=== PATIENT | female | born 1940 | race Caucasian/White ===

== ENCOUNTER 2016-05-04 12:22 | Outpatient (CLI) | payer MEDICARE, OTHER ==
[2016-05-04] MEDS ORDERED: IOPAMIDOL-300 100 ML VIAL IVP ONE (15:10)
[2016-05-04] MEDS ORDERED: IOPAMIDOL-300 50 ML VIAL PO ONE (15:10)
== END 2016-05-04 12:23 | disposition home or self-care (01) ==
DX: K57.30 Diverticulosis of large intestine without perforation or abscess without bleeding (principal); K62.89 Other specified diseases of anus and rectum
CPT/HCPCS: 36415; 74177; 82565; Q9967

== ENCOUNTER 2016-05-07 07:34 | Day surgery (SDC) | payer MEDICARE, OTHER ==
[2016-05-07] MEDS ORDERED: LACTATED RINGERS 1,000 ML IV ONE ×4 (08:36→12:28)
[2016-05-07] MEDS ORDERED: SODIUM CHLORIDE 0.9% 1,000 ML IV ONE (09:48)
[2016-05-07] MEDS ORDERED: BUPIVACAINE 0.5%-EPI 1:200000 PF 30 ML VIAL SUBQ ONE (11:29)
[2016-05-07] MEDS ORDERED: LIDOCAINE 1% 50 ML MDV SUBQ ONE (11:29)
[2016-05-07] MEDS ORDERED: fentaNYL 100 MCG/2 ML VIAL IVP ONE (11:49)
[2016-05-07] MEDS ORDERED: MIDAZOLAM 2 MG/2 ML VIAL IVP ONE (11:49)
[2016-05-07] MEDS ORDERED: PROPOFOL 200 MG/20 ML VIAL IVP ONE (11:49)
[2016-05-07] MEDS ORDERED: ROCURONIUM 50 MG/5 ML VIAL IVP ONE (11:49)
[2016-05-07] MEDS ORDERED: HYDROCORTISONE SUCCINATE 100 MG/2 ML VIAL IVP ONE (11:49)
[2016-05-07] MEDS ORDERED: ePHEDrine 50 MG/ML AMP IVP ONE (11:49)
[2016-05-07] MEDS ORDERED: ONDANSETRON 4 MG/2 ML VIAL IVP ONE (11:49)
[2016-05-07] MEDS ORDERED: DEXAMETHASONE 4 MG/ML VIAL IVP ONE (11:49)
== END 2016-05-07 07:35 | disposition home or self-care (01) ==
PROC: 0DBQ7ZZ Excision of Anus, Via Natural or Artificial Opening (ICD-10-PCS; 2016-05-07)
PROC: 0DBP7ZX Excision of Rectum, Via Natural or Artificial Opening, Diagnostic (ICD-10-PCS; principal; 2016-05-07 08:45)
DX: K64.8 Other hemorrhoids (principal); K64.4 Residual hemorrhoidal skin tags; K60.2 Anal fissure, unspecified; E89.0 Postprocedural hypothyroidism; K21.9 Gastro-esophageal reflux disease without esophagitis; Z79.52 Long term (current) use of systemic steroids; Z88.2 Allergy status to sulfonamides
CPT/HCPCS: 45100; 46200; J7120

== ENCOUNTER 2016-05-19 07:29 | Outpatient (CLI) | payer MEDICARE, OTHER ==
[2016-05-19] MEDS ORDERED: GADOBUTROL 7.5 MMOL/7.5 ML VIAL IVP ONE (08:49)
== END 2016-05-19 07:30 | disposition home or self-care (01) ==
DX: K62.89 Other specified diseases of anus and rectum (principal); M53.3 Sacrococcygeal disorders, not elsewhere classified

== ENCOUNTER 2016-06-01 07:01 | Day surgery (SDC) | payer MEDICARE, OTHER ==
[2016-06-01] MEDS ORDERED: LACTATED RINGERS 1,000 ML IV ONE ×2 (07:32→09:55)
[2016-06-01] MEDS ORDERED: MIDAZOLAM 2 MG/2 ML VIAL IVP ONE (08:31)
[2016-06-01] MEDS ORDERED: fentaNYL 100 MCG/2 ML VIAL IVP ONE (08:31)
== END 2016-06-01 07:02 | disposition home or self-care (01) ==
PROC: 0DJD8ZZ Inspection of Lower Intestinal Tract, Via Natural or Artificial Opening Endoscopic (ICD-10-PCS; principal; 2016-06-01 08:15)
DX: K62.89 Other specified diseases of anus and rectum (principal); K64.8 Other hemorrhoids; K64.4 Residual hemorrhoidal skin tags; K57.30 Diverticulosis of large intestine without perforation or abscess without bleeding
CPT/HCPCS: 45378; J7120

== ENCOUNTER 2017-11-17 07:57 | Outpatient (CLI) | payer MEDICARE, OTHER ==
[2017-11-17] MEDS ORDERED: GADOBUTROL 7.5 MMOL/7.5 ML VIAL ONE (08:02)
[2017-11-17] MEDS ORDERED: GADOBUTROL 7.5 MMOL/7.5 ML VIAL IVP ONE (08:53)
--- NOTE | 2017-11-17 10:29 | MRI Report ---
Reason: ALTERED MENTAL STATUS Procedure Date: 11/17/2017 Accession Number: [id number] / [id number] Procedure: MRI - Brain W/WO CPT Code: FULL RESULT: EXAM: MRI BRAIN WITHOUT AND WITH CONTRAST EXAM DATE: 11/17/2017 09:03 AM. CLINICAL HISTORY: 77-year-old presenting with altered mental status including worsening confusion, disorientation, and memory loss. COMPARISON: None. TECHNIQUE: Multiplanar, multisequence T1-weighted and fluid-sensitive MR sequences of the brain were performed. Sequences optimized for routine evaluation. Other: None. IV Contrast: 6.5 cc of Gadavist. FINDINGS: Brain Volume: Normal for age. Parenchyma: No acute parenchymal hemorrhage, mass, or midline shift. Mild to moderate bilateral areas of T2/flair signal hyperintensity seen with a more geographic area of FLAIR signal abnormality involving the subcortical left frontal lobe (371, image 19). There is minimal patchy flare signal hyperintensity seen within the july. No areas of restricted diffusion seen to suggest acute infarct. No definite abnormal areas of hemosiderin deposition. No abnormal enhancement. Ventricles/Cisterns: Ventricles appear prominent but appropriate for the extent of volume loss. No definite evidence of hydrocephalus. No abnormal extra-axial fluid collection or hemorrhage. Cisterns are patent. No abnormal postcontrast enhancement. Orbits: Symmetric and unremarkable. Sella Turcica: The pituitary gland, cavernous sinuses, suprasellar cistern and optic chiasm are unremarkable. IAC: Symmetric and unremarkable. Vasculature: Normal signal flow void is seen in the major arterial structures at the skull base. The dural sinuses are patent and enhance normally. Sinuses: No acute sinus disease. Bones: No focal pathologic appearing marrow signal changes. Other: T2 hyperintense lesion seen within the superficial left parotid lobe likely presenting parotid cyst measuring up to 6 mm (series 601, image 2). IMPRESSION: 1. No definite acute intracranial pathology seen; specifically, no acute infarct, acute intracranial hemorrhage, mass, hydrocephalus, or midline shift. No abnormal postcontrast enhancement. 2. Mild to moderate white matter changes seen that while nonspecific, most likely represent sequela of chronic small vessel ischemic disease. RADIA
== END 2017-11-17 07:58 | disposition home or self-care (01) ==
LOC: DI 07:57
PROVIDERS: ATTEND Internal Medicine
DX: R41.82 Altered mental status, unspecified (principal)
CPT/HCPCS: 70553; A9585

== ENCOUNTER 2018-01-27 11:10 | Outpatient (CLI) | payer MEDICARE, OTHER ==
[2018-01-27 17:16] LABS: BASOPHILS # (AUTO) 0.1 10^3/uL (0.0-0.1); BASOPHILS % (AUTO) 0.5 %; EOSINOPHILS # (AUTO) 0.2 10^3/uL (0.0-0.7); EOSINOPHILS % (AUTO) 2.2 %; HGB - HEMOGLOBIN 14.8 g/dL (12.0-16.0); LYMPHOCYTES # (AUTO) 2.9 10^3/uL (1.5-3.5); MEAN CORPUSCULAR HEMOGLOBIN 31.7 pg (27.0-31.0); MEAN CORPUSCULAR HGB CONC 33.7 g/dL (32.0-36.0); MEAN CORPUSCULAR VOLUME 94.2 fL (81.0-99.0); MEAN PLATELET VOLUME 8.3 fL (7.9-10.8); MONOCYTES # (AUTO) 0.8 10^3/uL (0.0-1.0); MONOCYTES % (AUTO) 7.7 %; NEUTROPHILS # (AUTO) 6.8 10^3/uL (1.5-6.6); NEUTROPHILS % (AUTO) 62.6 %; PLT - PLATELET COUNT 324 10^3/uL (130-450); RED BLOOD COUNT 4.66 10^6/uL (4.20-5.40); RED CELL DISTRIBUTION WIDTH 14.3 % (12.0-15.0); WHITE BLOOD COUNT 10.8 x10^3/uL (4.8-10.8)
[2018-01-27 17:31] LABS: ALBUMIN 4.2 g/dL (3.2-5.5); ALBUMIN/GLOBULIN RATIO 1.1 (1.0-2.2); ALKALINE PHOSPHATASE 68 IU/L (42-121); ALT ALANINE AMINOTRANSFERASE 17 IU/L (10-60); AST ASPARTATE AMINOTRANSFERASE 33 IU/L (10-42); BILIRUBIN,TOTAL 0.4 mg/dL (0.2-1.0); BUN - BLOOD UREA NITROGEN 16 mg/dL (6-20); CALCIUM 9.5 mg/dL (8.5-10.3); CARBON DIOXIDE - CO2 22 mmol/L (21-32); CHLORIDE 90 mmol/L (101-111); CHOL/HDL RATIO 2.5 (<4.4); CHOLESTEROL 229 mg/dL; CREATININE 0.8 mg/dL (0.4-1.0); GFR - MDRD 70 (>89); GLUCOSE 101 mg/dL (70-100); HDL CHOLESTEROL 91 mg/dL; LDL CHOLESTEROL,CALCULATED 123 mg/dL; LDL/HDL RATIO 1.4 (<4.4); SODIUM 129 mmol/L (135-145); VLDL CHOLESTEROL 15 mg/dL
[2018-01-27 17:45] LABS: THYROID STIMULATING HORMONE 12.38 uIU/mL (0.34-5.60)
[2018-01-27 17:47] LABS: FREE T4 (FREE THYROXINE) 0.86 ng/dL (0.58-1.64)
== END 2018-01-27 23:59 | disposition home or self-care (01) ==
LOC: LAB.WCP 11:10
PROVIDERS: ATTEND Family Medicine
DX: R03.0 Elevated blood-pressure reading, without diagnosis of hypertension (principal); Z13.220 Encounter for screening for lipoid disorders; E89.0 Postprocedural hypothyroidism; R41.3 Other amnesia
CPT/HCPCS: 36415; 80053; 80061; 82607; 82746; 83721; 84439; 84443; 84481; 85025

== ENCOUNTER 2018-02-23 08:00 | Outpatient (CLI) | payer MEDICARE, OTHER ==
[2018-02-23 19:11] LABS: CALCIUM 8.8 mg/dL (8.5-10.3); CREATININE 0.6 mg/dL (0.4-1.0)
== END 2018-02-23 23:59 | disposition home or self-care (01) ==
LOC: LAB.WCP 08:00
PROVIDERS: ATTEND Family Medicine
DX: R03.0 Elevated blood-pressure reading, without diagnosis of hypertension (principal); E89.0 Postprocedural hypothyroidism
CPT/HCPCS: 36415; 80048; 84443

== ENCOUNTER 2018-03-27 08:00 | Outpatient (CLI) | payer MEDICARE, OTHER | END 2018-03-27 23:59 | disposition home or self-care (01) | LOC: LAB.WCP 08:00 | PROVIDERS: ATTEND Family Medicine | DX: E87.1 Hypo-osmolality and hyponatremia (principal) | CPT/HCPCS: 83935; 84300 ==

== ENCOUNTER 2018-03-27 09:47 | Outpatient (CLI) | payer MEDICARE, OTHER ==
--- NOTE | 2018-03-28 10:18 | XRAY Report ---
Reason: LF/RT CERVICAL RADICULOPATHY Procedure Date: 03/27/2018 Accession Number: [id number] / [id number] Procedure: WCP - Cervical Spine 2 View CPT Code: FULL RESULT: EXAM: CERVICAL SPINE RADIOGRAPHY EXAM DATE: 03/27/2018 10:04 AM. CLINICAL HISTORY: LF/RT CERVICAL RADICULOPATHY. COMPARISONS: None. TECHNIQUE: 3 views. FINDINGS: Alignment: Accentuated cervical lordosis and upper thoracic kyphosis. Minimal retrolisthesis C4 with respect to C5 and minimal anterior listhesis C7 with respect to T1 .No scoliosis. Bones: The cervical vertebral bodies and posterior elements are well seen from the skull base through C7-T1. Probable T4 vertebral plana. Moderate T2 vertebral body height loss. Disks: Degenerative disk space narrowing C3-C4, C4-C5, C5-C6, and C6-C7. Facets: Scattered degenerative disease. Soft Tissues: No prevertebral soft tissue swelling. The included lung apices are clear. IMPRESSION: Multilevel degenerative change cervical spine. Cervical spinal stenosis may be present but could be best assessed by MRI. T4 greater than T2 vertebral body height loss. RADIA
== END 2018-03-27 09:48 | disposition home or self-care (01) ==
LOC: DI.WCP 09:47
PROVIDERS: ATTEND Family Medicine
DX: M50.31 Other cervical disc degeneration, high cervical region (principal); M47.9 Spondylosis, unspecified; E87.1 Hypo-osmolality and hyponatremia
CPT/HCPCS: 72040; 83935; 84300

== ENCOUNTER 2018-04-08 13:36 | Outpatient (CLI) | payer MEDICARE, OTHER ==
--- NOTE | 2018-04-09 21:12 | MRI Report ---
Reason: CERVICAL RADICULOPATHY, LEFT AND RIGHT Procedure Date: 04/08/2018 Accession Number: [id number] / [id number] Procedure: MRI - Cervical Spine W/O CPT Code: FULL RESULT: EXAM: MRI CERVICAL SPINE WITHOUT CONTRAST EXAM DATE: 04/08/2018 03:02 PM. CLINICAL HISTORY: 77-year-old female. CERVICAL RADICULOPATHY, LEFT AND RIGHT. COMPARISONS: Radiographs cervical spine 03/27/2018 TECHNIQUE: Multiplanar, multisequence T1-weighted and fluid-sensitive sequences of the cervical spine without contrast. Other: None. FINDINGS: Neurologic Structures: The visualized posterior fossa structures are unremarkable. No signal abnormality in the visualized spinal cord. Alignment: Exaggerated cervical lordosis. Grade 1 retrolisthesis C4 on C5 measuring 2.5 mm. Grade 1 anterolisthesis C6 on C7 measuring 2.5 mm. Grade 1 anterolisthesis T2 on T3 measuring 2 mm. Bone Marrow: No evidence of acute fracture. Chronic anterior wedge compression fracture deformity of the T4 vertebral body with near complete height loss anteriorly, 2 mm posterior retropulsion. Interspace Levels/Facets: C1-C2: Unremarkable. C2-C3: Unremarkable. C3-C4: Moderate disk height loss and desiccation. Moderate diffuse disk bulge. Mild anterior dural compression. No significant central canal narrowing. Moderate left and mild to moderate right foraminal narrowing. C4-C5: Moderate to severe disk height loss and desiccation. Moderate posterior disk osteophyte complex. Mild bilateral facet arthropathy. Mild central canal narrowing. Moderate right and mild to moderate left foraminal narrowing. C5-C6: Moderate disk height loss and desiccation. Moderate posterior disk osteophyte complex. Mild anterior compression. No significant central canal narrowing. No foraminal narrowing. C6-C7: Moderate disk height loss and desiccation. Mild diffuse disk bulge. No significant central canal narrowing. No foraminal narrowing. C7-T1: Mild diffuse disk bulge. No significant central canal or foraminal narrowing. Musculature: Normal. No edema or fatty atrophy. Other: The paravertebral and prevertebral soft tissues are normal. IMPRESSION: 1. Moderate multilevel degenerative spondylosis, as detailed above and summarized below. No evidence of acute fracture or malalignment. Chronic anterior wedge compression fracture deformity of the T4 vertebral body with near complete height loss anteriorly, 2 mm posterior retropulsion. No cord signal abnormality. No bone marrow edema. 2. Exaggerated cervical lordosis. Grade 1 retrolisthesis C4 on C5 measuring 2.5 mm. Grade 1 anterolisthesis C6 on C7 measuring 2.5 mm. Grade 1 anterolisthesis T2 on T3 measuring 2 mm. 3. C3-C4: No significant central canal narrowing. Moderate left and mild to moderate right foraminal narrowing. Recommend correlation for left C4 radicular symptoms. 4. C4-C5: Mild central canal narrowing. Moderate right and mild to moderate left foraminal narrowing. Recommend correlation for right C5 radicular symptoms. 5. No significant central canal or foraminal narrowing at remaining cervical levels. RADIA
== END 2018-04-08 13:37 | disposition home or self-care (01) ==
LOC: DI 13:36
PROVIDERS: ATTEND Physician Assistant
DX: M47.22 Other spondylosis with radiculopathy, cervical region (principal); M50.11 Cervical disc disorder with radiculopathy, high cervical region; M48.02 Spinal stenosis, cervical region; M40.50 Lordosis, unspecified, site unspecified; M48.54XA Collapsed vertebra, not elsewhere classified, thoracic region, initial encounter for fracture
CPT/HCPCS: 72141

== ENCOUNTER 2018-07-13 09:52 | Outpatient (CLI) | payer MEDICARE, OTHER | END 2018-07-13 09:53 | disposition critical access hospital (66) | LOC: EMS 09:52 | PROVIDERS: ATTEND Surgery | DX: R10.2 Pelvic and perineal pain (principal) | CPT/HCPCS: A0425; A0427 ==

== ENCOUNTER 2018-07-13 10:25 | Observation (INO) | payer MEDICARE, OTHER ==
[2018-07-13] MEDS ORDERED: SODIUM CHLORIDE 0.9% 1,000 ML IV ONE (11:31)
--- NOTE | 2018-07-13 11:34 | ED Physician Documentation ---
PD HPI Fall - Stated complaint Stated Complaint: GLF - Chief complaint Chief Complaint: Ext Problem - History obtained from History obtained from: Patient, Family () - History of Present Illness Mechanism of injury: Slipped Fall distance: Standing position Where injury occurred: Home Timing - onset: Yesterday Injury(ies) location: Left Lower Extremity - Additional information Additional information: The patient is a 78-year-old female who slipped on tile floor in her kitchen yesterday, falling onto her left side. She impacted her left hip on the floor. She denies hitting her head or losing consciousness. She was able to bear weight as her helped her to the bed after the incident. However she continues to complain of left hip pain with weightbearing this morning. She denies headache, neck pain, nausea or vomiting. Past medical history is significant for chronic shoulder pain since a fall 2 years ago that caused a T4 compression fracture. 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 Review of Systems Constitutional: denies: Fever Eyes: denies: Decreased vision Ears: denies: Tinnitus/ringing Nose: denies: Congestion Throat: denies: Sore throat Cardiac: denies: Chest pain / pressure Respiratory: denies: Dyspnea, Cough GI: denies: Abdominal Pain, Nausea, Vomiting : denies: Dysuria Skin: denies: Rash Musculoskeletal: reports: Joint pain (left hip). denies: Neck pain Neurologic: reports: Generalized weakness. 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 HEENT: Tonsil/Adenoidectomy - Present Medications Home Medications: Ambulatory Orders Medication Instructions Recorded Confirmed Levothyroxine [Synthroid] 75 mcg PO SUMOTUWETHFR@0700 05/28/14 07/13/18 Aspirin [Aspirin EC] 650 mg PO .Q4-6H PRN 07/13/18 07/13/18 Clonazepam 0.25 mg PO DAILY 07/13/18 07/13/18 Donepezil HCl [Aricept] 10 mg PO DAILY 07/13/18 07/13/18 Lidocaine [Lidoderm] 1 patch TOP DAILY 07/13/18 07/13/18 Phenazopyridine HCl [Pyridium] 200 mg PO BID PRN 07/13/18 07/13/18 traMADol [Ultram] 50 mg PO DAILY PRN 07/13/18 07/13/18 - Allergies Allergies/Adverse Reactions: Allergies Allergy/AdvReac Type Severity Reaction Status Date / Time nitrofurantoin Allergy Severe Hives Verified 07/13/18 10:34 macrocrystalline * [From Macrodantin] Sulfa (Sulfonamide Allergy Severe Hives Verified 07/13/18 10:34 Antibiotics) - Social History Does the pt smoke?: No Smoking Status: Never smoker Does the pt drink ETOH?: No Does the pt have substance abuse?: No - Immunizations Immunizations are current?: Yes PD ED PE NORMAL - Vitals Vital signs reviewed: Yes (Borderline systolic hypertension initially.) - General General: Alert and oriented X 3, Well developed/nourished, Other (Appears somewhat subdued and soft-spoken.) - HEENT HEENT: Atraumatic, PERRL, EOMI, Pharynx benign, Other (Dry oral mucosa.) - Neck Neck: No bony TTP, No adenopathy, No JVD - Cardiac Cardiac: RRR - Respiratory Respiratory: No respiratory distress, Clear bilaterally - Abdomen Abdomen: Soft, Non tender - Female Female : Other (Wearing a diaper.) - Back Back: No CVA TTP, No spinal TTP - Derm Derm: No rash - Extremities Extremities: No edema, No calf tenderness / cord, Other (There is tenderness with range of motion of the left hip. There is no shortening of the leg. There is tenderness to palpation over the left sacral region. Distal neurovascular is intact.) - Neuro Neuro: Alert and oriented X 3, No motor deficit, No sensory deficit Results - Vitals Vitals: Vital Signs - 24 hr 07/13/18 07/13/18 10:32 10:38 Temperature 36.5 C Heart Rate 88 89 Respiratory 16 17 Rate Blood Pressure 144/77 H 141/76 H O2 Saturation 96 98 Oxygen O2 Source Room air - Labs Labs: Laboratory Tests 07/13/18 07/13/18 07/13/18 10:56 11:35 11:35 WBC 15.1 H RBC 3.87 L Hgb 11.3 L Hct 34.2 L MCV 88.4 MCH 29.1 MCHC 32.9 RDW 17.2 H Plt Count 465 H MPV 7.2 L Neut # (Auto) 13.4 H Lymph # (Auto) 0.8 L Parke # (Auto) 0.8 Eos # (Auto) 0.0 Baso # (Auto) 0.0 Absolute Nucleated RBC 0.00 Nucleated RBC % 0.0 Sodium 130 L Potassium 3.8 Chloride 93 L Carbon Dioxide 24 Anion Gap 13.0 BUN 19 Creatinine 0.7 Estimated GFR (MDRD) 81 L Glucose 129 H Calcium 8.8 Total Bilirubin 0.4 AST 26 ALT 25 Alkaline Phosphatase 75 Total Protein 7.5 Albumin 2.9 L Globulin 4.6 H Albumin/Globulin Ratio 0.6 L Lipase 42 Urine Color YELLOW Urine Clarity CLEAR Urine pH 6.5 Ur Specific Mckenzie 1.010 Urine Protein TRACE Urine Glucose (UA) NEGATIVE Urine Ketones 15 H Urine Occult Blood TRACE-INTA Urine Nitrite POSITIVE H Urine Bilirubin NEGATIVE Urine Urobilinogen 1 (NORMAL) Ur Leukocyte Esterase NEGATIVE Urine RBC 0-5 Urine WBC 0-3 Ur Squamous Epith Cells RARE Squamous Urine Bacteria None Seen Ur Microscopic Review INDICATED Urine Culture Comments INDICATED - Rads (name of study) left hip Radiology: Prelim report reviewed, EMP read contemporaneously, See rad report (Rotation and foreshortening of the left hip, suspicious for possibility of nonvisualized femoral neck fracture. Left-sided pelvic rami fractures. Recommend CT pelvis.) CT pelvis Radiology: Prelim report reviewed, EMP read contemporaneously, See rad report (Comminuted minimally displaced fractures involving the left pubic body, superior and inferior pubic rami with separate nondisplaced fracture with cortical buckling at the lateral portion of the left inferior ramus. Slight cortical buckling indicating nondisplaced fracture left sacral ala.) PD MEDICAL DECISION MAKING - ED course Complexity details: reviewed results, re-evaluated patient, considered differential, d/w patient, d/w family, d/w insurance healthcare consultant ED course: The patient's presentation is significant for stable pelvic fracture, visualized on x-ray and evaluated more thoroughly with CT scan. She presents with significant immobility and pain problems secondary to the fracture. I discussed her condition with Dr. Sprague, who advises hospitalization and rehab. Since it is primarily medical management, he recommends hospitalist admission with orthopedic consult. I discussed her condition with Dr. Ram, who accepts her for further evaluation and treatment. Treatment in the emergency department included administration of fentanyl 50 mcg IV, and normal saline IV. Departure - Departure Disposition: ED Place in Observation Clinical Impression: Pelvic fracture Qualifiers: Encounter type: initial encounter Pelvic bone location: multiple parts Fracture type: closed Fracture alignment: with stable disruption of pelvic ring Qualified Code(s): S32.810A - Multiple fractures of pelvis with stable disruption of pelvic ring, initial encounter for closed fracture Condition: Stable Discharge Date/Time: 07/13/18 15:25
[2018-07-13 11:51] LABS: BILIRUBIN,URINE NEGATIVE (NEGATIVE); GLUCOSE, URINE (UA) NEGATIVE (NEGATIVE); KETONES,URINE (UA) 15 mg/dL (NEGATIVE); LEUKOCYTE ESTERASE, URINE NEGATIVE (NEGATIVE); NITRITE,URINE POSITIVE (NEGATIVE); OCCULT BLOOD,URINE TRACE-INTA (NEGATIVE); PH,URINE 6.5 PH (5.0-7.5); PROTEIN,URINE TRACE mg/dL (NEGATIVE); UROBILINOGEN,URINE 1 (NORMAL) E.U./dL (NORMAL)
[2018-07-13 11:53] LABS: CLARITY,URINE CLEAR (CLEAR)
[2018-07-13 11:57] LABS: BASOPHILS % (AUTO) 0.2 %; EOSINOPHILS % (AUTO) 0.1 %; HGB - HEMOGLOBIN 11.3 g/dL (12.0-16.0); LYMPHOCYTES # (AUTO) 0.8 10^3/uL (1.5-3.5); LYMPHOCYTES % (AUTO) 5.5 %; MEAN CORPUSCULAR HEMOGLOBIN 29.1 pg (27.0-31.0); MEAN CORPUSCULAR HGB CONC 32.9 g/dL (32.0-36.0); MEAN CORPUSCULAR VOLUME 88.4 fL (81.0-99.0); MEAN PLATELET VOLUME 7.2 fL (7.9-10.8); MONOCYTES # (AUTO) 0.8 10^3/uL (0.0-1.0); MONOCYTES % (AUTO) 5.5 %; NEUTROPHILS # (AUTO) 13.4 10^3/uL (1.5-6.6); NEUTROPHILS % (AUTO) 88.7 %; PLT - PLATELET COUNT 465 10^3/uL (130-450); RED BLOOD COUNT 3.87 10^6/uL (4.20-5.40); RED CELL DISTRIBUTION WIDTH 17.2 % (12.0-15.0); WHITE BLOOD COUNT 15.1 x10^3/uL (4.8-10.8)
[2018-07-13 12:00] LABS: ALBUMIN 2.9 g/dL (3.2-5.5); ALBUMIN/GLOBULIN RATIO 0.6 (1.0-2.2); BILIRUBIN,TOTAL 0.4 mg/dL (0.2-1.0); CALCIUM 8.8 mg/dL (8.5-10.3); CREATININE 0.7 mg/dL (0.4-1.0); TOTAL PROTEIN 7.5 g/dL (6.7-8.2)
[2018-07-13 12:19] LABS: BACTERIA,URINE None Seen /HPF (None Seen); RBC,URINE 0-5 /HPF (0-5); SQUAMOUS EPITHELIAL CELL,UR RARE Squamous (<= Few)
--- NOTE | 2018-07-13 12:23 | XRAY Report ---
Reason: Fall with left hip pain Procedure Date: 07/13/2018 Accession Number: [id number] / [id number] Procedure: XR - Hip w/Pelvis 2-3V LT CPT Code: FULL RESULT: EXAM: LEFT HIP RADIOGRAPHY EXAM DATE: 07/13/2018 12:07 PM. CLINICAL HISTORY: Fall with left hip pain. COMPARISON: None. TECHNIQUE: 2 views. FINDINGS: Bones: The femoral neck is not well seen on the frontal radiograph due to rotation of the left leg with apparent foreshortening. The lateral radiograph also does not show the femoral neck well. The left inferior and superior pubic rami are fractured. Joints: Lateral radiograph excludes a dislocation of the left hip. Soft Tissues: Normal. No soft tissue swelling. IMPRESSION: Rotation and foreshortening of the left hip, suspicious for possibility of nonvisualized femoral neck fracture. Left-sided pubic rami fractures. Recommendation: CT pelvis. CRITICAL RESULT: The findings were discussed with Dr. Jain on 07/13/2018 at 12:21 PM. RADIA
[2018-07-13] MEDS ORDERED: fentaNYL 100 MCG/2 ML VIAL IVP STA (12:33)
--- NOTE | 2018-07-13 13:36 | CT Report ---
Reason: Hip pain, poss frx Procedure Date: 07/13/2018 Accession Number: [id number] / [id number] Procedure: CT - PELVIS WO CPT Code: FULL RESULT: EXAM: CT BONY PELVIS WITHOUT CONTRAST EXAM DATE: 07/13/2018 01:09 PM. CLINICAL HISTORY: Hip pain, poss frx. COMPARISON: None. TECHNIQUE: Thin-section axial images were acquired of the pelvis without contrast. Post-processing: Coronal and sagittal reformats. Other: None. In accordance with CT protocol optimization, one or more of the following dose reduction techniques were utilized for this exam: automated exposure control, adjustment of mA and/or KV based on patient size, or use of iterative reconstructive technique. FINDINGS: Bones and articular surfaces: Comminuted fractures involving the left pubic body extending to the superior and inferior pubic ramus. Separate fracture near the lateral margin of the left inferior ramus with buckling of the cortex anteriorly. Some buckling of the cortex of the left sacral ala consistent with nondisplaced fracture. Sacroiliac joints appear symmetric and within normal limits. Mild lower lumbar degenerative facet arthropathy. Minimal grade 1 L4-L5 spondylolisthesis. Mild bilateral axial hip joint space narrowing. No femoral fracture. Soft tissues: Musculotendinous structures appear intact. No significant muscle atrophy. There is some asymmetric thickening of the left obturator internus muscle likely representing some degree of intramuscular hematoma. Fat stranding adjacent to the fractures. Small amount of calcified atherosclerotic plaque. Normal appendix. Scattered sigmoid diverticula. IMPRESSION: 1. Comminuted minimally displaced fractures involving the left pubic body, superior and inferior pubic rami with separate nondisplaced fracture with cortical buckling at the lateral portion of the left inferior ramus. Slight cortical buckling indicating nondisplaced fracture left sacral ala. RADIA
[2018-07-13] MEDS ORDERED: ACETAMINOPHEN 325 MG TABLET PO PRN (14:06)
[2018-07-13] MEDS ORDERED: SODIUM CHLORIDE FLUSH 0.9% 10 ML SYRINGE IVP PRN (14:06)
[2018-07-13] MEDS ORDERED: TEMAZEPAM 15 MG CAPSULE PO PRN (14:06)
[2018-07-13] MEDS ORDERED: ONDANSETRON 4 MG/2 ML VIAL IVP PRN (14:06)
[2018-07-13] MEDS ORDERED: WITCH HAZEL/GLYCERIN 1 EACH MED..PAD TOP ONE (14:07)
--- NOTE | 2018-07-13 14:09 | HISTORY & PHYSICAL EXAMINATION ---
Chief Complaint - Chief Complaint Chief Complaint: fall, pelvic fx History of Present Illness - Admitted From Admitted From:: ED - History Obtained From Records Reviewed: yes History obtained from: chart review, patient Exam Limitations: poor historian, at the bedside - History of Present Illness HPI Comment/Other: Amada Marshall is an ill appearing 78-year old female with a past medical history of Alzheimer's dementia, hypothyroidism, status post thyroidectomy, bladder sling surgery, frequent falls, left breast cancer 11 years ago- in remission, compression fracture of T4, chronic pain syndrome, nocturia, de pression, and anxiety. The patient was brought in via EMS to the ED after sustaining a ground level fall. Her , Flynn, spoke on his 's behave given her profound dementia and reports that a few days ago, his fell while attempting to get to the bathroom, landing on her left side. Since that time, she has not been able to ambulate, and her pain has become so unbearable despite staying in bed. He states that yesterday, she ate nothing, and only drank a few sips of liquid. He states that this is not the first fall and his has been having several falls over the past few weeks without injury. He denies loss of consciousness, but at times has found her on the floor, so he can't say for sure if they were mechanical falls. He states that she has not eaten any solid food for the past 8-10 months and relies on "slim fast" as her nutrition source. He states that for the past week, she has complained more of dysuria with urgency, frequency and burning. Labs show an elevated WBC count of 15.1, low H/H at 11.3/34.2, elevated platelet level of 465, neut # 13.4, sodium of 130, potassium of 3.8, GFR of 81, glucose of 129, low albumin of 2.9, and a urine test that is + for nitrites, elevated ketones, and 0-3 WBCs, culture is pending. A pelvic CT showed minimally displaced fractures involving the left pubic body, superior and inferior pubic rami with separate nondisplaced fracture with cortical buckling at the lateral portion of the left inferior ramus. The patient cannot roll over in bed without crying out on my initial exam, is a poor historian, does not recall the actual fall, and appears acutely ill. She continues to have dysuria with urgency, frequency, burning and incontinence. She will be admitted to observation for intractable pain, PT evaluation, syncope work up, and to treat this acute UTI. 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 Father: no chronic illnesses, now . Brother: alive and well, history of CAD Living arrangement: At home Living Situation: With spouse/s.o. Social History Notes: The patient is to her , Flynn who is a retired orthopedic surgeon and resides at home with him as her sole care provider. 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 They have 3 grown daughters that the [place] see [place] The patient denies tobacco or alcohol use. Her admits to recent trials of CBD, and THC oils to treat her back pain. She wishes to be a DNR. - Substance History Use: Uses substance without health or social issues: NONE Abuse: Recurrent use of substance despite neg consequences: NONE Dependence: Experiences withdrawal or developed tolerances: NONE - POLST Patient has POLST: No POLST Status: DNR Meds/Allgy - Home Medications Home Medications: Ambulatory Orders Medication Instructions Recorded Confirmed Levothyroxine [Synthroid] 75 mcg PO SUMOTUWETHFR@0700 05/28/14 07/13/18 Aspirin [Aspirin EC] 650 mg PO .Q4-6H PRN 07/13/18 07/13/18 Clonazepam 0.25 mg PO DAILY 07/13/18 07/13/18 Donepezil HCl [Aricept] 10 mg PO DAILY 07/13/18 07/13/18 Lidocaine [Lidoderm] 1 patch TOP DAILY 07/13/18 07/13/18 Phenazopyridine HCl [Pyridium] 200 mg PO BID PRN 07/13/18 07/13/18 traMADol [Ultram] 50 mg PO DAILY PRN 07/13/18 07/13/18 - Allergies Allergies/Adverse Reactions: Allergies Allergy/AdvReac Type Severity Reaction Status Date / Time nitrofurantoin Allergy Severe Hives Verified 07/13/18 10:34 macrocrystalline * [From Macrodantin] Sulfa (Sulfonamide Allergy Severe Hives Verified 07/13/18 10:34 Antibiotics) Review of Systems - Constitutional Constitutional: reports: Fatigue, Chills, Malaise, Weakness, Poor appetite, Weight loss (20 lbs in the past 6 months) - Eyes Eyes: reports: Vision loss - Ears, Nose & Throat Ears, Nose & Throat: reports: Postnasal drainage - Cardiovascular Cariovascular: reports: Syncope, Decr. exercise tolerance - Gastrointestinal Gastrointestinal: reports: Nausea, Reflux/heartburn, Poor appetite - Genitourinary Genitourinary: reports: Dysuria, Frequency, Urgency, Nocturia - Musculoskeletal Musculoskeletal: reports: Back pain, Muscle aches, Stiffness, Limited range of motion, Joint swelling (bilateral hip swelling) - Integumentary Integumentary: reports: Dryness - Neurological Neurological: reports: General weakness, Dizziness, Memory problems, Pre- existing deficit, Abnormal gait - Psychiatric Psychiatric: reports: Depression - All Other Systems All Other Systems: reports: Reviewed and negative Prior Level of Functionality: Had been ambulatory prior to this fall resulting in a fractured pelvis. Lives independently with her . Was previously doing all of her ADLs independently. Exam - Vital Signs Reviewed Vital Signs: Yes Vital Signs: Vital Signs x48h Temp Pulse Resp BP Pulse Ox 06/06/19 10:38 89 17 141/76 H 98 07/13/18 10:32 36.5 C 88 16 144/77 H 96 - Physical Exam General Appearance: positive: Alert, Moderate distress, Anxious Eyes Bilateral: positive: PERRL ENT: positive: Pharynx nml, Dry mucous membranes Neck: positive: No JVD, Trachea midline Respiratory: positive: Chest non-tender, No respiratory distress, Other (diminished bilaterally) Cardiovascular: positive: Regular rate & rhythm, No gallop, Systolic murmur Peripheral Pulses: positive: 2+ Abdomen: positive: Nml bowel sounds, Tenderness, Guarding, Other (soft) Back: positive: Nml inspection Skin: positive: No rash, Warm, Dry, Pallor Extremities: positive: No pedal edema, Joint swelling (left greater than right hip swelling and tenderness since her fall) Neurologic/Psychiatric: positive: CN's nml (2-12), Disoriented to place, Disoriented to time, Weakness, Sensory loss, Slurred/abnml speech (baseline sluggish speech, advanced dementia), Depressed mood/affect Reflexes: Bicep (R): 2+, Bicep (L): 2+ Conclusion/Plan - Problem List (1) Intractable pain Conclusion/Plan: - Patient complains of left hip, leg, and groin pain that is uncontrolled - Has not been able to ambulate since her injury, pelvic fracture - Prescribed tramadol at home, lidocaine patches for her known T4 compression fracture - Give IV fentanyl in the ED - Now on IV diluadid, or hydrocodone as needed - Differential dx may be spinal/bone metastatic disease from her history of breast cancer Plan: Continue to offer pain meds, treat acute infection, await PT evaluation (2) Fall Conclusion/Plan: - Per the patient's , Flynn, she has been falling more often at home - Now with a pelvic fracture - Inability to ambulate - Fell while attempting to get to the bathroom - Is thought to not have loss of consciousness Plan: Bedrest for now, fall precautions, ortho surgery consult Qualifiers: Encounter type: subsequent encounter Qualified Code(s): W19.XXXD - Unspecified fall, subsequent encounter (3) Pelvic fracture Conclusion/Plan: - Pelvic CT shows a left pubic ramus fracture involving the superior, inferior, and body - Uncontrolled pain, with only minimal relief - Added IV dilaudid Plan: Bedrest, await ortho-surgery input, PT to evaluate for rehab potential, control pain Qualifiers: Encounter type: initial encounter Pelvic bone location: multiple parts Fracture type: closed Fracture alignment: with stable disruption of pelvic ring Qualified Code(s): S32.810A - Multiple fractures of pelvis with stable disruption of pelvic ring, initial encounter for closed fracture (4) Hyponatremia Conclusion/Plan: - Prior hospital stays with sodium levels in the 115 range - now sodium level is low at 130 - May be related to poor nutrition, or infection Plan: Monitor labs, start NS IV fluids, monitor for worsening AMS (5) UTI (urinary tract infection) Conclusion/Plan: - Increased dysuria per with burning, urgency and frequency for the past few weeks at home - WBC count up to 15.1 - UA + nitrites, culture is pending - Chronic nocturia Plan: Start Rocephin, await urine cx results, IVFs Qualifiers: Urinary tract infection type: acute cystitis (6) Dysuria Conclusion/Plan: - Increased symptoms over the past few weeks prior to this admission - Upon arrival to the nursing floor, patient continues to have urgency and frequency Plan: Offer pure-wick, resume Pyridium, bladder scans Q shift, treat acute UTI (7) Protein-calorie malnutrition, moderate Conclusion/Plan: - states that for the past 8-10 months the patient has been drinking a few slim fast drinks as her main nutrition source - Anemia noted on labs - Appears cachectic - Weight loss has been gradual; over 20 lbs in the past 6 months Plan: Encourage PO intake, nutrition consult for food choices (8) Breast cancer Conclusion/Plan: - Status post lumpectomy and thyroidectomy ~ 11 years ago - No issues since that time, except spinal involvement with compression fractures- chronic back pain for at least the past 1 year Plan: Continue to treat acute and chronic pain, consider palliative care consult (9) Alzheimer's dementia Conclusion/Plan: - brain imaging (MRI) from November of 2017 show moderate white matter disease - Poor historian on exam as expected - can attest to his as having very poor short term memory loss - Most concerning is that this condition may be a hindrance to her PT rehab potential Plan: Monitor for worsening AMS, provide continuity of cares with nursing staff Qualifiers: Dementia behavioral disturbance: with behavioral disturbance (10) Hypothyroidism Conclusion/Plan: - Takes synthroid 75 mcg 6 days per week at home, continued here Plan: Check a TSH in the AM - Lab Results Lab results reviewed: Yes [place] Bones: 07/14/18 04:55 07/14/18 04:55 - Diagnostic Imaging Results Diagnostic Imaging Results: positive: Final report reviewed Core Measures - Anticipated LOS I expect patient to be DC'd or transferred within 96 hours.: Yes - DVT/VTE - Prophylaxis VTE/DVT Device ordered at admit?: Yes VTE/DVT Prophylaxis med ordered at admit?: Yes - Stroke - Rehab Assessment Rehab services assessment to be ordered?: Yes - AMI - Statin at Admit Aspirin Prescribed on Admit: Yes
[2018-07-13] MEDS ORDERED: ASPIRIN EC 325 MG TABLET PO PRN (15:18)
[2018-07-13] MEDS: SODIUM CHLORIDE 0.9% 1,000 ML IV SCH (15:37)
[2018-07-13] MEDS: HYDROcod/ACETAM 5/325 MG TABLET PO PRN ×2 (15:39→19:40)
[2018-07-13] MEDS ORDERED: cefTRIAXone 2 GM in SODIUM CHLORIDE 0.9% MINIBAG 100 ML IV SCH (16:00)
[2018-07-13] MEDS: SODIUM CHLORIDE FLUSH 0.9% 10 ML SYRINGE IVP SCH (17:07)
[2018-07-13] MEDS: traMADol 50 MG TABLET PO PRN (18:59)
[2018-07-13] MEDS ORDERED: HYDROmorphone 1 MG/ML CARPUJECT IVP PRN (19:06)
[2018-07-13] MEDS: FAMOTIDINE 20 MG TABLET PO SCH (21:04)
[2018-07-14] MEDS: SODIUM CHLORIDE 0.9% 1,000 ML IV SCH ×2 (00:25→09:17)
[2018-07-14] MEDS: SODIUM CHLORIDE FLUSH 0.9% 10 ML SYRINGE IVP SCH ×3 (01:00→18:06)
[2018-07-14] MEDS: HYDROcod/ACETAM 5/325 MG TABLET PO PRN ×4 (04:02→19:23)
[2018-07-14 05:34] LABS: BASOPHILS # (AUTO) 0.1 10^3/uL (0.0-0.1); BASOPHILS % (AUTO) 0.4 %; EOSINOPHILS # (AUTO) 0.1 10^3/uL (0.0-0.7); EOSINOPHILS % (AUTO) 0.5 %; HGB - HEMOGLOBIN 10.3 g/dL (12.0-16.0); LYMPHOCYTES # (AUTO) 1.8 10^3/uL (1.5-3.5); LYMPHOCYTES % (AUTO) 13.1 %; MEAN CORPUSCULAR HEMOGLOBIN 29.3 pg (27.0-31.0); MEAN CORPUSCULAR HGB CONC 32.9 g/dL (32.0-36.0); MEAN PLATELET VOLUME 7.3 fL (7.9-10.8); MONOCYTES # (AUTO) 0.9 10^3/uL (0.0-1.0); MONOCYTES % (AUTO) 6.6 %; NEUTROPHILS # (AUTO) 11.2 10^3/uL (1.5-6.6); NEUTROPHILS % (AUTO) 79.4 %; PLT - PLATELET COUNT 449 10^3/uL (130-450); RED BLOOD COUNT 3.52 10^6/uL (4.20-5.40); RED CELL DISTRIBUTION WIDTH 17.2 % (12.0-15.0); WHITE BLOOD COUNT 14.1 x10^3/uL (4.8-10.8)
[2018-07-14 05:48] LABS: ALBUMIN 2.5 g/dL (3.2-5.5); ALBUMIN/GLOBULIN RATIO 0.6 (1.0-2.2); BILIRUBIN,TOTAL 0.4 mg/dL (0.2-1.0); CALCIUM 8.1 mg/dL (8.5-10.3); CREATININE 0.5 mg/dL (0.4-1.0); PHOSPHORUS 2.4 mg/dL (2.5-4.6); TOTAL PROTEIN 6.4 g/dL (6.7-8.2)
[2018-07-14] MEDS ORDERED: LEVOTHYROXINE 75 MCG TABLET PO SCH (07:00)
--- NOTE | 2018-07-14 08:43 | CONSULTATION NOTE ---
Referring Provider Name of Referring Provider:: Jain Consult Date: 07/14/18 Chief Complaint - Chief Complaint Chief Complaint: left hip/pelvis pain after fall yesterday History of Present Illness - Admitted From Admitted From:: er - History Obtained From Records Reviewed: Admit records History obtained from: Patient. Poor historian secondary to being groggy and on meds - History of Present Illness HPI Comment/Other: 75 yr old female s/p GLF in home yesterday. Injury to left hip and pelvis. Unable to ambulate and in pain. 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 Social History Notes: The patient is to her , Flynn who is a retired orthopedic surgeon and resides at home with him as her sole care provider. 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 They have 3 grown daughters that the rarely see [place] The patient denies tobacco or alcohol use. Her admits to recent trials of CBD, and THC oils to treat her back pain. She wishes to be a DNR. - Substance History Use: Uses substance without health or social issues: NONE Abuse: Recurrent use of substance despite neg consequences: NONE Dependence: Experiences withdrawal or developed tolerances: NONE - POLST Patient has POLST: No POLST Status: DNR Meds/Allgy - Home Medications Home Medications: Ambulatory Orders Medication Instructions Recorded Confirmed Levothyroxine [Synthroid] 75 mcg PO SUMOTUWETHFR@0700 05/28/14 07/13/18 Aspirin [Aspirin EC] 650 mg PO .Q4-6H PRN 07/13/18 07/13/18 Clonazepam 0.25 mg PO DAILY 07/13/18 07/13/18 Donepezil HCl [Aricept] 10 mg PO DAILY 07/13/18 07/13/18 Lidocaine [Lidoderm] 1 patch TOP DAILY 07/13/18 07/13/18 Phenazopyridine HCl [Pyridium] 200 mg PO BID PRN 07/13/18 07/13/18 traMADol [Ultram] 50 mg PO DAILY PRN 07/13/18 07/13/18 - Allergies Allergies/Adverse Reactions: Allergies Allergy/AdvReac Type Severity Reaction Status Date / Time nitrofurantoin Allergy Severe Hives Verified 07/13/18 10:34 macrocrystalline * [From Macrodantin] Sulfa (Sulfonamide Allergy Severe Hives Verified 07/13/18 10:34 Antibiotics) Exam - Vital Signs Reviewed Vital Signs: Yes Vital Signs: Vital Signs x48h Temp Pulse Pulse Resp BP Pulse Ox 07/14/18 08:16 36.9 C 85 17 145/71 H 93 07/14/18 04:00 36.6 C 88 16 155/80 H 96 07/14/18 01:42 36.9 C 90 16 95 - Physical Exam General Appearance: positive: No acute distress Eyes Bilateral: positive: Normal inspection ENT: positive: ENT inspection nml Neck: positive: Nml inspection Respiratory: positive: No respiratory distress Cardiovascular: positive: Regular rate & rhythm Peripheral Pulses: positive: 2+ Abdomen: positive: Non-tender Skin: positive: Color nml Extremities: positive: Other (left hip, groin and sacral area tenderness. Not able to do SLR on the left and has pain with passive motion. No leg swelling and soledad's negative.) Neurologic/Psychiatric: positive: Other (sleepy, groggy. somewhat vague and poor historian/exam) Conclusion/Plan - Diagnosis Diagnosis: closed Pelvis fracture: left pubic rami/ left sacral ala. plan early mobilization, pain control, dvt prophylaxis. - Lab Results Lab results reviewed: Yes [place] Bones: 07/14/18 04:55 07/14/18 04:55
[2018-07-14] MEDS: ENOXAPARIN 40 MG/0.4 ML SYRINGE SUBQ SCH (09:16)
[2018-07-14] MEDS: POLYETHYLENE GLYCOL 3350 17 GM PACKET PO SCH (09:16)
[2018-07-14] MEDS: FAMOTIDINE 20 MG TABLET PO SCH ×2 (09:16→21:18)
[2018-07-14] MEDS: LIDOCAINE PATCH 5% TOP SCH (09:16)
[2018-07-14] MEDS ORDERED: PHENAZOPYRIDINE 100 MG TABLET PO PRN (11:00)
--- NOTE | 2018-07-14 11:33 | PROVIDER PROGRESS NOTE ---
Subjective - Prog Note Date Prog Note Date: 07/14/18 Prog Note Time: 11:27 - Subjective Pt reports feeling: Improved Subjective: Amada complains of ongoing rectal and hip pain that is slightly improved since admission. Her , Flynn is at the bedside for this exam. Current Medications - Current Medications Current Medications: Active Medications: Acetaminophen (Tylenol) 650 mg PO Q4HR PRN Hydrocodone Bitart/Acetaminophen ([place] 5/325) 1 tab PO Q4HR PRN Amoxicillin/Clavulanate Potassium (Augmentin 875/125) 1 tab PO BID DREW Aspirin (Ecotrin) 650 mg PO Q4H PRN Clonazepam (Klonopin) 0.25 mg PO DAILY DREW Donepezil HCl (Aricept) 10 mg PO DAILY DREW Enoxaparin Sodium (Lovenox) 40 mg SUBQ DAILY DREW Famotidine (Pepcid) 20 mg PO BID DREW Levothyroxine Sodium (Synthroid) 88 mcg PO QDAC DREW Lidocaine (Lidoderm Patch) 1 patch TOP DAILY DREW Mirtazapine (Remeron) 7.5 mg PO QPM DREW Phenazopyridine HCl (Pyridium) 200 mg PO BID PRN Polyethylene Glycol (Miralax) 17 gm PO DAILY DREW Tramadol HCl (Ultram) 50 mg PO DAILY PRN HOME meds: Levothyroxine [Synthroid] 75 mcg PO SUMOTUWETHFR@0700 05/28/14 Aspirin [Aspirin EC] 650 mg PO .Q4-6H PRN 07/13/18 Clonazepam 0.25 mg PO DAILY 07/13/18 Donepezil HCl [Aricept] 10 mg PO DAILY 07/13/18 Lidocaine [Lidoderm] 1 patch TOP DAILY 07/13/18 Phenazopyridine HCl [Pyridium] 200 mg PO BID PRN 07/13/18 traMADol [Ultram] 50 mg PO DAILY PRN 07/13/18 Objective - Vital Signs/Intake & Output Reviewed Vital Signs: Yes Vital Signs: Vital Signs x48h Temp Pulse Resp BP Pulse Ox 07/14/18 08:16 36.9 C 85 17 145/71 H 93 07/14/18 04:00 36.6 C 88 16 155/80 H 96 Intake & Output: Intake & Output 07/11/18 07/12/18 07/13/18 07/14/18 23:59 23:59 23:59 23:59 Intake Total 1500 1965.667 Output Total 300 Balance 1200 1965.7 - Objective General Appearance: positive: Alert, Moderate distress Eyes Bilateral: positive: PERRL Eyes: OU Conjunctivae pale, OU Other (pin point pupils) ENT: positive: Pharynx nml, Dry mucous membranes Neck: positive: No JVD, Trachea midline Respiratory: positive: Chest non-tender, No respiratory distress, Breath sounds nml Cardiovascular: positive: Regular rate & rhythm, No gallop, Systolic murmur Peripheral Pulses: 1+ Radial (R), 1+ Radial (L) Abdomen: positive: Non-tender, Nml bowel sounds, Guarding Back: positive: Nml inspection, CVA tenderness (R), CVA tenderness (L) Skin: positive: No rash, Warm, Dry, Pallor Extremities: positive: Nml appearance, No pedal edema, Joint swelling (bilateral hip tenderness with mild swelling) Neurologic/Psychiatric: positive: Disoriented to place, Disoriented to time, Weakness, Slurred/abnml speech, Depressed mood/affect, Other (baseline advanced dementia) Reflexes: Bicep (R): 3+, Bicep (L): 3+ - Lab Results Fish Bones: 07/15/18 05:32 07/15/18 05:32 Other Labs: Lab Results x24hrs 07/14/18 07/14/18 07/14/18 Range/Units 04:55 04:55 04:55 WBC 14.1 H (4.8-10.8) x10^3/uL RBC 3.52 L (4.20-5.40) 10^6/uL Hgb 10.3 L (12.0-16.0) g/dL Hct 31.4 L (37.0-47.0) % MCV 89.0 (81.0-99.0) fL MCH 29.3 (27.0-31.0) pg MCHC 32.9 (32.0-36.0) g/dL RDW 17.2 H (12.0-15.0) % Plt Count 449 (130-450) 10^3/uL MPV 7.3 L (7.9-10.8) fL Neut # (Auto) 11.2 H (1.5-6.6) 10^3/uL Lymph # (Auto) 1.8 (1.5-3.5) 10^3/uL [place] # (Auto) 0.9 (0.0-1.0) 10^3/uL Eos # (Auto) 0.1 (0.0-0.7) 10^3/uL Baso # (Auto) 0.1 (0.0-0.1) 10^3/uL Absolute Nucleated RBC 0.00 x10^3/uL Nucleated RBC % 0.0 /100WBC Sodium 131 L (135-145) mmol/L Potassium 3.2 L (3.5-5.0) mmol/L Chloride 98 L (101-111) mmol/L Carbon Dioxide 21 (21-32) mmol/L Anion Gap 12.0 (6-13) BUN 11 (6-20) mg/dL Creatinine 0.5 (0.4-1.0) mg/dL Estimated GFR (MDRD) 119 (>89) Glucose 113 H (70-100) mg/dL Calcium 8.1 L (8.5-10.3) mg/dL Phosphorus 2.4 L (2.5-4.6) mg/dL Magnesium 2.0 (1.7-2.8) mg/dL Total Bilirubin 0.4 (0.2-1.0) mg/dL AST 23 (10-42) IU/L ALT 23 (10-60) IU/L Alkaline Phosphatase 66 (42-121) IU/L Total Protein 6.4 L (6.7-8.2) g/dL Albumin 2.5 L (3.2-5.5) g/dL Globulin 3.9 (2.1-4.2) g/dL Albumin/Globulin Ratio 0.6 L (1.0-2.2) Lipase (22-51) U/L TSH 17.77 H (0.34-5.60) uIU/mL Urine Color Urine Clarity (CLEAR) Urine pH (5.0-7.5) PH Ur Specific [place] (1.002-1.030) Urine Protein (NEGATIVE) mg/dL Urine Glucose (UA) (NEGATIVE) mg/dL Urine Ketones (NEGATIVE) mg/dL Urine Occult Blood (NEGATIVE) Urine Nitrite (NEGATIVE) Urine Bilirubin (NEGATIVE) Urine Urobilinogen (NORMAL) E.U./dL Ur Leukocyte Esterase (NEGATIVE) Urine RBC (0-5) /HPF Urine WBC (0-5) /HPF Ur Squamous Epith Cells (<= Few) Urine Bacteria (None Seen) /HPF Ur Microscopic Review Urine Culture Comments 07/13/18 07/13/18 07/13/18 Range/Units 11:35 11:35 10:56 WBC 15.1 H (4.8-10.8) x10^3/uL RBC 3.87 L (4.20-5.40) 10^6/uL Hgb 11.3 L (12.0-16.0) g/dL Hct 34.2 L (37.0-47.0) % MCV 88.4 (81.0-99.0) fL MCH 29.1 (27.0-31.0) pg MCHC 32.9 (32.0-36.0) g/dL RDW 17.2 H (12.0-15.0) % Plt Count 465 H (130-450) 10^3/uL MPV 7.2 L (7.9-10.8) fL Neut # (Auto) 13.4 H (1.5-6.6) 10^3/uL Lymph # (Auto) 0.8 L (1.5-3.5) 10^3/uL [place] # (Auto) 0.8 (0.0-1.0) 10^3/uL Eos # (Auto) 0.0 (0.0-0.7) 10^3/uL Baso # (Auto) 0.0 (0.0-0.1) 10^3/uL Absolute Nucleated RBC 0.00 x10^3/uL Nucleated RBC % 0.0 /100WBC Sodium 130 L (135-145) mmol/L Potassium 3.8 (3.5-5.0) mmol/L Chloride 93 L (101-111) mmol/L Carbon Dioxide 24 (21-32) mmol/L Anion Gap 13.0 (6-13) BUN 19 (6-20) mg/dL Creatinine 0.7 (0.4-1.0) mg/dL Estimated GFR (MDRD) 81 L (>89) Glucose 129 H (70-100) mg/dL Calcium 8.8 (8.5-10.3) mg/dL Phosphorus (2.5-4.6) mg/dL Magnesium (1.7-2.8) mg/dL Total Bilirubin 0.4 (0.2-1.0) mg/dL AST 26 (10-42) IU/L ALT 25 (10-60) IU/L Alkaline Phosphatase 75 (42-121) IU/L Total Protein 7.5 (6.7-8.2) g/dL Albumin 2.9 L (3.2-5.5) g/dL Globulin 4.6 H (2.1-4.2) g/dL Albumin/Globulin Ratio 0.6 L (1.0-2.2) Lipase 42 (22-51) U/L TSH (0.34-5.60) uIU/mL Urine Color YELLOW Urine Clarity CLEAR (CLEAR) Urine pH 6.5 (5.0-7.5) PH Ur Specific [place] 1.010 (1.002-1.030) Urine Protein TRACE (NEGATIVE) mg/dL Urine Glucose (UA) NEGATIVE (NEGATIVE) mg/dL Urine Ketones 15 H (NEGATIVE) mg/dL Urine Occult Blood TRACE-INTA (NEGATIVE) Urine Nitrite POSITIVE H (NEGATIVE) Urine Bilirubin NEGATIVE (NEGATIVE) Urine Urobilinogen 1 (NORMAL) (NORMAL) E.U./dL Ur Leukocyte Esterase NEGATIVE (NEGATIVE) Urine RBC 0-5 (0-5) /HPF Urine WBC 0-3 (0-5) /HPF Ur Squamous Epith Cells RARE Squamous (<= Few) Urine Bacteria None Seen (None Seen) /HPF Ur Microscopic Review INDICATED Urine Culture Comments INDICATED ABX Reporting Has patient been on IV antibiotics over the past 48 hours?: No Assessment/Plan - Problem List (1) Intractable pain Impression: - Patient complains of left hip, leg, and groin pain that is more controlled today - Has been able to ambulate since her injury, pelvic fracture with staff and doing fair in PT sessions - Prescribed tramadol at home, lidocaine patches for her known T4 compression fracture and continued here - Continue Hydrocodone as needed - Differential dx may be spinal/bone metastatic disease from her history of breast cancer - Met with radiology provider who does not believe her recent fracture or compression fracture of T4 show a probability of bone mets (not pathological fracture in nature) Plan: Continue to offer pain meds, treat acute infection (2) Fall Impression: - Per the patient's , Flynn, she has been falling more often at home - Now with a pelvic fracture - Previous fall led to a chronic T4 compression fracture - Inability to ambulate - Fell while attempting to get to the bathroom - Is thought to not have loss of consciousness Plan: Up with the assist of staff, fall precautions, ortho surgery is following Qualifiers: Encounter type: subsequent encounter Qualified Code(s): W19.XXXD - Unspecified fall, subsequent encounter (3) Pelvic fracture Impression: - Pelvic CT shows a left pubic ramus fracture involving the superior, inferior, and body - Underlying rectal pain since having her bladder sling procedure - Pain is now better managed - IV dilaudid caused dizziness - Hydrocodone has been effective Plan: continue with pain control, activity with necessary trips to the bathroom Qualifiers: Encounter type: initial encounter Pelvic bone location: multiple parts Fracture type: closed Fracture alignment: with stable disruption of pelvic ring Qualified Code(s): S32.810A - Multiple fractures of pelvis with stable disruption of pelvic ring, initial encounter for closed fracture (4) Hyponatremia Impression: - Prior hospital stays with sodium levels in the 115 range - now sodium level is low at 132 - May be related to poor nutrition, or infection - Baseline dementia, difficult to cafe cook for new confusion Plan: Monitor labs, monitor for worsening AMS (5) UTI (urinary tract infection) Impression: - Increased dysuria per with burning, urgency and frequency for the past few weeks at home - WBC count up to 15.1 - UA + nitrites, culture is pending - Chronic nocturia - Status post Rocephin - Culture results show possible colonized pathogens - Now on Augmentin x7 days Plan: Continue to manage symptoms Qualifiers: Urinary tract infection type: acute cystitis (6) Dysuria Impression: - Increased symptoms over the past few weeks prior to this admission - Upon arrival to the nursing floor, patient continues to have urgency and frequency- now resolved Plan: Offer pure-wick, continue Pyridium, continue antibiotics (7) Protein-calorie malnutrition, moderate Impression: - states that for the past 8-10 months the patient has been drinking a few slim fast drinks as her main nutrition source - Anemia noted on labs - Appears cachectic - Total protein is low at 6.5, albumin is 2.5 - Weight loss has been gradual as per the patient's as he notes that she "only consumes about 500 calories per day" - Nutrition consult notes; "no problems chewing or swallowing. Patient prefers cold foods (HB eggs, iced tea, ice cream, fruit, cottage cheese...) reinforced need to eat some solids, will provide Hi becky/pro nutrition supplement at 4 oz to encourage solid food intake. can fill up easily on liquids...encourage small snacks, left fruit in fridge, does like ice cream" - No wt loss noted, UBW 2014 was 52 kg, 2016 52 kg, Mar 2018 54 kg now at 56 kg Plan: Encourage PO intake, kitchen will provide cold foods, high protein meals, supplemental shakes (8) Breast cancer Impression: - Status post lumpectomy and thyroidectomy ~ 11 years ago - No issues since that time, except spinal involvement with compression fractures - chronic back pain for at least the past 1 year due to compression fracture of T4 Plan: Continue to treat acute and chronic pain (9) Alzheimer's dementia Impression: - brain imaging (MRI) from November of 2017 show moderate white matter disease - Poor historian on exam as expected - can attest to his as having very poor short term memory loss - Awaiting SNF placement options Plan: Monitor for worsening AMS, provide continuity of cares with nursing staff Qualifiers: Alzheimer's disease onset: unspecified onset Dementia behavioral disturbance: without behavioral disturbance Qualified Code(s): G30.9 - Alzhe eleazar's disease, unspecified; F02.80 - Dementia in other diseases classified elsewhere without behavioral disturbance (10) Hypothyroidism Impression: - Was taking synthroid 75 mcg 6 days per week at home, continued here - TSH very elevated at 17.77 - Increased Synthroid dose from 75 to 88 mcg daily Plan: Check free T3 and T4 in the AM
[2018-07-14] MEDS: AMOX/CLAV 875 MG/125 MG TABLET PO SCH ×2 (12:28→21:16)
[2018-07-14] MEDS: MIRTAZAPINE 15 MG TABLET PO SCH (21:17)
[2018-07-15 05:44] LABS: BASOPHILS # (AUTO) 0.1 10^3/uL (0.0-0.1); BASOPHILS % (AUTO) 0.7 %; EOSINOPHILS # (AUTO) 0.1 10^3/uL (0.0-0.7); EOSINOPHILS % (AUTO) 0.7 %; HGB - HEMOGLOBIN 10.5 g/dL (12.0-16.0); LYMPHOCYTES # (AUTO) 2.3 10^3/uL (1.5-3.5); LYMPHOCYTES % (AUTO) 19.2 %; MEAN CORPUSCULAR HEMOGLOBIN 29.6 pg (27.0-31.0); MEAN CORPUSCULAR HGB CONC 33.6 g/dL (32.0-36.0); MEAN CORPUSCULAR VOLUME 88.1 fL (81.0-99.0); MEAN PLATELET VOLUME 6.8 fL (7.9-10.8); MONOCYTES # (AUTO) 0.8 10^3/uL (0.0-1.0); NEUTROPHILS # (AUTO) 8.6 10^3/uL (1.5-6.6); NEUTROPHILS % (AUTO) 72.4 %; PLT - PLATELET COUNT 456 10^3/uL (130-450); RED BLOOD COUNT 3.54 10^6/uL (4.20-5.40); RED CELL DISTRIBUTION WIDTH 17.2 % (12.0-15.0)
[2018-07-15 05:55] LABS: ALBUMIN 2.5 g/dL (3.2-5.5); ALBUMIN/GLOBULIN RATIO 0.7 (1.0-2.2); BILIRUBIN,TOTAL 0.5 mg/dL (0.2-1.0); CALCIUM 8.6 mg/dL (8.5-10.3); CREATININE 0.5 mg/dL (0.4-1.0); PHOSPHORUS 2.6 mg/dL (2.5-4.6); TOTAL PROTEIN 6.2 g/dL (6.7-8.2)
[2018-07-15] MEDS: LEVOTHYROXINE 88 MCG TABLET PO SCH (06:56)
[2018-07-15] MEDS ORDERED: LEVOTHYROXINE 75 MCG TABLET PO SCH ×3 (07:00)
[2018-07-15] MEDS: FAMOTIDINE 20 MG TABLET PO SCH ×2 (08:31→21:26)
[2018-07-15] MEDS: ENOXAPARIN 40 MG/0.4 ML SYRINGE SUBQ SCH (08:31)
[2018-07-15] MEDS: AMOX/CLAV 875 MG/125 MG TABLET PO SCH ×2 (08:31→21:26)
[2018-07-15] MEDS: POLYETHYLENE GLYCOL 3350 17 GM PACKET PO SCH (08:32)
[2018-07-15] MEDS: LIDOCAINE PATCH 5% TOP SCH (08:33)
[2018-07-15] MEDS ORDERED: DONEPEZIL 5 MG TABLET PO SCH (09:00)
[2018-07-15] MEDS ORDERED: clonazePAM 0.5 MG TABLET PO SCH (09:00)
--- NOTE | 2018-07-15 14:18 | PROVIDER PROGRESS NOTE ---
Subjective - Prog Note Date Prog Note Date: 07/15/18 Prog Note Time: 14:16 - Subjective Pt reports feeling: No change Subjective: Amada appears comfortable and is nibbling on her mauro this morning. Her , Flynn is at her bedside. He is in favor of pursuing Hospice care as this may provide the best pain management solution. Current Medications - Current Medications Current Medications: Active Medications: Acetaminophen (Tylenol) 650 mg PO Q4HR PRN Hydrocodone Bitart/Acetaminophen ([place] 5/325) 1 tab PO Q4HR PRN Amoxicillin/Clavulanate Potassium (Augmentin 875/125) 1 tab PO BID DREW Aspirin (Ecotrin) 650 mg PO Q4H PRN Enoxaparin Sodium (Lovenox) 40 mg SUBQ DAILY DREW Famotidine (Pepcid) 20 mg PO BID DREW Levothyroxine Sodium (Synthroid) 88 mcg PO QDAC DREW Lidocaine (Lidoderm Patch) 1 patch TOP DAILY DREW Mirtazapine (Remeron) 7.5 mg PO QPM DREW Phenazopyridine HCl (Pyridium) 200 mg PO BID PRN Polyethylene Glycol (Miralax) 17 gm PO DAILY DREW Tramadol HCl (Ultram) 50 mg PO DAILY PRN HOME meds: Levothyroxine [Synthroid] 75 mcg PO SUMOTUWETHFR@0700 05/28/14 Aspirin [Aspirin EC] 650 mg PO .Q4-6H PRN 07/13/18 Clonazepam 0.25 mg PO DAILY 07/13/18 Donepezil HCl [Aricept] 10 mg PO DAILY 07/13/18 Lidocaine [Lidoderm] 1 patch TOP DAILY 07/13/18 Phenazopyridine HCl [Pyridium] 200 mg PO BID PRN 07/13/18 traMADol [Ultram] 50 mg PO DAILY PRN 07/13/18 Objective - Vital Signs/Intake & Output Reviewed Vital Signs: Yes Vital Signs: Vital Signs x48h Temp Pulse Resp BP Pulse Ox 07/15/18 08:00 37.1 C 86 18 119/57 L 93 Intake & Output: Intake & Output 07/12/18 07/13/18 07/14/18 07/15/18 23:59 23:59 23:59 23:59 Intake Total 1500 2783.337 600 Output Total 300 300 Balance 1200 2483.337 600 - Objective General Appearance: positive: No acute distress, Lethargic Eyes Bilateral: positive: PERRL Eyes: OU Conjunctivae pale, OU Other (small pupils, equal) ENT: positive: Pharynx nml, Dry mucous membranes Neck: positive: Thyroid nml, No JVD, Trachea midline Respiratory: positive: Chest non-tender, No respiratory distress, Breath sounds nml Cardiovascular: positive: Regular rate & rhythm, No gallop Peripheral Pulses: 1+ Radial (R), 1+ Radial (L) Abdomen: positive: Non-tender, Nml bowel sounds Back: positive: Nml inspection Skin: positive: No rash, Warm, Dry, Pallor Extremities: positive: No pedal edema, Joint swelling Neurologic/Psychiatric: positive: Disoriented to place, Disoriented to time, Weakness, Sensory loss, Slurred/abnml speech (advanced dementia), Depressed mood/affect Reflexes: Bicep (R): 3+, Bicep (L): 3+ - Lab Results Fish Bones: 07/15/18 05:32 07/15/18 05:32 Other Labs: Lab Results x24hrs 07/15/18 07/15/18 07/15/18 Range/Units 05:32 05:32 05:32 WBC (4.8-10.8) x10^3/uL RBC (4.20-5.40) 10^6/uL Hgb (12.0-16.0) g/dL Hct (37.0-47.0) % MCV (81.0-99.0) fL MCH (27.0-31.0) pg MCHC (32.0-36.0) g/dL RDW (12.0-15.0) % Plt Count (130-450) 10^3/uL MPV (7.9-10.8) fL Neut # (Auto) (1.5-6.6) 10^3/uL Lymph # (Auto) (1.5-3.5) 10^3/uL [place] # (Auto) (0.0-1.0) 10^3/uL Eos # (Auto) (0.0-0.7) 10^3/uL Baso # (Auto) (0.0-0.1) 10^3/uL Absolute Nucleated RBC x10^3/uL Nucleated RBC % /100WBC Sodium 132 L (135-145) mmol/L Potassium 3.6 (3.5-5.0) mmol/L Chloride 98 L (101-111) mmol/L Carbon Dioxide 23 (21-32) mmol/L Anion Gap 11.0 (6-13) BUN 8 (6-20) mg/dL Creatinine 0.5 (0.4-1.0) mg/dL Estimated GFR (MDRD) 119 (>89) Glucose 108 H (70-100) mg/dL Calcium 8.6 (8.5-10.3) mg/dL Phosphorus 2.6 (2.5-4.6) mg/dL Magnesium 2.0 (1.7-2.8) mg/dL Total Bilirubin 0.5 (0.2-1.0) mg/dL AST 21 (10-42) IU/L ALT 18 (10-60) IU/L Alkaline Phosphatase 63 (42-121) IU/L Total Protein 6.2 L (6.7-8.2) g/dL Albumin 2.5 L (3.2-5.5) g/dL Globulin 3.7 (2.1-4.2) g/dL Albumin/Globulin Ratio 0.7 L (1.0-2.2) Free T4 1.02 (0.58-1.64) ng/dL Free T3 pg/mL 2.66 (2.5-3.9) pg/mL 07/15/18 Range/Units 05:32 WBC 12.0 H (4.8-10.8) x10^3/uL RBC 3.54 L (4.20-5.40) 10^6/uL Hgb 10.5 L (12.0-16.0) g/dL Hct 31.2 L (37.0-47.0) % MCV 88.1 (81.0-99.0) fL MCH 29.6 (27.0-31.0) pg MCHC 33.6 (32.0-36.0) g/dL RDW 17.2 H (12.0-15.0) % Plt Count 456 H (130-450) 10^3/uL MPV 6.8 L (7.9-10.8) fL Neut # (Auto) 8.6 H (1.5-6.6) 10^3/uL Lymph # (Auto) 2.3 (1.5-3.5) 10^3/uL [place] # (Auto) 0.8 (0.0-1.0) 10^3/uL Eos # (Auto) 0.1 (0.0-0.7) 10^3/uL Baso # (Auto) 0.1 (0.0-0.1) 10^3/uL Absolute Nucleated RBC 0.01 x10^3/uL Nucleated RBC % 0.1 /100WBC Sodium (135-145) mmol/L Potassium (3.5-5.0) mmol/L Chloride (101-111) mmol/L Carbon Dioxide (21-32) mmol/L Anion Gap (6-13) BUN (6-20) mg/dL Creatinine (0.4-1.0) mg/dL Estimated GFR (MDRD) (>89) Glucose (70-100) mg/dL Calcium (8.5-10.3) mg/dL Phosphorus (2.5-4.6) mg/dL Magnesium (1.7-2.8) mg/dL Total Bilirubin (0.2-1.0) mg/dL AST (10-42) IU/L ALT (10-60) IU/L Alkaline Phosphatase (42-121) IU/L Total Protein (6.7-8.2) g/dL Albumin (3.2-5.5) g/dL Globulin (2.1-4.2) g/dL Albumin/Globulin Ratio (1.0-2.2) Free T4 (0.58-1.64) ng/dL Free T3 pg/mL (2.5-3.9) pg/mL ABX Reporting Has patient been on IV antibiotics over the past 48 hours?: No Assessment/Plan - Problem List (1) Intractable pain Impression: - Patient complains of left hip, leg, and groin pain that is more controlled today - Has been able to ambulate since her injury, pelvic fracture with staff and doing fair in PT sessions - Prescribed tramadol at home, lidocaine patches for her known T4 compression fracture and continued here - Continue Hydrocodone as needed - Differential dx may be spinal/bone metastatic disease from her history of breast cancer - Met with radiology provider who does not believe her recent fracture or compression fracture of T4 show a probability of bone mets (not pathological fracture in nature) - Offered both the patient and her the option of Hospice as this will improve quality of life and may lead to improved pain control - Ordered a Hospice consult, social work is arranging - Patient will need a hospital bed prior to discharge Plan: Continue to offer pain meds, treat acute infection, await Hospice consult (2) Fall Impression: - Per the patient's , Flynn, she has been falling more often at home - Now with a pelvic fracture - Previous fall led to a chronic T4 compression fracture - Now ambulating with staff to the bathroom only - Fell while attempting to get to the bathroom - Is thought to not have loss of consciousness Plan: Up with the assist of staff, fall precautions, bed alarm, ortho surgery is following Qualifiers: Encounter type: subsequent encounter Qualified Code(s): W19.XXXD - Unspecified fall, subsequent encounter (3) Pelvic fracture Impression: - Pelvic CT shows a left pubic ramus fracture involving the superior, inferior, and body - Underlying rectal pain since having her bladder sling procedure - Pain is now better managed - IV dilaudid caused dizziness- so discontinued - Hydrocodone has been effective Plan: continue with pain control, activity with necessary trips to the bathroom Qualifiers: Encounter type: initial encounter Pelvic bone location: multiple parts Fracture type: closed Fracture alignment: with stable disruption of pelvic ring Qualified Code(s): S32.810A - Multiple fractures of pelvis with stable disruption of pelvic ring, initial encounter for closed fracture (4) Hyponatremia Impression: - Prior hospital stays with sodium levels in the 115 range - now sodium level is low at 132 - May be related to poor nutrition, or infection - Baseline dementia, difficult to electronic equipment maint tech for new confusion - Per patient's , now with more lethargy and confusion - Slight sun-downing noted in the evening Plan: Monitor labs, monitor for worsening AMS (5) UTI (urinary tract infection) Impression: - Increased dysuria per with burning, urgency and frequency for the past few weeks at home - WBC count down to 12.0 today - UA + nitrites, culture show likely colonization, no identifiable pathogen - Chronic nocturia - Status post Rocephin - Culture results show possible colonized pathogens - Now on Augmentin x7 days Plan: Continue to manage symptoms Qualifiers: Urinary tract infection type: acute cystitis (6) Protein-calorie malnutrition, moderate Impression: - states that for the past 8-10 months the patient has been drinking a few slim fast drinks as her main nutrition source - Anemia noted on labs - Appears cachectic - Total protein is low at 6.5, albumin is 2.5 - Weight loss has been gradual as per the patient's as he notes that she "only consumes about 500 calories per day" - Nutrition consult notes; "no problems chewing or swallowing. Patient prefers cold foods (HB eggs, iced tea, ice cream, fruit, cottage cheese...) reinforced need to eat some solids, will provide Hi becky/pro nutrition supplement at 4 oz to encourage solid food intake. can fill up easily on liquids...encourage small snacks, left fruit in fridge, does like ice cream" - No wt loss noted, UBW 2014 was 52 kg, 2016 52 kg, Mar 2018 54 kg now at 56 kg - On exam, the patient was snacking on mauro Plan: Encourage PO intake, kitchen will provide cold foods, high protein meals, supplemental shakes (7) Breast cancer Impression: - Status post lumpectomy and thyroidectomy ~ 11 years ago - No issues since that time, except spinal involvement with compression fractures - chronic back pain for at least the past 1 year due to compression fracture of T4 Plan: Continue to treat acute and chronic pain (8) Alzheimer's dementia Impression: - brain imaging (MRI) from November of 2017 show moderate white matter disease - Poor historian on exam as expected - can attest to his as having very poor short term memory loss - Awaiting SNF placement options - Aricept stopped today for complaints of increased lethargy and increased sundowning Plan: Monitor for worsening AMS, provide continuity of cares with nursing staff Qualifiers: Alzheimer's disease onset: unspecified onset Dementia behavioral disturbance: without behavioral disturbance Qualified Code(s): G30.9 - Alzheimer's disease, unspecified; F02.80 - Dementia in other diseases classified elsewhere without behavioral disturbance (9) Hypothyroidism Impression: - Was taking synthroid 75 mcg 6 days per week at home - TSH very elevated at 17.77 - Increased Synthroid dose from 75 to 88 mcg daily - Free T3 and T4 both normal today Plan: Continue higher dose of Synthroid, recommend re-checking TSH in ~4-5 weeks
[2018-07-15] MEDS: HYDROcod/ACETAM 5/325 MG TABLET PO PRN (17:06)
[2018-07-15] MEDS: MIRTAZAPINE 15 MG TABLET PO SCH (21:26)
--- NOTE | 2018-07-16 01:35 | Ultrasound Report ---
Reason: increased rectal pain Procedure Date: 07/16/2018 Accession Number: [id number] / [id number] Procedure: US - Transvaginal CPT Code: FULL RESULT: EXAM: PELVIC ULTRASOUND EXAM DATE: 07/16/2018 01:00 AM. CLINICAL HISTORY: Increasing pelvic/rectal pain. COMPARISON: PELVIS W/O 07/13/2018 1:01 PM. TECHNIQUE: Realtime transabdominal pelvic scan performed to identify the uterus and adnexa and as an overview of other pelvic structures, followed by transvaginal scan to provide greater detail of the uterus and adnexa, with static image documentation. FINDINGS: LMP: Uncertain. Uterus: The myometrium is diffusely heterogeneous. Uterus measures 8.6 x 4.9 x 3.8 cm. There is a heterogeneously hypoechoic abnormality within the posterior uterine body region, with an apparent communication with the bowel posteriorly (image #11). There is vascularity within the posterior myometrium. Endometrium: Endometrium is difficult to visualize with certainty. As visualized it measures 8.1 mm in thickness. Cervix: Trace amount of fluid in the cervix. Right Ovary: Not identified with certainty. Left Ovary: Not identified with certainty. Fluid: No celiac and pelvic free fluid. Other: No other significant findings. IMPRESSION: 1. Ovaries could not be visualized with certainty. No suspicious adnexal mass noted. 2. Heterogeneous abnormality within the posterior myometrium with an apparent fistulous communication with the distal sigmoid/rectum. This abnormality within the myometrium measures 4.5 x 3.1 x 3.1 cm. RADIA
[2018-07-16] MEDS: LEVOTHYROXINE 88 MCG TABLET PO SCH (06:25)
[2018-07-16] MEDS: HYDROcod/ACETAM 5/325 MG TABLET PO PRN (09:20)
[2018-07-16] MEDS: FAMOTIDINE 20 MG TABLET PO SCH ×2 (09:20→21:05)
[2018-07-16] MEDS: POLYETHYLENE GLYCOL 3350 17 GM PACKET PO SCH ×2 (09:20→11:56)
[2018-07-16] MEDS: LIDOCAINE PATCH 5% TOP SCH (09:20)
[2018-07-16] MEDS: AMOX/CLAV 875 MG/125 MG TABLET PO SCH ×2 (09:20→21:05)
[2018-07-16] MEDS: ENOXAPARIN 40 MG/0.4 ML SYRINGE SUBQ SCH (09:21)
[2018-07-16] MEDS ORDERED: SODIUM CHLORIDE FLUSH 0.9% 10 ML SYRINGE ONE (11:02)
[2018-07-16] MEDS ORDERED: CALAMINE/ZINC OXIDE 118 ML BOTTLE TOP PRN (11:19)
[2018-07-16] MEDS: traMADol 50 MG TABLET PO PRN (11:56)
[2018-07-16] MEDS ORDERED: IOVERSOL 320 50 ML VIAL ONE (12:08)
[2018-07-16] MEDS ORDERED: IOVERSOL 320 100 ML VIAL IVP ONE ×2 (12:08→13:46)
[2018-07-16] MEDS ORDERED: MORPHINE SOL 10 MG/0.5 ML SYRINGE PO PRN (13:21)
[2018-07-16] MEDS ORDERED: IOVERSOL 320 50 ML VIAL PO ONE (13:46)
--- NOTE | 2018-07-16 15:00 | CT Report ---
Reason: rectal pain, gas in uterus Procedure Date: 07/16/2018 Accession Number: [id number] / [id number] Procedure: CT - Abdomen/Pelvis W CPT Code: FULL RESULT: EXAM: CT ABDOMEN AND PELVIS EXAM DATE: 07/16/2018 01:45 PM. CLINICAL HISTORY: Rectal pain. COMPARISONS: ABDOMEN/PELVIS W/ 05/04/2016 3:01 PM PELVIS W/O 07/13/2018 1:01 PM TRANSVAGINAL 07/16/2018 12:04 AM. TECHNIQUE: Routine helical CT imaging was performed through the abdomen and pelvis. IV contrast: 80 cc Optiray 320. Enteric contrast: Yes. Reconstructions: Coronal and sagittal. In accordance with CT protocol optimization, one or more of the following dose reduction techniques were utilized for this exam: automated exposure control, adjustment of mA and/or KV based on patient size, or use of iterative reconstructive technique. FINDINGS: Lung Bases: Unremarkable. Liver: The liver demonstrates a few scattered tiny subcentimeter low-density foci, technically too small to further characterize and indeterminant but probable tiny cysts. Gallbladder/Bile Ducts: Unremarkable. Spleen: Normal. Pancreas: Normal. Adrenal Glands: Normal. Kidneys: Normal. No masses or hydronephrosis. Peritoneal Cavity/Bowel: Bowel loops demonstrate abnormal appearance of the mid to distal sigmoid colon demonstrating wall thickening and mild fat stranding. Underlying diverticular disease is seen. Adjacent to the mid sigmoid colon and posterior left uterus is a loculated 2.8 x 3.4 x 3.2 cm gas and fluid collection likely representing abscess at the junction of the uterine serosa and sigmoid colon. No additional fluid collections are identified. There is no free air. Pelvic Organs: Normal. The bladder and visualized pelvic organs are within normal limits. Vasculature: No aneurysms or other significant abnormality. Bones: No significant abnormality. Other: None. IMPRESSION: 1. Wall thickening and fat stranding involving the mid to distal sigmoid colon consistent with colitis, likely diverticulitis. 2. Loculated 2.8 x 3.4 x 3.2 cm fluid collection at the serosal interface of the uterus and anterior wall of the mid sigmoid colon consistent with abscess. No free air or free fluid. 3. Consider posttreatment colonoscopy to exclude malignancy. RADIA
--- NOTE | 2018-07-16 16:31 | CONSULTATION NOTE ---
Referring Provider Name of Referring Provider:: Alfonso Bowie JOSHUA Consult Date: 07/16/18 Chief Complaint - Chief Complaint Chief Complaint: rectal pain, abd pelvic US History of Present Illness - Admitted From Admitted From:: ER - History Obtained From Records Reviewed: yes History obtained from: pt, , records Exam Limitations: pt has dementia and memory dysfunction - History of Present Illness HPI Comment/Other: 78 yo female admitted to [facility] on 07/13/18 following a ground level fall where she was diagnosed with a stable pelvic fracture and admitted for pain control and rehabilitation. She has a hx of chronic rectal pain that may have started after a bladder sling procedure performed in [address] Hoffmann. Evaluation by Dr. Rich in 2017 included diagnosis of internal hemorrhoids which were banded without improvement in sx, EUA with rectal biopsy which was negative and colonoscopy showing mild diverticulosis and hemorrhoids. She c/o chronic dysuria and because of an abnormal U/A on admission was empirically started on antibiotic therapy with rocephin pending a urine C&S which subsequently was interpreted as showing contamination rather than infection. She was noted to have a leukocytosis on admission with a WBC count of 15K. She was switched to oral Augmentin on 07/14/18. She denies abd pain, N/V, change in bowel habits, melena, hematochezia, constipation, or recent wt loss. She has lost wt over the past several years, but has been stable recently per her . Her diet consists of nutritional supplements as she shows no interest in solid food. Neg FH GI tumors. No vaginal d/c or bleeding. No fever/chills. Because of the ongoi ng rectal pain which is described as chronic and improved with recumbency and exacerbated with bm's she underwent evaluation with a pelvic US today which was interpreted as showing an abnormal uterus with a possible fistula from the uterus to the colon or rectum. An abd/pelvic CT scan was then obtained, which showed a 3.7 cm air and fluid collection between the uterus and the sigmoid colon and thickening of the sigmoid colon with tics c/w diverticulitis and a diverticular abscess. Surgical consultation was requested. 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 (bladder sling surgery) : reports: Incontinence, Nocturia, Frequency HEENT: reports: Chronic vision loss Psych: reports: Depression, Anxiety, Claustrophobia, Other (dementia) Musculoskeletal: reports: Osteoporosis (Multiple joint pain-chronic), Fatigue, Chronic back pain Derm: reports: None MRSA Hx?: No - Past Surgical History General: reports: Other (hemorrhoid banding, anorectal exam under anesthesia for rectal pain 2016) /BUFFER OPERATOR: reports: Other (bladder sling surgery; status post breast CA in 2007, lumpectomy, no chemo, last mammogram 2014-negative, no node involvement.) HEENT: reports: Tonsil/Adenoidectomy, Other (total thyroidectomy in 2004, 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 Father: no chronic illnesses, now . Brother: alive and well, history of CAD. Neg for GI tumors Living arrangement: At home Living Situation: With spouse/s.o. Social History Notes: The patient is to her , Flynn who is a retired orthopedic surgeon and resides at home with him as her sole care provider. 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 They have 3 grown daughters that the [place] see [place] The patient denies tobacco or alcohol use. Her admits to recent trials of CBD, and THC oil s to treat her back pain. She wishes to be a DNR. - Substance History Use: Uses substance without health or social issues: NONE Abuse: Recurrent use of substance despite neg consequences: NONE Dependence: Experiences withdrawal or developed tolerances: NONE - POLST Patient has POLST: No POLST Status: DNR Meds/Allgy - Home Medications Home Medications: Ambulatory Orders Medication Instructions Recorded Confirmed Levothyroxine [Synthroid] 75 mcg PO SUMOTUWETHFR@0700 05/28/14 07/13/18 Aspirin [Aspirin EC] 650 mg PO .Q4-6H PRN 07/13/18 07/13/18 Clonazepam 0.25 mg PO DAILY 07/13/18 07/13/18 Donepezil HCl [Aricept] 10 mg PO DAILY 07/13/18 07/13/18 Lidocaine [Lidoderm] 1 patch TOP DAILY 07/13/18 07/13/18 Phenazopyridine HCl [Pyridium] 200 mg PO BID PRN 07/13/18 07/13/18 traMADol [Ultram] 50 mg PO DAILY PRN 07/13/18 07/13/18 - Allergies Allergies/Adverse Reactions: Allergies Allergy/AdvReac Type Severity Reaction Status Date / Time nitrofurantoin Allergy Severe Hives Verified 07/13/18 10:34 macrocrystalline * [From Macrodantin] Sulfa (Sulfonamide Allergy Severe Hives Verified 07/13/18 10:34 Antibiotics) Review of Systems - Constitutional Constitutional: reports: Poor appetite. denies: Fever, Chills, Weight loss - Gastrointestinal Gastrointestinal: reports: Poor appetite, Other (chronic rectal pain). denies: Abdominal pain, Abdominal distention, Constipation, Diarrhea, Change in bowel habits, Rectal bleeding, Black stools, Bloody stools, Nausea, Vomiting, Bile em esis, Arnold blood emesis, Coffee grounds emesis, Reflux/heartburn, Bloating - Genitourinary Genitourinary: reports: Dysuria, Frequency, Nocturia - Musculoskeletal Musculoskeletal: reports: Back pain, Joint pain - Hematologic/Lymphatic Hematologic/Lymphatic: denies: Bruising, Blood clots, Bleeding tendencies - All Other Systems All Other Systems: reports: Reviewed and negative Exam - Vital Signs Reviewed Vital Signs: Yes Vital Signs: Vital Signs x48h Temp Pulse Resp BP Pulse Ox 07/16/18 16:03 36.8 C 80 18 138/70 H 94 - Physical Exam General Appearance: positive: No acute distress, Alert Eyes Bilateral: positive: Conjunctivae nml, No scleral icterus ENT: positive: ENT inspection nml, Pharynx nml, No signs of dehydration Neck: positive: Nml inspection, No JVD. negative: Thyromegaly, Lymphadenopathy (R), Lymphadenopathy (L) Respiratory: positive: Chest non-tender, No respiratory distress, Breath sounds nml. negative: Wheezes, Rales, Rhonchi Cardiovascular: positive: Regular rate & rhythm, No murmur, No gallop Abdomen: positive: Non-tender, No organomegaly, Nml bowel sounds, No distention. negative: Guarding, Rebound, Hepatomegaly, Splenomegaly, Mass Rectal: positive: Tenderness (diffuse at anal canal; no rectal masses or focal tenderness). negative: Black stool, Bloody stool, Mass, Nodule Skin: positive: Color nml, No rash, Warm, Dry Extremities: negative: Calf tenderness Conclusion/Plan - Diagnosis Diagnosis: 1.Abnormal CT abd/pelvis with findings most consistent with a diverticular abscess; no sign of acute abdomen or other signs of an intraabdominal infection clinically at present. Recent favorable colonoscopy suggests colon cancer not likely to be present. 2. 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 W/u in 2017 was negative. - Plan Plan: 1.Since patient is clinically doing well with oral antibiotics now, I agree with plans to continue present therapy as an outpatient and arrange a f/u CT scan in approx 1 week to reassess status of the abscess. It if fails to resolve, percutaneous drainage can be considered. Discussed with pt's and Alfonso Azeb, who agree. I will be happy to follow her as an outpatient for this condition. 2. Symptomatic treatment of her chronic proctalgia (can try massage, physical therapy, sitz baths). Thanks, - Lab Results Lab results reviewed: Yes Fish Bones: 07/15/18 05:32 07/15/18 05:32 - Diagnostic Imaging Results Diagnostic Imaging Results: positive: Final report reviewed, Read independently Diagnostic Imaging Results Comments: See HPI
[2018-07-16] MEDS: MORPHINE SOL 10 MG/0.5 ML SYRINGE PO PRN ×2 (16:52→19:02)
--- NOTE | 2018-07-16 19:14 | PROVIDER PROGRESS NOTE ---
Subjective - Prog Note Date Prog Note Date: 07/16/18 Prog Note Time: 08:00 - Subjective Pt reports feeling: Worse Subjective: Amada continues to complain of rectal pain and this is uncontrolled today. She states that this is more constant and it is greater than her acute pelvic fractures. She denies chest pain, a new rash, a new cough, or increased anxiety. Current Medications - Current Medications Current Medications: Active Medications: Acetaminophen (Tylenol) 650 mg PO Q4HR PRN Hydrocodone Bitart/Acetaminophen ([place] 5/325) 1 tab PO Q4HR PRN Amoxicillin/Clavulanate Potassium (Augmentin 875/125) 1 tab PO BID DREW Aspirin (Ecotrin) 650 mg PO Q4H PRN Calamine (Calamine) 1 applic TOP PRN PRN Enoxaparin Sodium (Lovenox) 40 mg SUBQ DAILY DREW Famotidine (Pepcid) 20 mg PO BID DREW Levothyroxine Sodium (Synthroid) 88 mcg PO QDAC DREW Lidocaine (Lidoderm Patch) 1 patch TOP DAILY DREW Mirtazapine (Remeron) 7.5 mg PO QPM DREW Morphine Sulfate (Roxanol) 10 mg PO Q2HR PRN Phenazopyridine HCl (Pyridium) 200 mg PO BID PRN Polyethylene Glycol (Miralax) 17 gm PO DAILY DREW Tramadol HCl (Ultram) 50 mg PO DAILY PRN HOME meds: Levothyroxine [Synthroid] 75 mcg PO SUMOTUWETHFR@0700 05/28/14 Aspirin [Aspirin EC] 650 mg PO .Q4-6H PRN 07/13/18 Clonazepam 0.25 mg PO DAILY 07/13/18 Donepezil HCl [Aricept] 10 mg PO DAILY 07/13/18 Lidocaine [Lidoderm] 1 patch TOP DAILY 07/13/18 Phenazopyridine HCl [Pyridium] 200 mg PO BID PRN 07/13/18 traMADol [Ultram] 50 mg PO DAILY PRN 07/13/18 Objective - Vital Signs/Intake & Output Reviewed Vital Signs: Yes Vital Signs: Vital Signs x48h Temp Pulse Resp BP Pulse Ox 07/16/18 19:00 86 18 97 07/16/18 16:03 36.8 C 80 18 138/70 H 94 Intake & Output: Intake & Output 07/13/18 07/14/18 07/15/18 06/09/19 23:59 23:59 23:59 23:59 Intake Total 1500 2783.337 1200 290 Output Total 300 300 1 Balance 1200 2483.337 1200 289 - Objective General Appearance: positive: No acute distress, Alert Eyes Bilateral: positive: PERRL ENT: positive: Pharynx nml, Dry mucous membranes Neck: positive: Thyroid nml, No JVD, Trachea midline, Stiff neck Respiratory: positive: Chest non-tender, No respiratory distress, Other (diminished, bilaterally) Cardiovascular: positive: Regular rate & rhythm, No gallop, Systolic murmur Peripheral Pulses: 1+ Radial (R), 1+ Radial (L) Abdomen: positive: Tenderness, Guarding Back: positive: Nml inspection Skin: positive: No rash, Warm, Dry, Pallor Extremities: positive: Non-tender, No pedal edema Neurologic/Psychiatric: positive: CN's nml (2-12), Motor nml, Disoriented to place, Disoriented to time, Weakness, Depressed mood/affect, Other (dementia) Reflexes: Bicep (R): 3+, Bicep (L): 3+ - Lab Results Fish Bones: 07/17/18 05:15 07/17/18 05:15 ABX Reporting Has patient been on IV antibiotics over the past 48 hours?: No Assessment/Plan - Problem List (1) Intestinal diverticular abscess Impression: - Requested a general surgical consult for ongoing rectal pain that is supers eding her acute fracture - Called radiology to clarify her abnormal vaginal US which was indicated to evaluate the etiology of her worsened rectal pain - This US report was grossly abnormal showing air in the uterus, of which the radiologist recommended further investigation - Started on Augmentin on 07/14/2018 for a presumed UTI, but the sample appears colonized - Abdominal/pelvis CT with contrast was completed which showed a sigmoid colon diverticular abscess - General surgery- Dr. Redd Lutz did a full digital rectal exam to rule out tumors, or other abnormalities, no external hemorrhoids were appreciated Plan: Recommend to continue Augmentin to treat this abscess (2) Intractable pain Impression: - Pain has now in her rectum as her primary complaint, despite her recent pelvic fracture and her chronic T4 compression fracture - No abnormalities on physical exam as per general surgery for rectal exam - Morphine increased to 10 mg Q2H, as needed - Has been able to ambulate since her injury, pelvic fracture with staff for bathroom needs - Prescribed tramadol at home, lidocaine patches for her known T4 compression fracture and continued here - Continue Hydrocodone as needed, now added moderate dose liquid morphine - Differential dx may be spinal/bone metastatic disease from her history of breast cancer - Met with radiology provider who does not believe her recent fracture or compression fracture of T4 show a probability of bone mets (not pathological fracture in nature) - Offered both the patient and her the option of Hospice as this will improve quality of life and may lead to improved pain control - Ordered a Hospice consult, social work is arranging - Patient will need a hospital bed prior to discharge Plan: Continue to offer pain meds, treat acute infection, await Hospice consult, and depending on the amount of liquid morphine, may benefit from a pain patch (3) Pelvic fracture Impression: - Pelvic CT shows a left pubic ramus fracture involving the superior, inferior, and body - Underlying rectal pain since having her bladder sling procedure- seems to be primary over this acute injury - Pain control is still inadequate - IV dilaudid caused dizziness- so discontinued - Hydrocodone has NOT been effective - Increased liquid morphine dose with minimal improvement - Await Hospice consult in the AM - Ortho is following- Dr. Sprague, not a surgical candidate Plan: continue with pain control, activity with necessary trips to the bathroom Qualifiers: Encounter type: initial encounter Pelvic bone location: multiple parts Fracture type: closed Fracture alignment: with stable disruption of pelvic ring Qualified Code(s): S32.810A - Multiple fractures of pelvis with stable disruption of pelvic ring, initial encounter for closed fracture (4) Fall Impression: - Per the patient's , Flynn, she has been falling more often at home - Now with a pelvic fracture, not thought to be pathologic in nature as per - Previous fall led to a chronic T4 compression fracture - Now ambulating with staff to the bathroom only - Fell while attempting to get to the bathroom - Is thought to not have loss of consciousness Plan: Up with the assist of staff, fall precautions, bed alarm, ortho surgery is following Qualifiers: Encounter type: subsequent encounter Qualified Code(s): W19.XXXD - Unspecified fall, subsequent encounter (5) Hyponatremia Impression: - Prior hospital stays with sodium levels in the 115 range - now sodium level is low at 132 - May be related to poor nutrition, or infection - Baseline dementia, difficult to toll relief operator for new confusion - Per patient's , now with more lethargy and confusion - Slight sun-downing noted in the evening, which is ongoing - Attempts to get out of bed at times despite having her acute pelvic fracture Plan: Monitor labs, monitor for worsening AMS (6) UTI (urinary tract infection) Impression: - Increased dysuria per with burning, urgency and frequency for the past few weeks at home - WBC count down to 12.0 yesterday - UA + nitrites, culture show likely colonization, no identifiable pathogen - Chronic nocturia - Status post Rocephin - Culture results show possible colonized pathogens - Continues on Augmentin for an undetermined time in light of newly discovered diverticular abscess Plan: Continue to manage symptoms Qualifiers: Urinary tract infection type: acute cystitis (7) Protein-calorie malnutrition, moderate Impression: - states that for the past 8-10 months the patient has been drinking a few slim fast drinks as her main nutrition source - Anemia noted on labs - Appears cachectic, ill appearing, pale, and with facial swelling - Total protein is low at 6.5, albumin is 2.5 - Weight loss has been gradual as per the patient's as he notes that she "only consumes about 500 calories per day" - Nutrition consult notes; "no problems chewing or swallowing. Patient prefers cold foods (HB eggs, iced tea, ice cream, fruit, cottage cheese...) reinforced need to eat some solids, will provide Hi becky/pro nutrition supplement at 4 oz to encourage solid food intake. can fill up easily on liquids...encourage small snacks, left fruit in fridge, does like ice cream" - No wt loss noted, UBW 2014 was 52 kg, 2016 52 kg, Mar 2018 54 kg now at 56 kg - On exam, the patient is only consuming 0-25% of each meal - Pain control is inadequate - Remeron started to increase appetite at low dose of 7.5 mg - Hospice consult for the AM Plan: Encourage PO intake, kitchen will provide cold foods, high protein meals, supplemental shakes, continue low dose Remeron (8) Breast cancer Impression: - Status post lumpectomy and thyroidectomy ~ 11 years ago - No issues since that time, except spinal involvement with compression fractures - chronic back pain for at least the past 1 year due to compression fracture of T4 - Concern for metastatic disease, but none found at this point to explain her ongoing pain issues and overall general decline Plan: Continue to treat acute and chronic pain (9) Alzheimer's dementia Impression: - brain imaging (MRI) from November of 2017 show moderate white matter disease - Poor historian on exam as expected - can attest to his as having very poor short term memory loss - Awaiting Hospice consult in the AM - no longer interested in Rehab as he wishes for quality of life, pain control and to make the most of each day - Aricept stopped for complaints of increased lethargy and increased sundowning - Aricept may also be a culprit of her ongoing poor appetite - Still mostly continent of bowel and bladder - No combative behaviors, but impulsive with lack of safety awareness Plan: Monitor for worsening AMS, provide continuity of cares with nursing staff Qualifiers: Alzheimer's disease onset: unspecified onset Dementia behavioral disturbance: without behavioral disturbance Qualified Code(s): G30.9 - Alzheimer's disease, unspecified; F02.80 - Dementia in other diseases classified elsewhere without behavioral disturbance (10) Hypothyroidism Impression: - Was taking synthroid 75 mcg 6 days per week at home - TSH very elevated at 17.77 - Increased Synthroid dose from 75 to 88 mcg daily - Free T3 and T4 both normal - May explain lack of appetite, and/or overall decline Plan: Continue higher dose of Synthroid, recommend re-checking TSH in ~4-5 weeks (11) Grade I diastolic dysfunction Impression: - Echo report from this hospital stay shows a grade I DD - EF normal at 60% - No valve abnormalities Plan: Use BB as a first line anti-hypertensive at a later date if needed, repeat echo ~ 1 year or if symptoms (12) Anemia Impression: - Baseline H/H is ~ 14.8/43.9 - Now down to 10.5/31.2 - Normal MCV - Poor energy reserve - Pale, ill appearing cachetic female - Likely iron deficiency verses chronic illness anemia Plan: Check iron studies, monitor labs Qualifiers: Anemia type: unspecified type Qualified Code(s): D64.9 - Anemia, unspecified
[2018-07-16] MEDS: MIRTAZAPINE 15 MG TABLET PO SCH (21:05)
[2018-07-17] MEDS ORDERED: SODIUM CHLORIDE FLUSH 0.9% 10 ML SYRINGE ONE (01:23)
[2018-07-17 05:48] LABS: BASOPHILS % (AUTO) 0.4 %; EOSINOPHILS # (AUTO) 0.1 10^3/uL (0.0-0.7); EOSINOPHILS % (AUTO) 1.1 %; HGB - HEMOGLOBIN 10.4 g/dL (12.0-16.0); LYMPHOCYTES # (AUTO) 2.6 10^3/uL (1.5-3.5); LYMPHOCYTES % (AUTO) 20.6 %; MEAN CORPUSCULAR HEMOGLOBIN 29.1 pg (27.0-31.0); MEAN CORPUSCULAR HGB CONC 32.7 g/dL (32.0-36.0); MEAN PLATELET VOLUME 6.9 fL (7.9-10.8); MONOCYTES # (AUTO) 0.7 10^3/uL (0.0-1.0); MONOCYTES % (AUTO) 5.6 %; NEUTROPHILS # (AUTO) 9.3 10^3/uL (1.5-6.6); NEUTROPHILS % (AUTO) 72.3 %; PLT - PLATELET COUNT 426 10^3/uL (130-450); RED BLOOD COUNT 3.58 10^6/uL (4.20-5.40); RED CELL DISTRIBUTION WIDTH 17.5 % (12.0-15.0); WHITE BLOOD COUNT 12.9 x10^3/uL (4.8-10.8)
[2018-07-17 05:57] LABS: CALCIUM 8.6 mg/dL (8.5-10.3); CREATININE 0.7 mg/dL (0.4-1.0); MAGNESIUM 2.2 mg/dL (1.7-2.8)
[2018-07-17] MEDS: LEVOTHYROXINE 88 MCG TABLET PO SCH (06:50)
[2018-07-17] MEDS: AMOX/CLAV 875 MG/125 MG TABLET PO SCH ×2 (10:00→15:34)
[2018-07-17] MEDS: ENOXAPARIN 40 MG/0.4 ML SYRINGE SUBQ SCH (10:00)
[2018-07-17] MEDS: FAMOTIDINE 20 MG TABLET PO SCH (10:00)
[2018-07-17] MEDS: LIDOCAINE PATCH 5% TOP SCH (10:01)
[2018-07-17] MEDS: POLYETHYLENE GLYCOL 3350 17 GM PACKET PO SCH (10:02)
[2018-07-17] MEDS ORDERED: DIPHENOX/ATROPINE 2.5/0.025 MG TABLET PO PRN (10:54)
[2018-07-17 11:36] VITALS: BP 114/64
[2018-07-17] MEDS: MORPHINE SOL 10 MG/0.5 ML SYRINGE PO PRN ×2 (11:46→15:00)
--- NOTE | 2018-07-17 12:01 | Discharge Plan ---
Discharge Plan Disposition: Home Health Service Condition: Stable Prescriptions: Amox/Clav 875/125 [Augmentin 875/125] 1 tab PO BID #20 tablet Levothyroxine [Synthroid] 88 mcg PO QDAC #30 tablet Mirtazapine [Remeron] 7.5 mg PO HS #30 tablet Morphine Sulfate [Morphine Sulf Oral (Roxanol)] 10 mg PO Q1H PRN #30 ml PRN Reason: Pain/Dyspnea Wheat Dextrin [Benefiber] 1 packet PO DAILY #30 packet Diet: Regular Activity Restrictions: Wt Bearing as Tolerated Shower Restrictions: No Assistance Devices: Wheelchair, Walker Additional Instructions or Follow Up instructions: You were admitted after falling and were found to have a pelvic fracture. Initially, it was thought that a rehab center verses home rehab would be the most beneficial in your recovery. A Hospice consult was made due to your gradual decline in health and lack of adequate pain control. After a few days, your regular rectal pain seemed to be your main complaint, which you described as "hemorrhoid pain". A transvaginal ultrasound was obtained, which was very abnormal and after speaking to a radiologist, further investigation was warranted. A general surgery consult with Dr. Redd Lutz was made to determine the best course of action regarding the newly discovered diverticular abscess. Please see general surgery outpatient in the next week to ensure a resolution of the abscess and to determine if any more interventions are needed. Arrange a follow up CT scan in about 1 week to reassess status of the abscess. If the infection fails to resolve, percutaneous drainage can be considered. The most likely cause of your rectal discomfort is from a condition called proctalgia. Symptomatic treatments can include; massage, physical therapy, sitz baths or even acupuncture. Please request that your PCP orders home physical therapy, occupational therapy. I have ordered this, but your PCP may have to confirm it. I have also spoken to Kaela Willams, Palliative care so that she can start on pain control at home, possibly with Methadone. Your PCP will need to order this as well. Follow-Up Care: Home Health - PT, Home Health - OT No Smoking: If you smoke, Please STOP! Call for help. Follow-up with: Brooklynn Conklin MD [Primary Care Provider] -
--- NOTE | 2018-07-17 12:03 | DISCHARGE SUMMARY ---
Discharge Summary Admit Date: 07/13/18 Discharge Date: 07/17/18 Discharging Provider: JOSHUA Panchal Primary Care Provider: Brooklynn Conklin Code Status: Do Not Attempt Resuscitation Condition at Discharge: Stable Discharge Disposition: Home Health Service - DIAGNOSES Admission Diagnoses: Pain, unspecified (R52) Unspecified fall, initial encounter (W19.XXXA) Fracture of unsp parts of lumbosacral spine and pelvis, init (S32.9XXA) Hypo-osmolality and hyponatremia (E87.1) Urinary tract infection, site not specified (N39.0) Dysuria (R30.0) Moderate protein-calorie malnutrition (E44.0) Malignant neoplasm of unsp site of unspecified female breast (C50.919) Alzheimer's disease, unspecified (G30.9) Hypothyroidism, unspecified (E03.9) Discharge Diagnoses with Status of Each Condition: Intractable pain (R52) Improved from the time of admission, but pain control was centered around rectal pain Fall (W19.XXXA) chronic, stable Pelvic fracture (S32.9XXA) new on this admission, follow up with ortho surgery UTI (urinary tract infection) (N39.0) Started on Augmentin, urine not of culture quality, dysuria improved Intestinal diverticular abscess (K63.0) new on this admission, but not a finding that could explain her ongoing rectal pain, continued benefiber at home Hyponatremia (E87.1) chronic, stable Protein-calorie malnutrition, moderate (E44.0) chronic, steady weight loss, but not enough to qualify for hospice Breast cancer (C50.919) chronic, stable Alzheimer's dementia (G30.9) Aricept stopped, started on Remeron to stimulate appetite Hypothyroidism (E03.9) chronic, stable, increased Grade I diastolic dysfunction (I51.9) Found on echo, suggest beta marco as the first line antihypertensive Iron deficiency anemia (D50.9) Confirmed with iron studies, continue on iron supplement Debility (R53.81) chronic, progressive, now worsened since her pelvic fracture - HPI History of Present Illness: Amada Marshall is an ill appearing 78-year old female with a past medical history of Alzheimer's dementia, hypothyroidism, status post thyroidectomy, bladder sling surgery, frequent falls, left breast cancer 11 years ago- in remission, compression fracture of T4, chronic pain syndrome, nocturia, depression, and anxiety. The patient was brought in via EMS to the ED after sustaining a ground level fall. Her , Flynn, spoke on his 's behave given her profound dementia and reports that a few days ago, his fell while attempting to get to the bathroom, landing on her left side. Since that time, she has not been able to ambulate, and her pain has become so unbearable despite staying in bed. He states that yesterday, she ate nothing, and only drank a few sips of liquid. He states that this is not the first fall and his has been having several falls over the past few weeks without injury. He denies loss of consciousness, but at times has found her on the floor, so he can't say for sure if they were mechanical falls. He states that she has not eaten any solid food for the past 8-10 months and relies on "slim fast" as her nutrition source. He states that for the past week, she has complained more of dysuria with urgency, frequency and burning. Labs show an elevated WBC count of 15.1, low H/H at 11.3/34.2, elevated platelet level of 465, neut # 13.4, sodium of 130, potassium of 3.8, GFR of 81, glucose of 129, low albumin of 2.9, and a urine test that is + for nitrites, elevated ketones, and 0-3 WBCs, culture is pending. A pelvic CT showed minimally displaced fractures involving the left pubic body, superior and inferior pubic rami with separate nondisplaced fracture with cortical buckling at the lateral portion of the left inferior ramus. The patient cannot roll over in bed without crying out on my initial exam, is a poor historian, does not recall the actual fall, and appears acutely ill. She continues to have dysuria with urgency, frequency, burning and incontinence. She will be admitted to observation for intractable pain, PT evaluation, syncope work up, and to treat this acute UTI. - CONSULTS | PROCEDURES Consultations: General surgery consult- Dr. Redd Lutz; Hospice consult- Dr. Gloria Canchola - HOSPITAL COURSE Hospital Course: (1) Intestinal diverticular abscess - Requested a general surgical consult for ongoing rectal pain that is superseding her acute fracture - Called radiology to clarify her abnormal vaginal US which was indicated to evaluate the etiology of her worsened rectal pain - This US report was grossly abnormal showing air in the uterus, of which the radiologist recommended further investigation - Started on Augmentin on 07/14/2018 for a presumed UTI, but the sample appears colonized - Abdominal/pelvis CT with contrast was completed which showed a sigmoid colon diverticular abscess - General surgery- Dr. Redd Lutz did a full digital rectal exam to rule out tumors, or other abnormalities, no external hemorrhoids were appreciated - Augmentin to treat this abscess to be continued at home - Patient is to get repeat imaging ~ 1 week, and to see Dr. Lutz outpatient (2) Intractable pain - Pain has now in her rectum as her primary complaint, despite her recent pelvic fracture and her chronic T4 compression fracture - No abnormalities on physical exam as per general surgery for rectal exam - Morphine increased to 10 mg Q2H, as needed - Has been able to ambulate since her injury, pelvic fracture with staff for bathroom needs - Prescribed tramadol at home, lidocaine patches for her known T4 compression fracture and continued here - Continue Hydrocodone as needed, now added moderate dose liquid morphine - Differential dx may be spinal/bone metastatic disease from her history of breast cancer - Met with radiology provider who does not believe her recent fracture or compression fracture of T4 show a probability of bone mets (not pathological fracture in nature) - Offered both the patient and her the option of Hospice as this will improve quality of life and may lead to improved pain control - Hospice has signed off, since the patient does not qualify - Patient has had a hospital bed delivered prior to her return home (3) Pelvic fracture - Pelvic CT shows a left pubic ramus fracture involving the superior, inferior, and body - Underlying rectal pain since having her bladder sling procedure- seems to be primary over this acute injury - Pain control is still inadequate - IV dilaudid caused dizziness- so discontinued - Hydrocodone has NOT been effective - Increased liquid morphine dose with minimal improvement - Hospice has signed off, Palliative care has been ordered, but will need to be ordered by PCP after discharge - Ortho evaluated- Dr. Sprague, not a surgical candidate (4) Fall - Per the patient's , Bill, she has been falling more often at home - Now with a pelvic fracture, not thought to be pathologic in nature as per - Previous fall led to a chronic T4 compression fracture - Now ambulating with staff to the bathroom only - Fell while attempting to get to the bathroom - Is thought to not have loss of consciousness - PT evaluated, home health PT/OT has been ordered (5) Hyponatremia - Prior hospital stays with sodium levels in the 115 range - now sodium level is low at 132 - May be related to poor nutrition, or infection - Baseline dementia, 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 - Per patient's , now with more lethargy and confusion - Slight sun-downing noted in the evening, which is ongoing - Attempts to get out of bed at times despite having her acute pelvic fracture (6) UTI (urinary tract infection) - Increased dysuria per with burning, urgency and frequency for the past few weeks at home - WBC count the same at 12.9 - UA + nitrites, culture show likely colonization, no identifiable pathogen - Chronic nocturia - Status post Rocephin - Culture results show possible colonized pathogens - Continues on Augmentin for newly discovered diverticular abscess (7) Protein-calorie malnutrition, moderate - states that for the past 8-10 months the patient has been drinking a few slim fast drinks as her main nutrition source - Anemia noted on labs - Appears cachectic, ill appearing, pale, and with facial swelling - Total protein is low at 6.5, albumin is 2.5 - Weight loss has been gradual as per the patient's as he notes that she "only consumes about 500 calories per day" - Nutrition consult notes; "no problems chewing or swallowing. Patient prefers cold foods (HB eggs, iced tea, ice cream, fruit, cottage cheese...) reinforced need to eat some solids, will provide Hi becky/pro nutrition supplement at 4 oz to encourage solid food intake. can fill up easily on liquids...encourage small snacks, left fruit in fridge, does like ice cream" - No wt loss noted, UBW 2014 was 52 kg, 2017 52 kg, Mar 2018 54 kg now at 56 kg - On exam, the patient is only consuming 0-25% of each meal - Pain control is inadequate - Remeron started to increase appetite at low dose of 7.5 mg - Hospice consulted, and the patient is not eligible for this service at this time (8) Breast cancer - Status post lumpectomy and thyroidectomy ~ 11 years ago - No issues since that time, except spinal involvement with compression fractures - chronic back pain for at least the past 1 year due to compression fracture of T4 - Concern for metastatic disease, but none found at this point to explain her ongoing pain issues and overall general decline (9) Alzheimer's dementia - brain imaging (MRI) from November of 2017 show moderate white matter disease - Poor historian on exam as expected - can attest to his as having very poor short term memory loss - Awaiting Hospice consult in the AM - no longer interested in Rehab as he wishes for quality of life, pain c ontrol and to make the most of each day - Aricept stopped for complaints of increased lethargy and increased sundowning - Aricept may also be a culprit of her ongoing poor appetite - Still mostly continent of bowel and bladder - No combative behaviors, but impulsive with lack of safety awareness (10) Hypothyroidism - Was taking synthroid 75 mcg 6 days per week at home - TSH very elevated at 17.77 - Increased Synthroid dose from 75 to 88 mcg daily - Free T3 and T4 both normal - May explain lack of appetite, and/or overall decline (11) Grade I diastolic dysfunction - Echo report from this hospital stay shows a grade I DD - EF normal at 60% - No valve abnormalities - Use BB as a first line anti-hypertensive at a later date if needed, repeat echo ~ 1 year or if symptoms (12) Anemia - Baseline H/H is ~ 14.8/43.9 - Now down to 10.5/31.2 - Normal MCV - Poor energy reserve - Pale, ill appearing cachetic female - Iron studies show low levels, so iron supplement sent to the pharmacy (13) Disposition The patient was medically stable and plans to return home via wheel chair van with a hospital bed already delivered by the [facility]. Prescriptions were sent to the pharmacy. - ALLERGIES Allergies/Adverse Reactions: Allergies Allergy/AdvReac Type Severity Reaction Status Date / Time nitrofurantoin Allergy Severe Hives Verified 07/13/18 10:34 macrocrystalline * [From Macrodantin] Sulfa (Sulfonamide Allergy Severe Hives Verified 07/13/18 10:34 Antibiotics) - MEDICATIONS Home Medications: Ambulatory Orders Medication Instructions Recorded Confirmed Aspirin [Aspirin EC] 650 mg PO .Q4-6H PRN 07/13/18 07/13/18 Clonazepam 0.25 mg PO DAILY 07/13/18 07/13/18 Lidocaine [Lidoderm] 1 patch TOP DAILY 07/13/18 07/13/18 Phenazopyridine HCl [Pyridium] 200 mg PO BID PRN 07/13/18 07/13/18 traMADol [Ultram] 50 mg PO DAILY PRN 07/13/18 07/13/18 Amox/Clav 875/125 [Augmentin 1 tab PO BID #20 tablet 07/17/18 875/125] Ferrous Gluconate 240 mg PO BID #60 tablet 07/17/18 Levothyroxine [Synthroid] 88 mcg PO QDAC #30 tablet 07/17/18 Loperamide [Imodium] 2 mg PO Q4H PRN #30 capsule 07/17/18 Mirtazapine [Remeron] 7.5 mg PO HS #30 tablet 07/17/18 Morphine Sulfate [Morphine Sulf 10 mg PO Q1H PRN #30 ml 07/17/18 Oral (Roxanol)] Wheat Dextrin [Benefiber] 1 packet PO DAILY #30 packet 07/17/18 - PHYSICAL EXAM AT DISCHARGE General Appearance: positive: Alert, Moderate distress Eyes Bilateral: positive: PERRL. negative: No scleral icterus ENT: positive: Pharynx nml, Dry mucous membranes Neck: positive: Thyroid nml, No JVD, Trachea midline Respiratory: positive: Chest non-tender, No respiratory distress, Other (scattered crackles, bilaterally) Cardiovascular: positive: Regular rate & rhythm, No gallop, Systolic murmur Peripheral Pulses: positive: 2+ Abdomen: positive: Tenderness, Guarding, Hepatomegaly, Other (rounded, soft) Back: positive: Nml inspection Skin: positive: No rash, Warm, Dry, Pallor Extremities: positive: Pedal edema, Joint swelling Neurologic/Psychiatric: positive: Disoriented to place, Disoriented to time, Weakness, Sensory loss, Slurred/abnml speech, Depressed mood/affect, Other (baseline moderate dementia) Reflexes: Bicep (R): 2+, Bicep (L): 2+ - LABS Result Diagrams: 07/17/18 05:15 07/17/18 05:15 - DIAGNOSTIC IMAGING Diagnostic Imaging Results: Final report reviewed Diagnostic Imaging Results Comments: EXAM: LEFT HIP RADIOGRAPHY EXAM DATE: 07/13/2018 12:07 PM IMPRESSION: Rotation and foreshortening of the left hip, suspicious for possibility of nonvisualized femoral neck fracture. Left-sided pubic rami fractures. Recommendation: CT pelvis. EXAM: CT BONY PELVIS WITHOUT CONTRAST EXAM DATE: 07/13/2018 01:09 PM. IMPRESSION: 1. Comminuted minimally displaced fractures involving the left pubic body, superior and inferior pubic rami with separate nondisplaced fracture with cortical buckling at the lateral portion of the left inferior ramus. Slight cortical buckling indicating nondisplaced fracture left sacral ala. EXAM: PELVIC ULTRASOUND EXAM DATE: 07/16/2018 01:00 AM IMPRESSION: 1. Ovaries could not be visualized with certainty. No suspicious adnexal mass noted. 2. Heterogeneous abnormality within the posterior myometrium with an apparent fistulous communication with the distal sigmoid/rectum. This abnormality within the myometrium measures 4.5 x 3.1 x 3.1 cm. EXAM: CT ABDOMEN AND PELVIS EXAM DATE: 07/16/2018 01:45 PM IMPRESSION: 1. Wall thickening and fat stranding involving the mid to distal sigmoid colon consistent with colitis, likely diverticulitis. 2. Loculated 2.8 x 3.4 x 3.2 cm fluid collection at the serosal interface of the uterus and anterior wall of the mid sigmoid colon consistent with abscess. No free air or free fluid. 3. Consider posttreatment colonoscopy to exclude malignancy. ECHOCARDIOGRAM: Final read by Tyree Hill MD on 07/14/2018 Normal LV size and function, EF 60%. The LA is normal in size. Grade I diastolic dysfunction. Normal RV size and function, normal pulmonary pressure. Mild mitral regurg. - FOLLOW UP Follow Up: Please order Palliative care for improved pain control and to limit hospital stays. Hospice was consulted, but did not accept due the patient's lack of terminal illnesses, they suggest Methadone for the mainstay of pain control. Please see Dr. Redd Lutz in ~1 week to follow up on diverticular abscess, with imaging. Please re-check TSH in 4-6 weeks, Synthroid dose increased during this hospital stay. - TIME SPENT Time Spent in Discharge (Minutes): 60
[2018-07-17] MEDS ORDERED: WITCH HAZEL/GLYCERIN 1 EACH MED..PAD TOP PRN (12:08)
[2018-07-17 12:53] LABS: % IRON SATURATION 6 % (20-50); IRON 15 ug/dL (28-170); TOTAL IRON BINDING CAPACITY 231 ug/dL (250-450); TRANSFERRIN 165 mg/dL (192-382)
[2018-07-18] MEDS ORDERED: WHEAT DEXTRIN POWDER PACKET PO SCH (09:00)
== END 2018-07-17 16:15 | disposition home health service (06) ==
LOC: EDUNIT# → ED 10:25 → MS2 14:06
PROVIDERS: ADMIT Nurse Practitioner; ATTEND Nurse Practitioner
DX: S32.810A Multiple fractures of pelvis with stable disruption of pelvic ring, initial encounter for closed fracture (principal); W18.30XA Fall on same level, unspecified, initial encounter; Y92.002 Bathroom of unspecified non-institutional (private) residence as the place of occurrence of the external cause; N30.00 Acute cystitis without hematuria; K57.20 Diverticulitis of large intestine with perforation and abscess without bleeding; E87.1 Hypo-osmolality and hyponatremia; E44.0 Moderate protein-calorie malnutrition; Z68.24 Body mass index [BMI] 24.0-24.9, adult; R64 Cachexia; G30.9 Alzheimer's disease, unspecified; F02.81 Dementia in other diseases classified elsewhere, unspecified severity, with behavioral disturbance; E89.0 Postprocedural hypothyroidism; I11.9 Hypertensive heart disease without heart failure; D50.9 Iron deficiency anemia, unspecified; R53.81 Other malaise; R35.1 Nocturia; R32 Unspecified urinary incontinence; R35.0 Frequency of micturition; F32.9 Major depressive disorder, single episode, unspecified; F41.9 Anxiety disorder, unspecified; K62.89 Other specified diseases of anus and rectum; M81.0 Age-related osteoporosis without current pathological fracture; S22.009D Unspecified fracture of unspecified thoracic vertebra, subsequent encounter for fracture with routine healing; G89.29 Other chronic pain; F05 Delirium due to known physiological condition; R25.1 Tremor, unspecified; K21.9 Gastro-esophageal reflux disease without esophagitis; H54.7 Unspecified visual loss; R93.89 Abnormal findings on diagnostic imaging of other specified body structures; Z66 Do not resuscitate; Z51.5 Encounter for palliative care; Z91.81 History of falling; Z79.82 Long term (current) use of aspirin; Z85.3 Personal history of malignant neoplasm of breast
CPT/HCPCS: 36415; 72192; 73502; 74177; 76830; 80048; 80053; 81001; 82378; 83540; 83690; 83735; 84100; 84439; 84466; 84481; 85025; 87086; 93306; 96361; 96365; 96372; 96375; 97161; 97164; 99284; A9270; G0378; J1170; J1650; Q9967; 81003; 84443; 99283

== ENCOUNTER 2018-07-29 11:16 | Outpatient (CLI) | payer MEDICARE, OTHER ==
[2018-07-29] MEDS ORDERED: IOVERSOL 320 100 ML VIAL IVP ONE ×2 (11:43→13:21)
[2018-07-29] MEDS ORDERED: IOVERSOL 320 50 ML VIAL ONE (11:43)
[2018-07-29] MEDS ORDERED: IOVERSOL 320 50 ML VIAL PO ONE (13:21)
--- NOTE | 2018-07-31 03:21 | CT Report ---
Reason: DIVERTICULITIS WITH DIVERTICULAR ABSCESS Procedure Date: 07/29/2018 Accession Number: [id number] / [id number] Procedure: CT - Abdomen/Pelvis W CPT Code: FULL RESULT: EXAM: CT ABDOMEN AND PELVIS EXAM DATE: 07/29/2018 01:18 PM. CLINICAL HISTORY: Diverticulitis with diverticular abscess. COMPARISONS: ABDOMEN/PELVIS W/ 07/16/2018 1:33 PM. TECHNIQUE: Routine helical CT imaging was performed through the abdomen and pelvis. IV contrast: Yes. Enteric contrast: Yes. Reconstructions: Coronal and sagittal. In accordance with CT protocol optimization, one or more of the following dose reduction techniques were utilized for this exam: automated exposure control, adjustment of mA and/or KV based on patient size, or use of iterative reconstructive technique. FINDINGS: Lung Bases: Unremarkable. Liver: Couple of tiny probable cysts. No suspicious masses. Gallbladder/Bile Ducts: Unremarkable. Spleen: Unremarkable. Pancreas: Unremarkable. Adrenal Glands: Unremarkable. Kidneys: Unremarkable. No suspicious masses or hydronephrosis. Peritoneal Cavity/Bowel: Subacute on chronic mid sigmoid colon diverticulitis with improving surrounding inflammatory changes. Interval decrease in the previously seen diverticular abscess involving the uterine wall with only gas component currently measuring approximately 2 x 2 x 2 cm. On coronal images 26 through 30, there are inflammatory changes from the colon to the vaginal fornix without definitive gas-containing patent fistula but patient is at high risk. Bowel otherwise appears unremarkable. Pelvic Organs: Please see above for uterus and vagina. No suspicious adnexal masses. Urinary bladder unremarkable. Vasculature: No aneurysms or other significant abnormality. Bones: No significant abnormality. Other: None. IMPRESSION: 1. Subacute on chronic sigmoid colon diverticulitis with decrease in the pericolonic abscess involving the uterine wall, now only containing gas and measuring approximately 2 x 2 x 2 cm. 2. Inflammatory changes from the colon to the vaginal fornix without definitive gas-containing patent colovaginal fistula but patient is at high risk. Feculent discharge if present could be from either colouterine and/or colovaginal fistula. Correlation with clinical exam suggested. RADIA
== END 2018-07-29 11:17 | disposition home or self-care (01) ==
LOC: DI 11:16
PROVIDERS: ATTEND Internal Medicine Gastroenterology
DX: K57.32 Diverticulitis of large intestine without perforation or abscess without bleeding (principal)
CPT/HCPCS: 74177; Q9967

== ENCOUNTER 2018-08-03 15:18 | Inpatient (IN) | payer MEDICARE, OTHER ==
[2018-08-03] MEDS ORDERED: SODIUM CHLORIDE 0.9% 2,000 ML IV ONE (15:42)
[2018-08-03 15:51] LABS: BASOPHILS % (AUTO) 0.3 %; EOSINOPHILS # (AUTO) 0.1 10^3/uL (0.0-0.7); EOSINOPHILS % (AUTO) 0.7 %; HGB - HEMOGLOBIN 12.4 g/dL (12.0-16.0); LYMPHOCYTES # (AUTO) 4.6 10^3/uL (1.5-3.5); MEAN CORPUSCULAR HEMOGLOBIN 29.5 pg (27.0-31.0); MEAN CORPUSCULAR HGB CONC 32.9 g/dL (32.0-36.0); MEAN CORPUSCULAR VOLUME 89.5 fL (81.0-99.0); MEAN PLATELET VOLUME 9.9 fL (7.9-10.8); MONOCYTES % (AUTO) 7.5 %; NEUTROPHILS % (AUTO) 54.9 %; PLT - PLATELET COUNT 429 10^3/uL (130-450); RED BLOOD COUNT 4.21 10^6/uL (4.20-5.40); RED CELL DISTRIBUTION WIDTH 14.4 % (12.0-15.0); WHITE BLOOD COUNT 12.7 x10^3/uL (4.8-10.8)
[2018-08-03] MEDS ORDERED: HYDROmorphone 1 MG/ML CARPUJECT IVP STA (15:53)
--- NOTE | 2018-08-03 15:56 | ED Physician Documentation ---
History of Present Illness - Stated complaint Stated Complaint: RAPID HB - Chief complaint Chief Complaint: Cardiac - History obtained from History obtained from: Patient, Family - History of Present Illness Pain level max: 5 Pain level now: 4 - Additonal information Additional information: 78-year-old female presents to the emergency department after being seen at the general surgery clinic today and found to be tachycardic. She has not been feeling well for the past several days. She is being treated for a intra- abdominal abscess with oral antibiotics. Last antibiotic was 4 days ago. Heart rate in the 130s 140s at the general surgery clinic. She has been receiving 10 mg of IV morphine every 3-4 hours at home. She does not eat much. She does drink fluids. No bowel movement for several days. Has felt feverish at home. Nothing makes it better or worse. 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 (bladder sling surgery) : Incontinence, Nocturia, Frequency HEENT: Chronic vision loss Psych: Depression, Anxiety, Claustrophobia, Other Musculoskeletal: Osteoporosis, Fatigue, Chronic back pain Derm: None - Past Surgical History Past Surgical History: Yes General: Other /THRASHER FEEDER: Other HEENT: Tonsil/Adenoidectomy, Other (total thyroidectomy in 2004, cystic thyroid which was concerning for CA, benign) - Present Medications Home Medications: Ambulatory Orders Medication Instructions Recorded Confirmed Aspirin [Aspirin EC] 650 mg PO .Q4-6H PRN 07/13/18 07/13/18 Clonazepam 0.25 mg PO DAILY 07/13/18 07/13/18 Lidocaine [Lidoderm] 1 patch TOP DAILY 07/13/18 07/13/18 Phenazopyridine HCl [Pyridium] 200 mg PO BID PRN 07/13/18 07/13/18 traMADol [Ultram] 50 mg PO DAILY PRN 07/13/18 07/13/18 Amox/Clav 875/125 [Augmentin 1 tab PO BID #20 tablet 07/17/18 875/125] Ferrous Gluconate 240 mg PO BID #60 tablet 07/17/18 Levothyroxine [Synthroid] 88 mcg PO QDAC #30 tablet 07/17/18 Loperamide [Imodium] 2 mg PO Q4H PRN #30 capsule 07/17/18 Mirtazapine [Remeron] 7.5 mg PO HS #30 tablet 07/17/18 Morphine Sulfate [Morphine Sulf 10 mg PO Q1H PRN #30 ml 07/17/18 Oral (Roxanol)] Wheat Dextrin [Benefiber] 1 packet PO DAILY #30 packet 07/17/18 - Allergies Allergies/Adverse Reactions: Allergies Allergy/AdvReac Type Severity Reaction Status Date / Time nitrofurantoin Allergy Severe Hives Verified 07/13/18 10:34 macrocrystalline * [From Macrodantin] Sulfa (Sulfonamide Allergy Severe Hives Verified 07/13/18 10:34 Antibiotics) - Social History Does the pt smoke?: No Smoking Status: Never smoker Does the pt drink ETOH?: No Does the pt have substance abuse?: No - Immunizations Immunizations are current?: Yes - POLST Patient has POLST: No POLST Status: DNR PD ED PE NORMAL - Vitals Vital signs reviewed: Yes - General General: Alert and oriented X 3, Other (thin female) - HEENT HEENT: PERRL, Other (dry lips and tongue) - Neck Neck: Supple, no meningeal sign, No adenopathy - Cardiac Cardiac: Other (tachycardic) - Respiratory Respiratory: No respiratory distress, Clear bilaterally - Abdomen Abdomen: Soft, Non distended, Other (Diffusely tender palpation without peritoneal signs.) - Back Back: No CVA TTP, No spinal TTP - Derm Derm: Warm and dry - Extremities Extremities: No calf tenderness / cord - Neuro Neuro: Alert and oriented X 3 - Psych Psych: Normal mood, Normal affect Results - Vitals Vitals: Vital Signs - 24 hr 08/03/18 08/03/18 08/03/18 15:28 16:21 16:33 Temperature 36.8 C 37.1 C Heart Rate 131 H 110 H 100 Respiratory 26 H 26 H 23 Rate Blood Pressure 140/85 H 116/77 125/70 O2 Saturation 98 99 100 Oxygen O2 Source Non-rebreather mask Oxygen Flow Rate 10 - EKG (time done) 1527 Rate: Rate (enter#) (121) Rhythm: Sinus tachycardia [place]: Normal Intervals: Normal IA QRS: Normal Ischemia: Normal ST segments - Labs Labs: Laboratory Tests 08/03/18 08/03/18 08/03/18 15:30 15:35 15:35 WBC 12.7 H RBC 4.21 Hgb 12.4 Hct 37.7 MCV 89.5 MCH 29.5 MCHC 32.9 RDW 14.4 Plt Count 429 MPV 9.9 Neut # (Auto) 7.0 H Lymph # (Auto) 4.6 H [place] # (Auto) 1.0 Eos # (Auto) 0.1 Baso # (Auto) 0.0 Absolute Nucleated RBC 0.00 Nucleated RBC % 0.0 PT 14.3 H INR 1.3 H APTT 25.1 Sodium Potassium Chloride Carbon Dioxide Anion Gap BUN Creatinine Estimated GFR (MDRD) Glucose Lactic Acid Calcium Total Bilirubin AST ALT Alkaline Phosphatase Total Protein Albumin Globulin Albumin/Globulin Ratio Lipase Urine Color YELLOW Urine Clarity CLEAR Urine pH 7.5 Ur Specific [place] <=1.005 Urine Protein NEGATIVE Urine Glucose (UA) NEGATIVE Urine Ketones NEGATIVE Urine Occult Blood TRACE-INTA Urine Nitrite NEGATIVE Urine Bilirubin NEGATIVE Urine Urobilinogen 0.2 (NORMAL) Ur Leukocyte Esterase NEGATIVE Ur Microscopic Review NOT INDICATED Urine Culture Comments NOT INDICATED 08/03/18 08/03/18 15:35 15:57 WBC RBC Hgb Hct MCV MCH MCHC RDW Plt Count MPV Neut # (Auto) Lymph # (Auto) [place] # (Auto) Eos # (Auto) Baso # (Auto) Absolute Nucleated RBC Nucleated RBC % PT INR APTT Sodium 127 L Potassium 3.2 L Chloride 87 L Carbon Dioxide 23 Anion Gap 17.0 H BUN < 5 L Creatinine 0.7 Estimated GFR (MDRD) 81 L Glucose 117 H Lactic Acid 5.1 H* Calcium 9.0 Total Bilirubin 0.5 AST 31 ALT 11 Alkaline Phosphatase 110 Total Protein 7.4 Albumin 3.3 Globulin 4.1 Albumin/Globulin Ratio 0.8 L Lipase 31 Urine Color Urine Clarity Urine pH Ur Specific [place] Urine Protein Urine Glucose (UA) Urine Ketones Urine Occult Blood Urine Nitrite Urine Bilirubin Urine Urobilinogen Ur Leukocyte Esterase Ur Microscopic Review Urine Culture Comments - Rads (name of study) CT abd.pelvis Radiology: Prelim report reviewed, EMP read contemporaneously, See rad report (Mid to lower sigmoid diverticulitis, with small persistent diverticular abscess between the sigmoid colon and left uterus and in the wall of the mid sigmoid colon, and with extraluminal air adjacent to the diverticulitis and between the bladder and uterus compatible with contained ongoing air leak. ) cxr Radiology: Prelim report reviewed, EMP read contemporaneously, See rad report (no acute disease) PD MEDICAL DECISION MAKING - ED course Complexity details: reviewed old records, reviewed results, re-evaluated patient, considered differential, d/w patient, d/w family, d/w engagement quality consultant ED course: 78-year-old female presents to the emergency department with what appears to be sepsis secondary to diverticulitis with abscess. Given IV fluids, antibiotics. Started on the sepsis pathway. Discussed the case with Dr. Hussein, general surgery on-call who will consult. Also discussed the case with Dr. Alvarez, hospitalist who accepts. This document was made in part using voice recognition software. While efforts are made to proofread this document, sound alike and grammatical errors may occur. - Sepsis Event Current Stage of Sepsis: Sepsis Possible source of Sepsis: GI tract/intra-abdominal Mental/Cognitive Status: Alert/Oriented X3 Reason for not giving 30ml/kg crystalloid fluids: Bolus previously given Capillary refill: Less than 2 seconds Peripheral Pulse Strength: 3+ Normal Peripheral Pulse Location: Radial Bedside ultrasound performed: No Departure - Departure Disposition: 66 [facility] DC/Xfer Clinical Impression: Hyponatremia, Intestinal diverticular abscess, Diverticulitis Sepsis Qualifiers: Sepsis type: sepsis due to unspecified organism Qualified Code(s): A41.9 - Sepsis, unspecified organism Condition: Stable Discharge Date/Time: 08/03/18 18:38
[2018-08-03 16:05] LABS: ALBUMIN 3.3 g/dL (3.2-5.5); ALBUMIN/GLOBULIN RATIO 0.8 (1.0-2.2); ALKALINE PHOSPHATASE 110 IU/L (42-121); ALT ALANINE AMINOTRANSFERASE 11 IU/L (10-60); AST ASPARTATE AMINOTRANSFERASE 31 IU/L (10-42); BILIRUBIN,TOTAL 0.5 mg/dL (0.2-1.0); BUN - BLOOD UREA NITROGEN < 5 mg/dL (6-20); CARBON DIOXIDE - CO2 23 mmol/L (21-32); CHLORIDE 87 mmol/L (101-111); CREATININE 0.7 mg/dL (0.4-1.0); GFR - MDRD 81 (>89); GLUCOSE 117 mg/dL (70-100); LIPASE 31 U/L (22-51); SODIUM 127 mmol/L (135-145); TOTAL PROTEIN 7.4 g/dL (6.7-8.2)
[2018-08-03 16:06] LABS: BILIRUBIN,URINE NEGATIVE (NEGATIVE); GLUCOSE, URINE (UA) NEGATIVE (NEGATIVE); KETONES,URINE (UA) NEGATIVE (NEGATIVE); LEUKOCYTE ESTERASE, URINE NEGATIVE (NEGATIVE); NITRITE,URINE NEGATIVE (NEGATIVE); OCCULT BLOOD,URINE TRACE-INTA (NEGATIVE); PH,URINE 7.5 PH (5.0-7.5); PROTEIN,URINE NEGATIVE (NEGATIVE); UROBILINOGEN,URINE 0.2 (NORMAL) E.U./dL (NORMAL)
[2018-08-03 16:08] LABS: CLARITY,URINE CLEAR (CLEAR)
[2018-08-03 16:12] LABS: INR 1.3 (0.8-1.2); PT - PROTHROMBIN TIME 14.3 secs (9.9-12.6)
--- NOTE | 2018-08-03 16:18 | XRAY Report ---
Reason: fever, tachycardia Procedure Date: 08/03/2018 Accession Number: [id number] / [id number] Procedure: XR - Chest 1 View X-Ray CPT Code: 73117 FULL RESULT: EXAM: CHEST RADIOGRAPHY EXAM DATE: 08/03/2018 04:03 PM. CLINICAL HISTORY: Fever, tachycardia. COMPARISON: 06/11/2014. TECHNIQUE: 1 view. FINDINGS: Lungs/Pleura: No localized infiltrate, consolidation, effusion, or pneumothorax. Mediastinum: Within exam limitations, the cardiomediastinal contour is normal. Upper lobe vessels not distended. Other: Osteopenia, degenerative changes. IMPRESSION: No acute disease. RADIA
[2018-08-03 16:19] LABS: PARTIAL THROMBOPLASTIN TIME 25.1 secs (24.9-33.3)
[2018-08-03] MEDS ORDERED: metroNIDAZOLE 500 MG/100 ML 500 MG/100 ML BAG IV STA (16:30)
[2018-08-03] MEDS ORDERED: CEFEPIME 2 GM in SODIUM CHLORIDE 0.9% MINIBAG 100 ML IV STA (16:30)
[2018-08-03] MEDS ORDERED: VANCOMYCIN INJ 1.5 GM in SODIUM CHLORIDE 0.9% 500 ML IV STA (16:30)
[2018-08-03] MEDS ORDERED: IOVERSOL 320 100 ML VIAL IVP ONE ×2 (16:34→16:56)
[2018-08-03] MEDS ORDERED: SODIUM CHLORIDE 0.9% 1,000 ML IV ONE (17:14)
--- NOTE | 2018-08-03 17:25 | CT Report ---
Reason: abd abscess, tachycardia Procedure Date: 08/03/2018 Accession Number: [id number] / [id number] Procedure: CT - Abdomen/Pelvis W CPT Code: FULL RESULT: EXAM: CT ABDOMEN AND PELVIS EXAM DATE: 08/03/2018 04:49 PM. CLINICAL HISTORY: Abdominal abscess. Tachycardia. COMPARISONS: ABDOMEN/PELVIS W/ 07/29/2018 1:10 PM. TECHNIQUE: Routine helical CT imaging was performed through the abdomen and pelvis. IV contrast: 100 cc of Optiray 320. Enteric contrast: Yes. Reconstructions: Coronal and sagittal. In accordance with CT protocol optimization, one or more of the following dose reduction techniques were utilized for this exam: automated exposure control, adjustment of mA and/or KV based on patient size, or use of iterative reconstructive technique. FINDINGS: Lung Bases: Minimal atelectasis in the bases. Liver: Stable subcentimeter low densities, likely small cysts. Gallbladder/Bile Ducts: Unremarkable. Spleen: Normal. Pancreas: Normal. Adrenal Glands: Normal. Kidneys: Normal. No masses or hydronephrosis. Peritoneal Cavity/Bowel: Sigmoid diverticulosis with distal wall thickening compatible with diverticulitis. Persistent complex fluid collection and air bubbles with surrounding enhancing wall between the uterus and sigmoid colon on the left, 1.5 x 1.8 x 1.5 cm. Extraluminal air between the uterus and bladder. Then complex fluid collection within the anterior sigmoid wall, seen best image 24 series 5. No free fluid, free air or adenopathy. No masses. The appendix is well visualized and normal. Pelvic Organs: Normal. The bladder and visualized pelvic organs are within normal limits. Vasculature: No aortic aneurysm. Atherosclerotic calcification noted. Bones: Healing left hemipelvic fractures in stable position. Other: None. IMPRESSION: Mid to lower sigmoid diverticulitis, with small persistent diverticular abscess between the sigmoid colon and left uterus and in the wall of the mid sigmoid colon, and with extraluminal air adjacent to the diverticulitis and between the bladder and uterus compatible with contained ongoing air leak. RADIA
[2018-08-03] MEDS ORDERED: ONDANSETRON ODT 4 MG TABLET TL PRN (17:33)
[2018-08-03] MEDS ORDERED: LORazepam 0.5 MG TABLET SL PRN (17:38)
[2018-08-03] MEDS: MEROPENEM 1 GM in SODIUM CHLORIDE 0.9% MINIBAG 100 ML IV SCH (19:05)
[2018-08-03] MEDS: SODIUM CHLORIDE 0.9% 1,000 ML IV SCH (19:06)
[2018-08-03] MEDS: LIDOCAINE PATCH 5% TOP SCH (22:24)
--- NOTE | 2018-08-03 22:59 | HISTORY & PHYSICAL EXAMINATION ---
DATE OF SERVICE: 08/03/2018 Physician: Alfreda Alvarez MD PRIMARY CARE PROVIDER: Brooklynn Conklin MD ADMITTING PROVIDER: Alfreda Alvarez MD CHIEF COMPLAINT: Severe generalized lower abdominal pain, worse on the left side. HISTORY OF PRESENT ILLNESS: This is a jacquelyn elderly, demented female, who lives in her own home with her who is a retired orthopedic surgeon. Starting in [id number], there was a subtle deterioration in her to cognitive abilities and by 2015, there was danny depression where she just did not want to get out of bed. She was started on Lexapro and Klonopin and by 2017 was continuing to fail. She took an acute turn for the worse in November 2017. An MRI was done to evaluate her and all that was seen was white matter disease. Neuropsych evaluation done January 2018 and February 2018 confirms major cognitive deficits across all cognitive domains compatible with Alzheimer's dementia. She is on Aricept. In addition to her decline because of dementia, she has osteoporosis. She fell in her kitchen in 2016 and has had subsequent C- spine radiculopathy with bilateral arm pain, elbow pain and forearm pain. She also has pinpoint T-spine pain from a vertebral compression fracture. This leaves her with chronic pain syndrome, poor appetite, and she prefers to drink her food in the form of Ensure, etc., then eat true meals. She has actually had syncope twice in association with poor p.o. intake. She was last admitted in 07/13/2018. At that time, she had fallen in her kitchen approximately 07/09/2018. She was trying to get up to go to the bathroom and landed on her side. Ever since then, she could not ambulate, and her pain in her pelvis became so unbearable despite staying in bed that she came to the emergency room on 07/13/2018. She was diagnosed with a pelvic fracture, and she had complaints of a urinary tract infection with urgency, frequency, dysuria. She was noted to have moderate protein-calorie malnutrition, her Alzheimer's dementia, stable thyroid disease, and her risk of falls. She was eventually stabilized with regard to pain management and able to go home on 07/17/2018. During that stay, there was a complication of increased abdominal pain where she was diagnosed with diverticulitis. She was having vaginal pain and a vaginal ultrasound showed her to have air. She was started on Augmentin for possible UTI, but the diagnosis changed and became the diverticulitis. She has sigmoid colon diverticular abscess. Dr. Lutz did a full digital rectal exam, and he recommended treating her with p.o. Augmentin and sending her home. She was to get repeat imaging in a week after discharge and see Dr. Lutz in the outpatient setting. She did have a repeat CT of abdomen and pelvis 07/29/2018. She had a subacute on chronic mid sigmoid colon diverticulitis with improving surrounding inflammatory changes. Interval decrease in the previously seen diverticular abscess involving the uterine wall with only gas component measuring 2 x 2 x 2 cm. The bowel was otherwise unremarkable. She continued to have inflammatory changes from the colon to the vaginal fornix without definitive gas containing patent colovaginal fistula, but the patient was felt to be continued risk for this. The only other lower bowel history she has had is that of thrombosed hemorrhoids in March 2016 where she underwent a fissurectomy. Subsequent colonoscopy as well. She was seen in the General Surgery Clinic today, found to be tachycardic. She had not been feeling well for several days. Her last antibiotic use was four days ago. Her heart rate in the clinic was 130s-140s. She was receiving 10 mg of IV morphine every 3-4 hours through her . The history was endorsed of anorexia, poor p.o. intake, and no BM for several days. As such, she was brought to the emergency room where her temperature was 36.8, heart rate 131, respiratory rate 26, blood pressure 140/85, and 98% saturation on room air. Dr. Gómez's exam showed her to have a soft, nondistended abdomen with diffuse tenderness and no peritoneal findings. Her white cell count was 12.7. CT of the abdomen had sigmoid diverticulosis with distal wall thickening compatible with diverticulitis. Persistent complex fluid collection and air bubbles with surrounding enhancing wall between the uterus and sigmoid colon on the left, that was 1.5 x 1.8 x 1.5 cm. Extraluminal air between the uterus and the bladder. She also had a complex fluid collection with the anterior sigmoid wall. No free fluid, free air or adenopathy. Since she has failed conservative management, the patient is now brought in to be n.p.o., IV antibiotics, and a definitive surgical consultation. We have been asked to admit the patient to our service. Her vital signs are stable, she is afebrile, she is hyponatremic, hypokalemic, with an anion gap of 17, and carbon dioxide level of 23. Lactic acid is 5.1. PAST MEDICAL HISTORY 1. Dementia as described above. 2. C-spine radiculopathy with chronic shoulder pain and bilateral arm and forearm to elbow pain. She has been seen by Neurosurgery and has had an MRI and is not a surgical candidate. 3. Orthostatic syncope associated with malnutrition. 4. Elevated blood pressure with a diagnosis of hypertension. 5. Depression with possible manifestation of dementia. 6. Osteoarthritis of the knees. 7. Hypothyroidism after a thyroidectomy in 2004. 8. Gastroesophageal reflux disease. 9. Osteoporosis. 10. Breast cancer with lumpectomy in 2007. 11. G2, P2, with a bladder sling. ALLERGIES SHE IS ALLERGIC TO: 1. NITROFURANTOIN. 2. SULFA. MEDICATIONS 1. Aspirin 650 mg every 4 hours as needed. This woman will take up to 6-8 aspirin tablets a day. 2. Clonazepam 0.25 mg daily. 3. Lidoderm patch to affected area daily. 4. Pyridium 200 mg p.o. t.i.d. p.r.n. 5. Tramadol 50 mg daily. 6. Ferrous gluconate 240 mg b.i.d. 7. Synthroid 88 mcg daily. 8. Remeron 7.5 mg at bedtime. 9. Oral morphine 10 mg every hour as needed. 10. Benefiber as needed. 11. Roxanol drops as needed. She finished taking Augmentin four or five days ago. 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 She is to her , Flynn, who is a retired orthopedic surgeon. They live in their own home and he is her sole care provider. She has three grown daughters that [place] She has no history of tobacco use. No history of alcohol abuse. No history of recreational substance abuse. For pain management of her T-spine fractures, they have tried CBD, THC oils. FAMILY HISTORY 1. Mother of old age with multiinfarct dementia, stroke, coronary artery disease, generalized osteoarthritis. 2. Dad of old age with no major medical history. 3. One brother has coronary artery disease, but is alive and healthy. 4. Three children are healthy. PRIOR LEVEL OF FUNCTIONALITY: Prior to her pelvic fracture earlier this month, she was ambulating in her home independently. With the fracture, she spends most of her time in bed now. She was doing her ADLs independently and he now helps her with those. CODE STATUS: DO NOT RESUSCITATE per her . REVIEW OF SYSTEMS CONSTITUTIONAL: She feels slightly feverish over the last few days, tired all the time. She states that she is just so sleepy and would prefer to stay in bed. She has lost 20 pounds over six months before her early July admission. At discharge, she was 57 kg from the hospital; on this admission today, she is 54 kg. HEENT: Denies blurred vision, headaches, problems with swallowing, but everything tastes bad in her mouth, her mouth is always dry. PULMONARY: Denies coughing, wheezing, chest congestion, hemoptysis, recent URI. CARDIOVASCULAR: She was diagnosed as diastolic grade 1 congestive heart failure with her last admission based on echocardiogram. I am not clear why this one had an echocardiogram in the first place. Right now, she denies edema or orthopnea. She denies any chest pain. She does not feel like her heart rate was fast when she came to the emergency room, even though it was in the 130s. Treatment has consisted of IV fluids and antibiotics and her tachycardia is now resolved and her rate is 98. ABDOMEN: Hurts in the bilateral lower pelvic regions, especially in the left side. She denies pain with bowel movement. Denies any blood in her stool, but she readily endorses the fact that she is very forgetful. While she answers my questions readily, she does follow up some of her answers by saying you better check this out with my because, "I'm not really sure." JOINTS: Her hands and wrists hurt, elbows, shoulders hurt. That is not new. SKIN: Denies any new lesions, moles. PSYCHIATRIC: She shrugs her shoulders and says "I guess I'm depressed," but she seems so vague about it and denies suicidal ideation or hallucinations. 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 We will have to discuss with when he returns. PHYSICAL EXAMINATION VITAL SIGNS: On examination, temperature is 37.2 now that she is on med/surg, pulse 97, blood pressure 129/75, respirations 24 and unlabored, and she is 100%, saturating on room air. GENERAL: Shows her to be a cachectic, frail looking, pleasant female, who looks her stated age and is in no acute distress, lying comfortably flat in the bed. HEAD AND NECK: There are no contusions. Pupils are reactive. Sclerae nonicteric. Oral mucosa is quite dry. Her lips are sticking to her teeth when she talks to me. No facial asymmetry and vocal cord tonality appears normal. Neck is supple without goiter or bruits. No stiffness. LUNGS: Clear to auscultation and percussion with slow unlabored respirations. There is no increased respiratory effort. HEART: PMI is normally placed with a regular rate and rhythm, systolic murmur, loudest at the left lower sternal border. ABDOMEN: Nondistended, and she winces a bit as I palpate her right upper quadrant and left upper quadrant, but denies any significant pain there. As I palpate her lower quadrants, she has bilateral lower quadrant pain, more significant on the left than the right, but both are quite prominent. She has hypoactive bowel sounds. No rebound or guarding. As I shake her pelvis gently, there are no peritoneal findings. EXTREMITIES: Warm. No clubbing, cyanosis or edema. SKIN: Noted for its pallor. NEUROLOGIC: This jacquelyn lady is cooperative, alert to place and person, but not time. She knows she is in the hospital in [place] and she knows what her name is and that her has gone to drop off a friend. She follows one- step commands easily, for instance I asked her to raise her arm up above her head, or wiggle her left toes, and she does so. Upper and lower extremity strength testing is normal for her age and weakness. Normal reflexes. There are no tremors. Cranial nerves II-XII appear grossly intact. LABORATORY DATA: Sodium 127, potassium 3.2, anion gap 17, BUN less than 5, creatinine 0.7, random glucose 81. Lactic acid 5.1, albumin 3.3, lipase 31. Review of iron from 07/17/2018 shows her to have iron of 15, TIBC 231, percent saturation 6 and transferrin 165. CBC: Hemoglobin is 12.4, hematocrit 37.7, white cell count 12.7. INR is 1.3. Urinalysis is clear. Abdomen and pelvis CT reviewed as above. Chest x-ray has no acute disease. ASSESSMENT/PLAN 1. Diverticular abscess, probable fistula between colon and uterus, or colon and bladder or all three. Initial outpatient management was successful, but in the last few days, she has regressed. Dr. Lázaro Hussein is clinical documentation improvement specialist for general surgery and is covering for Dr. Redd Lutz. He will speak to the , review the case and make his recommendations. Options will be IV antibiotic therapy again, definitive colectomy with reanastomosis, colectomy with colostomy. PLAN: a. Inpatient admission. b. Attestation that the patient will be discharged in 96 hours. c. Meropenem. 2. Moderate protein-calorie malnutrition with failure to thrive noted on last admission. She has had even more weight loss between last admission and now. PLAN: Nutrition consult. Possible TPN 3. Alzheimer's dementia, without behavioral disorder. The patient appears cooperative, no psychosis, and her is her primary care provider at home. PLAN: At this time hold her Aricept. We will resume when she can take p.o. medication on a regular basis. 4. Fracture of T-spine and pelvis with chronic pain. Planning on giving Dilaudid p.r.n. IV. 5. Lactic acidosis. The patient does not have sepsis. She is not on metformin. She may be dehydrated. PLAN: Hydration, antibiotics, repeat lactic acid in 6 hours. 6. Osteoporosis with falls resulting in pelvic fracture and decreased mobility. Pain control will be opiates. Continue roxanol. 7. Deep venous thrombosis prophylaxis will be with Lovenox. 8. Patient is DO NOT RESUSCITATE status per her power of ip technology transactions attorney, her . TD: 08/03/2018 20:00 TEJ
[2018-08-04] MEDS: HYDROmorphone 1 MG/ML CARPUJECT IVP PRN ×4 (00:36→21:28)
[2018-08-04] MEDS: SODIUM CHLORIDE FLUSH 0.9% 10 ML SYRINGE IVP SCH ×3 (01:17→17:34)
[2018-08-04] MEDS: SODIUM CHLORIDE 0.9% 1,000 ML IV SCH ×2 (05:01→14:30)
[2018-08-04] MEDS: MEROPENEM 1 GM in SODIUM CHLORIDE 0.9% MINIBAG 100 ML IV SCH ×2 (05:01→17:34)
[2018-08-04] MEDS ORDERED: LIDOCAINE PATCH 5% TOP SCH (09:00)
[2018-08-04] MEDS: POLYETHYLENE GLYCOL 3350 17 GM PACKET PO SCH (10:20)
[2018-08-04] MEDS: SODIUM CHLORIDE FLUSH 0.9% 10 ML SYRINGE IVP PRN (17:34)
[2018-08-04] MEDS ORDERED: LOPERAMIDE 2 MG CAPSULE PO PRN (18:41)
[2018-08-04] MEDS ORDERED: ASPIRIN EC 325 MG TABLET PO PRN (18:41)
[2018-08-04] MEDS ORDERED: PPN (CLINIMIX E 4.25/5) 2,000 ML with MULTIVITAMIN 10 ML, TRACE ELEMENTS V CONC 1 ML IV ONE ×3 (19:00)
[2018-08-04] MEDS ORDERED: TPN (CLINIMIX E 5/15) 2,000 ML with MULTIVITAMIN 10 ML, TRACE ELEMENTS V CONC 1 ML IV SCH ×3 (19:00)
[2018-08-04] MEDS: LEVOTHYROXINE 88 MCG TABLET PO SCH (19:28)
[2018-08-04] MEDS: FAT EMULSION 20% 250 ML IV SCH (19:28)
[2018-08-04] MEDS: LIDOCAINE PATCH 5% TOP SCH (20:00)
[2018-08-04] MEDS: MIRTAZAPINE 15 MG TABLET PO SCH ×2 (20:01→21:28)
--- NOTE | 2018-08-04 20:27 | PROVIDER PROGRESS NOTE ---
Subjective - Prog Note Date Prog Note Date: 08/04/18 Prog Note Time: 20:25 - Subjective Subjective: reports that is just really been failing over the last several months. She is self-aware enough that her unhappiness and her failing status be comes a self-perpetuating problem with decreased p.o. intake, depression, anhedonia. Dementia has been slowly progressive. He wants to make sure that we discussed everything with him in terms of long-term decisions where quality of life needs to be taken into consideration. They may even consider declining certain treatments depending on how she is doing. He is even asking if hospice would be consideration for her in the near future. Current Medications - Current Medications Current Medications: Active Medications Aspirin (Ecotrin) 650 mg PO Q4H PRN PRN Reason: PAIN Clonazepam (Klonopin) 0.25 mg PO DAILY [facility] Ferrous Gluconate (Fergon) 324 mg PO BIDWM [facility] Hydromorphone HCl (Dilaudid Inj Carp) 1 mg IVP Q2HR PRN PRN Reason: Pain 8 to 10 Last Admin: 08/04/18 19:40 Dose: 1 mg Meropenem 1 gm/ Sodium (Chloride) 100 mls @ 200 mls/hr IV Q12H [facility] Last Infusion: 08/04/18 19:03 Dose: Infused Sodium Chloride (Normal Saline 0.9%) 1,000 mls @ 100 mls/hr IV .Q10H [facility] Last Admin: 08/04/18 14:30 Dose: 100 mls/hr Fat Emulsion Intravenous (Intralipid 20%) 250 mls @ 21 mls/hr IV Q24H [facility] Last Admin: 08/04/18 19:28 Dose: 21 mls/hr Multivitamins 10 ml/ Chromium/Copper/Manganese/Seleni/Zn 1 ml/ Amino Ac/Electrol/Dextrose /Calcium 2,011 mls @ 60 mls/hr IV Q24H [facility]; Protocol Multivitamins 10 ml/ Chromium/Copper/Manganese/Seleni/Zn 1 ml/ Amino Acids/Electrolytes/Dextrose 2,011 mls @ 60 mls/hr IV ONCE ONE; Protocol Stop: 08/06/18 04:30 Last Admin: 08/04/18 19:28 Dose: 60 mls/hr Levothyroxine Sodium (Synthroid) 88 mcg PO QDAC [facility] Last Admin: 08/04/18 19:28 Dose: 88 mcg Lidocaine (Lidoderm Patch) 1 patch TOP HS [facility] Last Admin: 08/04/18 20:00 Dose: 1 patch Loperamide HCl (Imodium) 2 mg PO Q4H PRN PRN Reason: Diarrhea Lorazepam (Ativan) 0.5 mg SL Q6H PRN PRN Reason: Anxiety Mirtazapine (Remeron) 7.5 mg PO [facility] Last Admin: 08/04/18 20:01 Dose: Not Given Ondansetron HCl (Zofran Inj) 4 mg IVP Q6HR PRN PRN Reason: Nausea / Vomiting Ondansetron HCl (Zofran Odt) 4 mg TL Q6HR PRN PRN Reason: Nausea / Vomiting Polyethylene Glycol (Miralax) 17 gm PO DAILY [facility] Last Admin: 08/04/18 10:20 Dose: Not Given Sodium Chloride (Normal Saline Flush 0.9%) 10 ml IVP PRN PRN PRN Reason: NEEDED PER PROVIDER ORDERS Last Admin: 08/04/18 17:34 Dose: 10 ml Sodium Chloride (Normal Saline Flush 0.9%) 10 ml IVP 0100,0900,1700 [facility] Last Admin: 08/04/18 17:34 Dose: 10 ml Aspirin [Aspirin EC] 650 mg PO .Q4-6H PRN 07/13/18 Clonazepam 0.25 mg PO DAILY 07/13/18 Lidocaine [Lidoderm] 1 patch TOP DAILY 07/13/18 traMADol [Ultram] 50 mg PO QID PRN 07/13/18 Objective - Vital Signs/Intake & Output Reviewed Vital Signs: Yes Vital Signs: Vital Signs x48h Temp Pulse Resp BP Pulse Ox 08/04/18 16:00 36.8 C 84 18 141/72 H 96 Intake & Output: Intake & Output 08/01/18 08/02/18 08/03/18 08/04/18 23:59 23:59 23:59 23:59 Intake Total 2800 2191.667 Output Total 300 2050 Balance 2500 141.667 - Objective General Appearance: positive: Alert, Mild distress, Other (5 foot inch female 54 kg BMI 23) Eyes Bilateral: positive: PERRL Neck: positive: No JVD Respiratory: positive: Chest non-tender. negative: Wheezes, Rales, Rhonchi Cardiovascular: positive: Regular rate & rhythm. negative: Gallop/S4, Friction rub Abdomen: positive: No organomegaly, No distention, Tenderness (Bilateral lower abdomen , right worse than left), Other (Hypoactive bowel sounds). 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 Sent home for outpatient management. Was doing well. Antibiotics stopped a few days ago. 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 Her is spoken to Dr. Hussein at length. Not sure if they want to progress to surgery at this time even though this an option. Plan: Feed the patient p.o. Continue meropenem (2) Protein-calorie malnutrition, moderate Impression: Continues from last admission. Her states that she is may be eating 2 to 300 becky a day at most right now Plan: PICC line consult with anesthesia TPN (3) Alzheimer's dementia Impression: This is to be taken into account as a quality of life indicator per her . We will follow his guidelines and her wishes. Qualifiers: Alzheimer's disease onset: unspecified onset Dementia behavioral disturbance: without behavioral disturbance Qualified Code(s): G30.9 - Alzheimer's disease, unspecified; F02.80 - Dementia in other diseases classified elsewhere without behavioral disturbance (4) Hypothyroidism Impression: I had held her hypothyroid medication thinking that we would not needed this admission. But her would really like her to be on her. As such we will resume that. Qualifiers: Hypothyroidism type: acquired Qualified Code(s): E03.9 - Hypothyroidism, unspecified (5) Lactic acid acidosis Impression: Continues in spite of antibiotics, IV fluids. There is no evidence of sepsis on exam and that she is afebrile, normotensive. Anion gap is high at 17. Carbon dioxide is 23. Continue IV fluids, antibiotics,
[2018-08-05] MEDS: SODIUM CHLORIDE FLUSH 0.9% 10 ML SYRINGE IVP SCH ×3 (01:00→15:42)
[2018-08-05] MEDS: MEROPENEM 1 GM in SODIUM CHLORIDE 0.9% MINIBAG 100 ML IV SCH ×2 (05:09→17:56)
[2018-08-05] MEDS: SODIUM CHLORIDE 0.9% 1,000 ML IV SCH ×2 (05:10→16:41)
[2018-08-05 05:16] LABS: BASOPHILS # (AUTO) 0.1 10^3/uL (0.0-0.1); BASOPHILS % (AUTO) 0.4 %; EOSINOPHILS # (AUTO) 0.2 10^3/uL (0.0-0.7); EOSINOPHILS % (AUTO) 1.6 %; HGB - HEMOGLOBIN 11.1 g/dL (12.0-16.0); LYMPHOCYTES # (AUTO) 2.8 10^3/uL (1.5-3.5); LYMPHOCYTES % (AUTO) 24.8 %; MEAN CORPUSCULAR HEMOGLOBIN 29.5 pg (27.0-31.0); MEAN CORPUSCULAR HGB CONC 32.8 g/dL (32.0-36.0); MEAN CORPUSCULAR VOLUME 89.9 fL (81.0-99.0); MEAN PLATELET VOLUME 9.6 fL (7.9-10.8); MONOCYTES # (AUTO) 0.9 10^3/uL (0.0-1.0); NEUTROPHILS # (AUTO) 7.4 10^3/uL (1.5-6.6); NEUTROPHILS % (AUTO) 64.5 %; PLT - PLATELET COUNT 313 10^3/uL (130-450); RED BLOOD COUNT 3.76 10^6/uL (4.20-5.40); RED CELL DISTRIBUTION WIDTH 14.6 % (12.0-15.0); WHITE BLOOD COUNT 11.5 x10^3/uL (4.8-10.8)
[2018-08-05 05:23] LABS: INR 1.4 (0.8-1.2); PT - PROTHROMBIN TIME 15.5 secs (9.9-12.6)
[2018-08-05 05:31] LABS: ALBUMIN 2.7 g/dL (3.2-5.5); ALBUMIN/GLOBULIN RATIO 0.8 (1.0-2.2); BILIRUBIN,TOTAL 0.3 mg/dL (0.2-1.0); CALCIUM 8.6 mg/dL (8.5-10.3); CREATININE 0.4 mg/dL (0.4-1.0); PHOSPHORUS 3.1 mg/dL (2.5-4.6); TOTAL PROTEIN 6.3 g/dL (6.7-8.2)
[2018-08-05] MEDS: LEVOTHYROXINE 88 MCG TABLET PO SCH (05:59)
[2018-08-05] MEDS: FERROUS GLUCONATE 324 MG TABLET PO SCH ×2 (08:42→17:49)
[2018-08-05] MEDS: clonazePAM 0.5 MG TABLET PO SCH (08:42)
[2018-08-05] MEDS: POLYETHYLENE GLYCOL 3350 17 GM PACKET PO SCH (08:42)
[2018-08-05] MEDS: MORPHINE ER 15 MG TABLET PO SCH ×2 (09:21→22:09)
[2018-08-05] MEDS: POTASSIUM CHLOR 10 MEQ/100 ML 10 MEQ/100 ML BAG IV SCH ×4 (09:21→14:05)
[2018-08-05] MEDS ORDERED: SODIUM CHLORIDE FLUSH 0.9% 10 ML SYRINGE IVP PRN (10:56)
--- NOTE | 2018-08-05 10:56 | ANESTHESIA PROCEDURE NOTE ---
Consent for Procedure(s) Verified and Reviewed: Yes Height and Weight: Height 5 ft Weight (kg) 54.5 kg Body Mass Index 23.2 Vital Signs: Temp Pulse Resp BP Pulse Ox 37 C 82 16 136/71 H 97 08/05/18 07:35 08/05/18 07:35 08/05/18 07:35 08/05/18 07:35 08/05/18 07:35 Allergies nitrofurantoin macrocrystalline * [From Macrodantin] Allergy (Severe, Verified 07/13/18 10:34) Hives Sulfa (Sulfonamide Antibiotics) Allergy (Severe, Verified 07/13/18 10:34) Hives Requesting Provider: [facility] Location: [address] Procedure Start Time: 10:00 Anes. Procedure Stop Time: 10:38 Procedure Notes: Informed consent obtained from patients DPOA. Right arm was prepped with chlorhexadine. Full drape, sterile gown and gloves, mask were utilized. Timeout procedure completed at bedside. Ultrasound was used to image the right brachial vein and accessed with a 20G needle. The wire was advanced with ease. Sheath was inserted and a 5Fr PICC was inserted. Using teleflex 3cg, the tip was confirmed in the lower 1/3 of the SVC. Both ports aspirate blood and flush with ease. Trimmed length of the catheter was 37cm and there was 3cm exposed. All wires were out and accounted for. Patient tolerated well and dressing was applied.
--- NOTE | 2018-08-05 11:52 | PROVIDER PROGRESS NOTE ---
Subjective - Prog Note Date Prog Note Date: 08/05/18 Prog Note Time: 08:40 - Subjective Pt reports feeling: No change (Denies any abdominal pain and says she never really had any.) Subjective: Complaining of pain in her shoulders and neck, "my usual pain". says she doesn't like the IV dilaudid because it "hits her so hard". She has been on oral Morphine at home for quite some time and would prefer to continue this. Had a bowel movement yesterday. Abdomen is soft and only very minimally tender to palpation. Active bowel sounds. Lungs are clear bilaterally. CV: regular rate and rhythm Ext: no edema A/P: Will add oral extended release morphine twice daily in an attempt to improve pain control. Continue Merem PICC line has been scheduled for today. Objective - Vital Signs/Intake & Output Vital Signs: Vital Signs x48h Temp Pulse Resp BP Pulse Ox 08/05/18 07:35 37 C 82 16 136/71 H 97 Intake & Output: Intake & Output 08/02/18 08/03/18 08/04/18 08/05/18 23:59 23:59 23:59 23:59 Intake Total 2800 2928.334 768.333 Output Total 300 2950 300 Balance 2500 -21.666 468.333 - Lab Results Fish Bones: 08/05/18 04:55 08/05/18 04:55 Other Labs: Lab Results x24hrs 08/05/18 08/05/18 08/05/18 Range/Units 05:27 04:55 04:55 WBC (4.8-10.8) x10^3/uL RBC (4.20-5.40) 10^6/uL Hgb (12.0-16.0) g/dL Hct (37.0-47.0) % MCV (81.0-99.0) fL MCH (27.0-31.0) pg MCHC (32.0-36.0) g/dL RDW (12.0-15.0) % Plt Count (130-450) 10^3/uL MPV (7.9-10.8) fL Neut # (Auto) (1.5-6.6) 10^3/uL Lymph # (Auto) (1.5-3.5) 10^3/uL Lincoln # (Auto) (0.0-1.0) 10^3/uL Eos # (Auto) (0.0-0.7) 10^3/uL Baso # (Auto) (0.0-0.1) 10^3/uL Absolute Nucleated RBC x10^3/uL Nucleated RBC % /100WBC PT (9.9-12.6) secs INR (0.8-1.2) Sodium 134 L (135-145) mmol/L Potassium 3.1 L (3.5-5.0) mmol/L Chloride 99 L (101-111) mmol/L Carbon Dioxide 25 (21-32) mmol/L Anion Gap 10.0 (6-13) BUN 8 (6-20) mg/dL Creatinine 0.4 (0.4-1.0) mg/dL Estimated GFR (MDRD) 154 (>89) Glucose 122 H (70-100) mg/dL POC Whole Bld Glucose 121 H (70 - 100) mg/dL Lactic Acid 0.9 (0.5-2.2) mmol/L Calcium 8.6 (8.5-10.3) mg/dL Phosphorus 3.1 (2.5-4.6) mg/dL Magnesium 2.0 (1.7-2.8) mg/dL Total Bilirubin 0.3 (0.2-1.0) mg/dL AST 19 (10-42) IU/L ALT 11 (10-60) IU/L Alkaline Phosphatase 90 (42-121) IU/L Total Protein 6.3 L (6.7-8.2) g/dL Albumin 2.7 L (3.2-5.5) g/dL Globulin 3.6 (2.1-4.2) g/dL Albumin/Globulin Ratio 0.8 L (1.0-2.2) Prealbumin 13 L (18-45) mg/dL Triglycerides 126 ( - 149) mg/dL 08/05/18 08/05/18 08/05/18 Range/Units 04:55 04:55 01:21 WBC 11.5 H (4.8-10.8) x10^3/uL RBC 3.76 L (4.20-5.40) 10^6/uL Hgb 11.1 L (12.0-16.0) g/dL Hct 33.8 L (37.0-47.0) % MCV 89.9 (81.0-99.0) fL MCH 29.5 (27.0-31.0) pg MCHC 32.8 (32.0-36.0) g/dL RDW 14.6 (12.0-15.0) % Plt Count 313 (130-450) 10^3/uL MPV 9.6 (7.9-10.8) fL Neut # (Auto) 7.4 H (1.5-6.6) 10^3/uL Lymph # (Auto) 2.8 (1.5-3.5) 10^3/uL Lincoln # (Auto) 0.9 (0.0-1.0) 10^3/uL Eos # (Auto) 0.2 (0.0-0.7) 10^3/uL Baso # (Auto) 0.1 (0.0-0.1) 10^3/uL Absolute Nucleated RBC 0.00 x10^3/uL Nucleated RBC % 0.0 /100WBC PT 15.5 H (9.9-12.6) secs INR 1.4 H (0.8-1.2) Sodium (135-145) mmol/L Potassium (3.5-5.0) mmol/L Chloride (101-111) mmol/L Carbon Dioxide (21-32) mmol/L Anion Gap (6-13) BUN (6-20) mg/dL Creatinine (0.4-1.0) mg/dL Estimated GFR (MDRD) (>89) Glucose (70-100) mg/dL POC Whole Bld Glucose 109 H (70 - 100) mg/dL Lactic Acid (0.5-2.2) mmol/L Calcium (8.5-10.3) mg/dL Phosphorus (2.5-4.6) mg/dL Magnesium (1.7-2.8) mg/dL Total Bilirubin (0.2-1.0) mg/dL AST (10-42) IU/L ALT (10-60) IU/L Alkaline Phosphatase (42-121) IU/L Total Protein (6.7-8.2) g/dL Albumin (3.2-5.5) g/dL Globulin (2.1-4.2) g/dL Albumin/Globulin Ratio (1.0-2.2) Prealbumin (18-45) mg/dL Triglycerides ( - 149) mg/dL 08/04/18 Range/Units 20:54 WBC (4.8-10.8) x10^3/uL RBC (4.20-5.40) 10^6/uL Hgb (12.0-16.0) g/dL Hct (37.0-47.0) % MCV (81.0-99.0) fL MCH (27.0-31.0) pg MCHC (32.0-36.0) g/dL RDW (12.0-15.0) % Plt Count (130-450) 10^3/uL MPV (7.9-10.8) fL Neut # (Auto) (1.5-6.6) 10^3/uL Lymph # (Auto) (1.5-3.5) 10^3/uL Lincoln # (Auto) (0.0-1.0) 10^3/uL Eos # (Auto) (0.0-0.7) 10^3/uL Baso # (Auto) (0.0-0.1) 10^3/uL Absolute Nucleated RBC x10^3/uL Nucleated RBC % /100WBC PT (9.9-12.6) secs INR (0.8-1.2) Sodium (135-145) mmol/L Potassium (3.5-5.0) mmol/L Chloride (101-111) mmol/L Carbon Dioxide (21-32) mmol/L Anion Gap (6-13) BUN (6-20) mg/dL Creatinine (0.4-1.0) mg/dL Estimated GFR (MDRD) (>89) Glucose (70-100) mg/dL POC Whole Bld Glucose (70 - 100) mg/dL Lactic Acid 1.7 (0.5-2.2) mmol/L Calcium (8.5-10.3) mg/dL Phosphorus (2.5-4.6) mg/dL Magnesium (1.7-2.8) mg/dL Total Bilirubin (0.2-1.0) mg/dL AST (10-42) IU/L ALT (10-60) IU/L Alkaline Phosphatase (42-121) IU/L Total Protein (6.7-8.2) g/dL Albumin (3.2-5.5) g/dL Globulin (2.1-4.2) g/dL Albumin/Globulin Ratio (1.0-2.2) Prealbumin (18-45) mg/dL Triglycerides ( - 149) mg/dL Sepsis Event Note (H) - Evaluation Possible source of Sepsis: positive: GI tract/intra-abdominal
[2018-08-05] MEDS: HYDROmorphone 1 MG/ML CARPUJECT IVP PRN (15:42)
--- NOTE | 2018-08-05 16:00 | PROVIDER PROGRESS NOTE ---
Subjective - Prog Note Date Prog Note Date: 08/05/18 Prog Note Time: 15:58 - Subjective Pt reports feeling: No change Subjective: Continues to have the same lower abdominal pain. it is not as stabbing and more dull but still present. Does not feel like she is passing any gas and has had a bowel movement Current Medications - Current Medications Current Medications: Active Medications Aspirin (Ecotrin) 650 mg PO Q4H PRN PRN Reason: PAIN Clonazepam (Klonopin) 0.25 mg PO DAILY [facility] Last Admin: 08/05/18 08:42 Dose: 0.25 mg Ferrous Gluconate (Fergon) 324 mg PO BIDWM [facility] Last Admin: 08/05/18 08:42 Dose: 324 mg Hydromorphone HCl (Dilaudid Inj Carp) 1 mg IVP Q2HR PRN PRN Reason: Pain 8 to 10 Last Admin: 08/05/18 15:42 Dose: 1 mg Meropenem 1 gm/ Sodium (Chloride) 100 mls @ 200 mls/hr IV Q12H [facility] Last Infusion: 08/05/18 05:44 Dose: Infused Sodium Chloride (Normal Saline 0.9%) 1,000 mls @ 100 mls/hr IV .Q10H [facility] Last Admin: 08/05/18 05:10 Dose: 100 mls/hr Fat Emulsion Intravenous (Intralipid 20%) 250 mls @ 21 mls/hr IV Q24H [facility] Last Infusion: 08/05/18 07:38 Dose: Infused Multivitamins 10 ml/ Chromium/Copper/Manganese/Seleni/Zn 1 ml/ Amino Ac/Electrol/Dextrose /Calcium 2,011 mls @ 60 mls/hr IV Q24H [facility]; Protocol Multivitamins 10 ml/ Chromium/Copper/Manganese/Seleni/Zn 1 ml/ Amino Acids/Electrolytes/Dextrose 2,011 mls @ 60 mls/hr IV ONCE ONE; Protocol Stop: 08/06/18 04:30 Last Admin: 08/04/18 19:28 Dose: 60 mls/hr Levothyroxine Sodium (Synthroid) 88 mcg PO QDAC [facility] Last Admin: 08/05/18 05:59 Dose: 88 mcg Lidocaine (Lidoderm Patch) 1 patch TOP HS [facility] Last Admin: 08/04/18 20:00 Dose: 1 patch Loperamide HCl (Imodium) 2 mg PO Q4H PRN PRN Reason: Diarrhea Lorazepam (Ativan) 0.5 mg SL Q6H PRN PRN Reason: Anxiety Mirtazapine (Remeron) 7.5 mg PO HS [facility] Last Admin: 08/04/18 21:28 Dose: 7.5 mg Morphine Sulfate () 15 mg PO BID [facility] Last Admin: 08/05/18 09:21 Dose: 15 mg Ondansetron HCl (Zofran Inj) 4 mg IVP Q6HR PRN PRN Reason: Nausea / Vomiting Ondansetron HCl (Zofran Odt) 4 mg TL Q6HR PRN PRN Reason: Nausea / Vomiting Polyethylene Glycol (Miralax) 17 gm PO DAILY [facility] Last Admin: 08/05/18 08:42 Dose: 17 gm Sodium Chloride (Normal Saline Flush 0.9%) 10 ml IVP PRN PRN PRN Reason: NEEDED PER PROVIDER ORDERS Last Admin: 08/04/18 17:34 Dose: 10 ml Sodium Chloride (Normal Saline Flush 0.9%) 10 ml IVP 0100,0900,1700 [facility] Last Admin: 08/05/18 15:42 Dose: 10 ml Sodium Chloride (Normal Saline Flush 0.9%) 10 ml IVP PRN PRN PRN Reason: NEEDED PER PROVIDER ORDERS Aspirin [Aspirin EC] 650 mg PO .Q4-6H PRN 07/13/18 Clonazepam 0.25 mg PO DAILY 07/13/18 Lidocaine [Lidoderm] 1 patch TOP DAILY 07/13/18 traMADol [Ultram] 50 mg PO QID PRN 07/13/18 Objective - Vital Signs/Intake & Output Reviewed Vital Signs: Yes Vital Signs: Vital Signs x48h Temp Pulse Resp BP Pulse Ox 08/05/18 15:39 36.7 C 78 18 135/68 H 97 Intake & Output: Intake & Output 08/02/18 08/03/18 08/04/18 08/05/18 23:59 23:59 23:59 23:59 Intake Total 2800 2928.334 1162.083 Output Total 300 2950 1125 Balance 2500 -21.666 37.083 - Objective General Appearance: positive: Alert, Mild distress, Other (Apathetic and withdrawn, vague affect) Eyes Bilateral: positive: PERRL, EOMI ENT: positive: Pharynx nml Neck: positive: No JVD Respiratory: positive: Chest non-tender. negative: Wheezes, Rales, Rhonchi Cardiovascular: positive: Regular rate & rhythm. negative: Gallop/S4, Friction rub Abdomen: positive: No organomegaly, Tenderness (B/L lower with Left > right), Other (hypoactive). negative: Guarding, Rebound Skin: positive: Warm, Dry Extremities: positive: Full ROM, No pedal edema Neurologic/Psychiatric: positive: Oriented x3, CN's nml (2-12), Motor nml, Weakness - Lab Results Fish Bones: 08/05/18 04:55 08/05/18 04:55 Other Labs: Lab Results x24hrs 08/05/18 08/05/18 08/05/18 Range/Units 05:27 04:55 04:55 WBC (4.8-10.8) x10^3/uL RBC (4.20-5.40) 10^6/uL Hgb (12.0-16.0) g/dL Hct (37.0-47.0) % MCV (81.0-99.0) fL MCH (27.0-31.0) pg MCHC (32.0-36.0) g/dL RDW (12.0-15.0) % Plt Count (130-450) 10^3/uL MPV (7.9-10.8) fL Neut # (Auto) (1.5-6.6) 10^3/uL Lymph # (Auto) (1.5-3.5) 10^3/uL [place]er # (Auto) (0.0-1.0) 10^3/uL Eos # (Auto) (0.0-0.7) 10^3/uL Baso # (Auto) (0.0-0.1) 10^3/uL Absolute Nucleated RBC x10^3/uL Nucleated RBC % /100WBC PT (9.9-12.6) secs INR (0.8-1.2) Sodium 134 L (135-145) mmol/L Potassium 3.1 L (3.5-5.0) mmol/L Chloride 99 L (101-111) mmol/L Carbon Dioxide 25 (21-32) mmol/L Anion Gap 10.0 (6-13) BUN 8 (6-20) mg/dL Creatinine 0.4 (0.4-1.0) mg/dL Estimated GFR (MDRD) 154 (>89) Glucose 122 H (70-100) mg/dL POC Whole Bld Glucose 121 H (70 - 100) mg/dL Lactic Acid 0.9 (0.5-2.2) mmol/L Calcium 8.6 (8.5-10.3) mg/dL Phosphorus 3.1 (2.5-4.6) mg/dL Magnesium 2.0 (1.7-2.8) mg/dL Total Bilirubin 0.3 (0.2-1.0) mg/dL AST 19 (10-42) IU/L ALT 11 (10-60) IU/L Alkaline Phosphatase 90 (42-121) IU/L Total Protein 6.3 L (6.7-8.2) g/dL Albumin 2.7 L (3.2-5.5) g/dL Globulin 3.6 (2.1-4.2) g/dL Albumin/Globulin Ratio 0.8 L (1.0-2.2) Prealbumin 13 L (18-45) mg/dL Triglycerides 126 ( - 149) mg/dL 08/05/18 08/05/18 08/05/18 Range/Units 04:55 04:55 01:21 WBC 11.5 H (4.8-10.8) x10^3/uL RBC 3.76 L (4.20-5.40) 10^6/uL Hgb 11.1 L (12.0-16.0) g/dL Hct 33.8 L (37.0-47.0) % MCV 89.9 (81.0-99.0) fL MCH 29.5 (27.0-31.0) pg MCHC 32.8 (32.0-36.0) g/dL RDW 14.6 (12.0-15.0) % Plt Count 313 (130-450) 10^3/uL MPV 9.6 (7.9-10.8) fL Neut # (Auto) 7.4 H (1.5-6.6) 10^3/uL Lymph # (Auto) 2.8 (1.5-3.5) 10^3/uL [place] # (Auto) 0.9 (0.0-1.0) 10^3/uL Eos # (Auto) 0.2 (0.0-0.7) 10^3/uL Baso # (Auto) 0.1 (0.0-0.1) 10^3/uL Absolute Nucleated RBC 0.00 x10^3/uL Nucleated RBC % 0.0 /100WBC PT 15.5 H (9.9-12.6) secs INR 1.4 H (0.8-1.2) Sodium (135-145) mmol/L Potassium (3.5-5.0) mmol/L Chloride (101-111) mmol/L Carbon Dioxide (21-32) mmol/L Anion Gap (6-13) BUN (6-20) mg/dL Creatinine (0.4-1.0) mg/dL Estimated GFR (MDRD) (>89) Glucose (70-100) mg/dL POC Whole Bld Glucose 109 H (70 - 100) mg/dL Lactic Acid (0.5-2.2) mmol/L Calcium (8.5-10.3) mg/dL Phosphorus (2.5-4.6) mg/dL Magnesium (1.7-2.8) mg/dL Total Bilirubin (0.2-1.0) mg/dL AST (10-42) IU/L ALT (10-60) IU/L Alkaline Phosphatase (42-121) IU/L Total Protein (6.7-8.2) g/dL Albumin (3.2-5.5) g/dL Globulin (2.1-4.2) g/dL Albumin/Globulin Ratio (1.0-2.2) Prealbumin (18-45) mg/dL Triglycerides ( - 149) mg/dL 08/04/18 Range/Units 20:54 WBC (4.8-10.8) x10^3/uL RBC (4.20-5.40) 10^6/uL Hgb (12.0-16.0) g/dL Hct (37.0-47.0) % MCV (81.0-99.0) fL MCH (27.0-31.0) pg MCHC (32.0-36.0) g/dL RDW (12.0-15.0) % Plt Count (130-450) 10^3/uL MPV (7.9-10.8) fL Neut # (Auto) (1.5-6.6) 10^3/uL Lymph # (Auto) (1.5-3.5) 10^3/uL [place]er # (Auto) (0.0-1.0) 10^3/uL Eos # (Auto) (0.0-0.7) 10^3/uL Baso # (Auto) (0.0-0.1) 10^3/uL Absolute Nucleated RBC x10^3/uL Nucleated RBC % /100WBC PT (9.9-12.6) secs INR (0.8-1.2) Sodium (135-145) mmol/L Potassium (3.5-5.0) mmol/L Chloride (101-111) mmol/L Carbon Dioxide (21-32) mmol/L Anion Gap (6-13) BUN (6-20) mg/dL Creatinine (0.4-1.0) mg/dL Estimated GFR (MDRD) (>89) Glucose (70-100) mg/dL POC Whole Bld Glucose (70 - 100) mg/dL Lactic Acid 1.7 (0.5-2.2) mmol/L Calcium (8.5-10.3) mg/dL Phosphorus (2.5-4.6) mg/dL Magnesium (1.7-2.8) mg/dL Total Bilirubin (0.2-1.0) mg/dL AST (10-42) IU/L ALT (10-60) IU/L Alkaline Phosphatase (42-121) IU/L Total Protein (6.7-8.2) g/dL Albumin (3.2-5.5) g/dL Globulin (2.1-4.2) g/dL Albumin/Globulin Ratio (1.0-2.2) Prealbumin (18-45) mg/dL Triglycerides ( - 149) mg/dL ABX Reporting Has patient been on IV antibiotics over the past 48 hours?: Yes Sepsis Event Note (H) - Evaluation Possible source of Sepsis: positive: GI tract/intra-abdominal Assessment/Plan - Problem List (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 Sent home for outpatient management. Was doing well. Antibiotics stopped a few days ago. 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 Her is spoken to Dr. Hussein at length. Not sure if they want to progress to surgery at this time even though this an option. Plan: Feed the patient clear liguids. Continue meropenem, Day #3 (2) Protein-calorie malnutrition, moderate Impression: Continues from last admission. Her states that she is may be eating 2 to 300 becky a day at most right now Plan: PICC line done today TPN ongoing. (3) Alzheimer's dementia Impression: This is to be taken into account as a quality of life indicator per her . We will follow his guidelines and her wishes. Qualifiers: Alzheimer's disease onset: unspecified onset Dementia behavioral disturbance: without behavioral disturbance Qualified Code(s): G30.9 - Alzheimer's disease, unspecified; F02.80 - Dementia in other diseases classified elsewhere without behavioral disturbance (4) Hypothyroidism Impression: I had held her hypothyroid medication thinking that we would not needed this admission. But her would really like her to be on her. As such we will resume that. Qualifiers: Hypothyroidism type: acquired Qualified Code(s): E03.9 - Hypothyroidism, unspecified (5) Lactic acid acidosis Impression: Continues in spite of antibiotics, IV fluids. There is no evidence of sepsis on exam and that she is afebrile, normotensive. Anion gap is high at 17. Carbon dioxide is 23. (6) Hypokalemia supplement IV since doesn't like po. recheck daily.
[2018-08-05] MEDS: FAT EMULSION 20% 250 ML IV SCH (20:00)
[2018-08-05] MEDS: TPN (CLINIMIX E 5/15) 2,000 ML with MULTIVITAMIN 10 ML, TRACE ELEMENTS V CONC 1 ML IV SCH ×3 (20:00)
[2018-08-05] MEDS: SODIUM CHLORIDE FLUSH 0.9% 10 ML SYRINGE IVP PRN (20:51)
[2018-08-05] MEDS: LIDOCAINE PATCH 5% TOP SCH (20:51)
[2018-08-05] MEDS: MIRTAZAPINE 15 MG TABLET PO SCH (22:09)
[2018-08-05] MEDS ORDERED: HYDROCORTISONE 25 MG SUPPOSITORY PR PRN (22:38)
[2018-08-06] MEDS: SODIUM CHLORIDE FLUSH 0.9% 10 ML SYRINGE IVP SCH ×3 (04:05→16:49)
[2018-08-06] MEDS: SODIUM CHLORIDE 0.9% 1,000 ML IV SCH ×3 (04:05→14:45)
[2018-08-06] MEDS: MEROPENEM 1 GM in SODIUM CHLORIDE 0.9% MINIBAG 100 ML IV SCH ×2 (05:38→18:03)
[2018-08-06] MEDS: LEVOTHYROXINE 88 MCG TABLET PO SCH (06:09)
[2018-08-06] MEDS: FERROUS GLUCONATE 324 MG TABLET PO SCH ×2 (09:05→16:49)
[2018-08-06] MEDS: MORPHINE ER 15 MG TABLET PO SCH ×2 (09:05→21:32)
[2018-08-06] MEDS: clonazePAM 0.5 MG TABLET PO SCH (09:05)
[2018-08-06] MEDS: POLYETHYLENE GLYCOL 3350 17 GM PACKET PO SCH (09:08)
--- NOTE | 2018-08-06 10:37 | PROVIDER PROGRESS NOTE ---
Subjective - Prog Note Date Prog Note Date: 08/06/18 Prog Note Time: 10:35 - Subjective Pt reports feeling: Improved Subjective: Patient reports she thinks her pain was a little better with the oral morphine. Her relates that she had a couple of bowel movements yesterday but has not had one yet this morning. He adds that she ate all of her Jell-O and all of her chicken broth and has taken in more food orally in the last 24 hours then he has seen her taken in over a month.They both seem to be generally a little more encouraged.He wants to know what the next step is. He says they have been thinking about the options that Dr Hussein presented to them and he is detailed conversation a couple of days ago. Objective - Vital Signs/Intake & Output Reviewed Vital Signs: Yes Vital Signs: Vital Signs x48h Temp Pulse Resp BP Pulse Ox 08/06/18 07:51 37.1 C 81 14 127/74 97 Intake & Output: Intake & Output 08/03/18 08/04/18 08/05/18 08/06/18 23:59 23:59 23:59 23:59 Intake Total 2800 2928.334 3478.150 3358.933 Output Total 300 2950 3675 550 Balance 2500 -21.666 -569.498 8405.933 - Objective General Appearance: positive: No acute distress Eyes Bilateral: positive: Normal inspection, PERRL, EOMI ENT: positive: ENT inspection nml, No signs of dehydration Neck: positive: No JVD, Trachea midline Respiratory: positive: Chest non-tender, Breath sounds nml Cardiovascular: positive: Regular rate & rhythm Abdomen: positive: Nml bowel sounds, Other (Very minimal tenderness to palpation in bilateral lower quadrants. Perhaps a little worse on the left than the right but minimal bilaterally.) Skin: positive: Color nml Extremities: positive: Non-tender - Lab Results Fish Bones: 08/05/18 04:55 08/05/18 04:55 ABX Reporting Has patient been on IV antibiotics over the past 48 hours?: Yes Sepsis Event Note (H) - Evaluation Possible source of Sepsis: positive: GI tract/intra-abdominal Assessment/Plan - Problem List (1) Diverticular disease of intestine with perforation and abscess Impression: PICC line was placed yesterday and TPN continues. She is tolerating more p.o. and could conceivably eat a regular diet. his office has been directly involved and had in-depth discussions with his family regarding their options. They have given it consideration and are considering diverting ostomy. He will be back tomorrow to make more definitive recommendations and possible surgical plans.
[2018-08-06] MEDS ORDERED: PROCHLORPERAZINE 10 MG/2 ML VIAL IVP PRN (11:29)
[2018-08-06] MEDS ORDERED: HALOPERIDOL 5 MG/ML VIAL IVP ONE (11:29)
--- NOTE | 2018-08-06 12:03 | PROVIDER PROGRESS NOTE ---
Subjective - Prog Note Date Prog Note Date: 08/06/18 Prog Note Time: 12:01 - Subjective Subjective: Still has pain over the left lower quadrant. Generally feels miserable, tired. But there is no danny emesis. No fevers no chills no rigors. She lays in bed most the day and has yet to get out of bed since she has been here. has been vigilant at the bedside on a daily basis. He is starting to realize that he is exhausted. Last 3 weeks of taking a lot out of them. He thought he could take care of her at home by himself but it is just too much for him. He does have 3 daughters, but each of them have their own problems and their own illnesses and he would rather just higher support or get support for his via their insurance benefits. Current Medications - Current Medications Current Medications: Active Medications Aspirin (Ecotrin) 650 mg PO Q4H PRN PRN Reason: PAIN Last Admin: 08/05/18 17:49 Dose: 650 mg Clonazepam (Klonopin) 0.25 mg PO DAILY [facility] Last Admin: 08/06/18 09:05 Dose: 0.25 mg Ferrous Gluconate (Fergon) 324 mg PO BIDWM [facility] Last Admin: 08/06/18 09:05 Dose: 324 mg Hydrocortisone (Anusol-Hc) 25 mg [place] BID PRN PRN Reason: Hemorrhoids Hydromorphone HCl (Dilaudid Inj Carp) 1 mg IVP Q2HR PRN PRN Reason: Pain 8 to 10 Last Admin: 08/05/18 15:42 Dose: 1 mg Meropenem 1 gm/ Sodium (Chloride) 100 mls @ 200 mls/hr IV Q12H [facility] Last Infusion: 08/06/18 06:08 Dose: Infused Sodium Chloride (Normal Saline 0.9%) 1,000 mls @ 100 mls/hr IV .Q10H [facility] Last Admin: 08/06/18 04:06 Dose: Not Given Fat Emulsion Intravenous (Intralipid 20%) 250 mls @ 21 mls/hr IV Q24H [facility] Last Infusion: 08/06/18 07:55 Dose: Infused Multivitamins 10 ml/ Chromium/Copper/Manganese/Seleni/Zn 1 ml/ Amino Ac/Electrol/Dextrose /Calcium 2,011 mls @ 60 mls/hr IV Q24H [facility]; Protocol Last Infusion: 08/05/18 22:24 Dose: 60 mls/hr Levothyroxine Sodium (Synthroid) 88 mcg PO QDAC [facility] Last Admin: 08/06/18 06:09 Dose: 88 mcg Lidocaine (Lidoderm Patch) 1 patch TOP HS [facility] Last Admin: 08/05/18 20:51 Dose: 1 patch Loperamide HCl (Imodium) 2 mg PO Q4H PRN PRN Reason: Diarrhea Lorazepam (Ativan) 0.5 mg SL Q6H PRN PRN Reason: Anxiety Mirtazapine (Remeron) 7.5 mg PO HS [facility] Last Admin: 08/05/18 22:09 Dose: 7.5 mg Morphine Sulfate () 15 mg PO BID [facility] Last Admin: 08/06/18 09:05 Dose: 15 mg Ondansetron HCl (Zofran Inj) 4 mg IVP Q6HR PRN PRN Reason: Nausea / Vomiting Ondansetron HCl (Zofran Odt) 4 mg TL Q6HR PRN PRN Reason: Nausea / Vomiting Polyethylene Glycol (Miralax) 17 gm PO DAILY [facility] Last Admin: 08/06/18 09:08 Dose: 17 gm Prochlorperazine Edisylate (Compazine Inj) 10 mg IVP Q4HR PRN PRN Reason: Nausea / Vomiting Sodium Chloride (Normal Saline Flush 0.9%) 10 ml IVP PRN PRN PRN Reason: NEEDED PER PROVIDER ORDERS Last Admin: 08/05/18 20:51 Dose: 10 ml Sodium Chloride (Normal Saline Flush 0.9%) 10 ml IVP 0100,0900,1700 [facility] Last Admin: 08/06/18 09:08 Dose: 10 ml Sodium Chloride (Normal Saline Flush 0.9%) 10 ml IVP PRN PRN PRN Reason: NEEDED PER PROVIDER ORDERS Tramadol HCl (Ultram) 50 mg PO Q4HR PRN PRN Reason: PAIN Aspirin [Aspirin EC] 650 mg PO .Q4-6H PRN 07/13/18 Clonazepam 0.25 mg PO DAILY 07/13/18 Lidocaine [Lidoderm] 1 patch TOP DAILY 07/13/18 traMADol [Ultram] 50 mg PO QID PRN 07/13/18 Objective - Vital Signs/Intake & Output Reviewed Vital Signs: Yes Vital Signs: Vital Signs x48h Temp Pulse Resp BP Pulse Ox 08/06/18 07:51 37.1 C 81 14 127/74 97 Intake & Output: Intake & Output 08/03/18 08/04/18 08/05/18 08/06/18 23:59 23:59 23:59 23:59 Intake Total 2800 2928.334 3478.150 3358.933 Output Total 300 2950 3675 550 Balance 2500 -21.666 -765.349 7768.933 - Objective General Appearance: positive: Other (Very quiet, withdrawn, almost anhedonic masked fascies, no acute distress) Eyes Bilateral: positive: PERRL, EOMI ENT: positive: No signs of dehydration Neck: positive: No JVD. negative: Stiff neck, Carotid bruit Respiratory: positive: Chest non-tender. negative: Wheezes, Rales, Rhonchi Cardiovascular: positive: Regular rate & rhythm. negative: Gallop/S4, Friction rub Abdomen: positive: No distention, Tenderness (LLQ), Other (hypoactive bowel sounds.). negative: Guarding, Rebound Skin: positive: Warm, Dry Extremities: positive: Full ROM, No pedal edema Neurologic/Psychiatric: positive: CN's nml (2-12), Motor nml, Disoriented to time, Weakness - Lab Results Fish Bones: 08/05/18 04:55 08/05/18 04:55 ABX Reporting Has patient been on IV antibiotics over the past 48 hours?: Yes Sepsis Event Note (H) - Evaluation Possible source of Sepsis: positive: GI tract/intra-abdominal Assessment/Plan - Problem List (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 Sent home for outpatient management. Was doing well. Antibiotics stopped a few days ago. 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 Her is spoken to Dr. Hussein at length. Not sure if they want to progress to surgery at this time even though this an option. Options: 1. No surgery at all and with time, antibiotics, and waiting this may resolve 2. Diverting loop colostomy 3. Colectomy, ostomy, then reconnection. This surgery is by far the most extensive, and because of her nutritional status the most risky. Plan: Feed the patient clear liguids. Right now the patient's , who is also a surgeon, he is leaning toward option #1. This is going to take some time and patients. She is on TPN and antibiotics. He is amenable to her being transferred to a [facility] for [facility]-term [facility] therapy. Continue meropenem, Day #4 Physical therapy evaluation (2) Protein-calorie malnutrition, moderate Impression: Continues from last admission. Her states that she is may be eating 2 to 300 becky a day at most right now Plan: PICC line done and TPN ongoing. (3) Alzheimer's dementia Impression: This is to be taken into account as a quality of life indicator per her . We will follow his guidelines and her wishes. Qualifiers: Alzheimer's disease onset: unspecified onset Dementia behavioral disturbance: without behavioral disturbance Qualified Code(s): G30.9 - Alzheimer's disease, unspecified; F02.80 - Dementia in other diseases classified elsewhere without behavioral disturbance (4) Hypothyroidism Impression: I had held her hypothyroid medication thinking that we would not needed this admission. But her would really like her to be on her. As such we will resume that. Qualifiers: Hypothyroidism type: acquired Qualified Code(s): E03.9 - Hypothyroidism, unspecified (5) Lactic acid acidosis Impression: Continued for 48 hours in spite of antibiotics, IV fluids. Resolved now. There is no evidence of sepsis on exam and that she is afebrile, normotensive. (6) Hypokalemia supplement IV since doesn't like po. recheck daily.
[2018-08-06 13:05] LABS: ALBUMIN 2.5 g/dL (3.2-5.5); ALBUMIN/GLOBULIN RATIO 0.8 (1.0-2.2); ALKALINE PHOSPHATASE 83 IU/L (42-121); ALT ALANINE AMINOTRANSFERASE < 10 IU/L (10-60); AST ASPARTATE AMINOTRANSFERASE 18 IU/L (10-42); BILIRUBIN,TOTAL 0.5 mg/dL (0.2-1.0); BUN - BLOOD UREA NITROGEN 10 mg/dL (6-20); CALCIUM 7.9 mg/dL (8.5-10.3); CARBON DIOXIDE - CO2 23 mmol/L (21-32); CHLORIDE 102 mmol/L (101-111); CREATININE 0.4 mg/dL (0.4-1.0); GFR - MDRD 154 (>89); GLUCOSE 108 mg/dL (70-100); SODIUM 134 mmol/L (135-145); TOTAL PROTEIN 5.8 g/dL (6.7-8.2)
[2018-08-06] MEDS: traMADol 50 MG TABLET PO PRN (15:56)
[2018-08-06] MEDS: FAT EMULSION 20% 250 ML IV SCH (19:29)
[2018-08-06] MEDS: TPN (CLINIMIX E 5/15) 2,000 ML with MULTIVITAMIN 10 ML, TRACE ELEMENTS V CONC 1 ML IV SCH ×3 (19:29)
[2018-08-06] MEDS: SODIUM CHLORIDE FLUSH 0.9% 10 ML SYRINGE IVP PRN (19:30)
[2018-08-06] MEDS: LIDOCAINE PATCH 5% TOP SCH (19:37)
[2018-08-06] MEDS: MIRTAZAPINE 15 MG TABLET PO SCH (21:32)
[2018-08-07] MEDS: traMADol 50 MG TABLET PO PRN (00:12)
[2018-08-07] MEDS: SODIUM CHLORIDE FLUSH 0.9% 10 ML SYRINGE IVP SCH ×3 (00:17→17:28)
[2018-08-07] MEDS: SODIUM CHLORIDE 0.9% 1,000 ML IV SCH ×3 (01:19→22:34)
[2018-08-07] MEDS: LEVOTHYROXINE 88 MCG TABLET PO SCH (06:17)
[2018-08-07] MEDS: MEROPENEM 1 GM in SODIUM CHLORIDE 0.9% MINIBAG 100 ML IV SCH ×2 (06:17→17:46)
[2018-08-07] MEDS: ONDANSETRON 4 MG/2 ML VIAL IVP PRN ×2 (06:23→17:29)
[2018-08-07 07:14] LABS: ALBUMIN 2.4 g/dL (3.2-5.5); ALBUMIN/GLOBULIN RATIO 0.8 (1.0-2.2); BILIRUBIN,TOTAL 0.2 mg/dL (0.2-1.0); CALCIUM 7.8 mg/dL (8.5-10.3); CREATININE 0.4 mg/dL (0.4-1.0); MAGNESIUM 1.9 mg/dL (1.7-2.8); PHOSPHORUS 2.6 mg/dL (2.5-4.6); TOTAL PROTEIN 5.6 g/dL (6.7-8.2)
[2018-08-07] MEDS: FERROUS GLUCONATE 324 MG TABLET PO SCH ×2 (08:32→17:27)
[2018-08-07] MEDS: POLYETHYLENE GLYCOL 3350 17 GM PACKET PO SCH (08:32)
[2018-08-07] MEDS: MORPHINE ER 15 MG TABLET PO SCH ×2 (08:32→20:12)
[2018-08-07] MEDS: clonazePAM 0.5 MG TABLET PO SCH (08:32)
--- NOTE | 2018-08-07 12:10 | PROVIDER PROGRESS NOTE ---
Subjective - Prog Note Date Prog Note Date: 08/07/18 Prog Note Time: 12:08 - Subjective Pt reports feeling: No change Subjective: She lays quietly in bed. Not interactive. and I have most of the conversation as we negotiate her care. At one point her and I annoy her and she tells us that we need to keep her voices down. Current Medications - Current Medications Current Medications: Active Medications Aspirin (Ecotrin) 650 mg PO Q4H PRN PRN Reason: PAIN Last Admin: 08/05/18 17:49 Dose: 650 mg Clonazepam (Klonopin) 0.25 mg PO DAILY [facility]RE[facility] Last Admin: 08/07/18 08:32 Dose: 0.25 mg Ferrous Gluconate (Fergon) 324 mg PO BIDWM [facility]RE[facility] Last Admin: 08/07/18 08:32 Dose: 324 mg Hydrocortisone (Anusol-Hc) 25 mg [place] BID PRN PRN Reason: Hemorrhoids Hydromorphone HCl (Dilaudid Inj Carp) 1 mg IVP Q2HR PRN PRN Reason: Pain 8 to 10 Last Admin: 08/05/18 15:42 Dose: 1 mg Meropenem 1 gm/ Sodium (Chloride) 100 mls @ 200 mls/hr IV Q12H [facility] Last Infusion: 08/07/18 07:27 Dose: Infused Sodium Chloride (Normal Saline 0.9%) 1,000 mls @ 100 mls/hr IV .Q10H [facility] Last Admin: 08/07/18 01:19 Dose: 100 mls/hr Fat Emulsion Intravenous (Intralipid 20%) 250 mls @ 21 mls/hr IV Q24H [facility] Last Infusion: 08/07/18 07:45 Dose: Infused Multivitamins 10 ml/ Chromium/Copper/Manganese/Seleni/Zn 1 ml/ Amino Ac/Electrol/Dextrose /Calcium 2,011 mls @ 60 mls/hr IV Q24H [facility]; Protocol Last Infusion: 08/06/18 22:21 Dose: 60 mls/hr Levothyroxine Sodium (Synthroid) 88 mcg PO QDAC [facility] Last Admin: 08/07/18 06:17 Dose: 88 mcg Lidocaine (Lidoderm Patch) 1 patch TOP HS [facility] Last Admin: 08/06/18 19:37 Dose: 1 patch Loperamide HCl (Imodium) 2 mg PO Q4H PRN PRN Reason: Diarrhea Lorazepam (Ativan) 0.5 mg SL Q6H PRN PRN Reason: Anxiety Mirtazapine (Remeron) 7.5 mg PO HS [facility] Last Admin: 08/06/18 21:32 Dose: 7.5 mg Morphine Sulfate () 15 mg PO BID [facility] Last Admin: 08/07/18 08:32 Dose: 15 mg Ondansetron HCl (Zofran Inj) 4 mg IVP Q6HR PRN PRN Reason: Nausea / Vomiting Last Admin: 08/07/18 06:23 Dose: 4 mg Ondansetron HCl (Zofran Odt) 4 mg TL Q6HR PRN PRN Reason: Nausea / Vomiting Polyethylene Glycol (Miralax) 17 gm PO DAILY [facility] Last Admin: 08/07/18 08:32 Dose: 17 gm Prochlorperazine Edisylate (Compazine Inj) 10 mg IVP Q4HR PRN PRN Reason: Nausea / Vomiting Sodium Chloride (Normal Saline Flush 0.9%) 10 ml IVP PRN PRN PRN Reason: NEEDED PER PROVIDER ORDERS Last Admin: 08/06/18 19:30 Dose: 10 ml Sodium Chloride (Normal Saline Flush 0.9%) 10 ml IVP 0100,0900,1700 [facility] Last Admin: 08/07/18 08:32 Dose: Not Given Sodium Chloride (Normal Saline Flush 0.9%) 10 ml IVP PRN PRN PRN Reason: NEEDED PER PROVIDER ORDERS Tramadol HCl (Ultram) 50 mg PO Q4HR PRN PRN Reason: PAIN Last Admin: 08/07/18 00:12 Dose: 50 mg Aspirin [Aspirin EC] 650 mg PO .Q4-6H PRN 07/13/18 Clonazepam 0.25 mg PO DAILY 07/13/18 Lidocaine [Lidoderm] 1 patch TOP DAILY 07/13/18 traMADol [Ultram] 50 mg PO QID PRN 07/13/18 Objective - Vital Signs/Intake & Output Reviewed Vital Signs: Yes Vital Signs: Vital Signs x48h Temp Pulse Resp BP BP Pulse Ox 08/07/18 07:38 37.0 C 87 16 139/62 H 98 08/07/18 05:36 36.9 C 93 20 146/77 H 98 Intake & Output: Intake & Output 08/04/18 08/05/18 08/06/18 08/07/18 23:59 23:59 23:59 23:59 Intake Total 2928.334 3478.150 7230.133 684.8 Output Total 2950 3675 2200 1750 Balance -21.666 -334.438 8240.133 -1065.2 - Objective General Appearance: positive: No acute distress, Other (Pale, withdrawn, elderly female who barely speaks because of withdrawn state) Eyes Bilateral: positive: PERRL ENT: positive: Pharynx nml Neck: positive: No JVD. negative: Stiff neck, Carotid bruit Respiratory: positive: Chest non-tender. negative: Wheezes, Rales, Rhonchi Cardiovascular: positive: Regular rate & rhythm. negative: Gallop/S4, Friction rub Abdomen: positive: No organomegaly, Nml bowel sounds (hypoactive), No distention, Tenderness (Left lower quadrant, less and less is been going on with this hospitalization). negative: Guarding, Rebound, Hepatomegaly, Splenomegaly Skin: positive: Warm, Dry Extremities: positive: Full ROM, Pedal edema Neurologic/Psychiatric: positive: Oriented x3, CN's nml (2-12), Motor nml. negative: Mood/affect nml, Depressed mood/affect - Lab Results Fish Bones: 08/05/18 04:55 08/07/18 06:31 Other Labs: Lab Results x24hrs 08/07/18 08/06/18 Range/Units 06:31 12:48 Sodium 129 L 134 L (135-145) mmol/L Potassium 3.3 L 3.9 (3.5-5.0) mmol/L Chloride 98 L 102 (101-111) mmol/L Carbon Dioxide 23 23 (21-32) mmol/L Anion Gap 8.0 9.0 (6-13) BUN 12 10 (6-20) mg/dL Creatinine 0.4 0.4 (0.4-1.0) mg/dL Estimated GFR (MDRD) 154 154 (>89) Glucose 129 H 108 H (70-100) mg/dL Calcium 7.8 L 7.9 L (8.5-10.3) mg/dL Phosphorus 2.6 (2.5-4.6) mg/dL Magnesium 1.9 (1.7-2.8) mg/dL Total Bilirubin 0.2 0.5 (0.2-1.0) mg/dL AST 19 18 (10-42) IU/L ALT 10 < 10 L (10-60) IU/L Alkaline Phosphatase 83 83 (42-121) IU/L Total Protein 5.6 L 5.8 L (6.7-8.2) g/dL Albumin 2.4 L 2.5 L (3.2-5.5) g/dL Globulin 3.2 3.3 (2.1-4.2) g/dL Albumin/Globulin Ratio 0.8 L 0.8 L (1.0-2.2) Prealbumin 13 L (18-45) mg/dL Triglycerides 169 H ( - 149) mg/dL ABX Reporting Has patient been on IV antibiotics over the past 48 hours?: Yes Sepsis Event Note (H) - Evaluation Possible source of Sepsis: positive: GI tract/intra-abdominal Assessment/Plan - Problem List (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 Sent home for outpatient management. Was doing well. Antibiotics stopped a few days prior to admission. Now returns with recurrence of abdominal pain,tachycardia while in followup visit in [facility] office and CT confirmation of slight worsening of abscess, and probable fistula. Her is spoken to Dr. Hussein at length. Not sure if they want to progress to surgery at this time even though this an option. Options: 1. No surgery at all and with time, antibiotics, and waiting this may resolve 2. Diverting loop colostomy 3. Colectomy, ostomy, then reconnection. This surgery is by far the most extensive, and because of her nutritional status the most risky. Plan: Feed the patient clear liguids. Right now the patient's , who is also a surgeon, he is leaning toward opt ion #1. This is going to take some time and patients. She is on TPN and antibiotics. He is amenable to her being transferred [facility] a [place] for long-term antibiotic therapy. After Investigating the possibility of her going to [facility], he identified [facility], they will not take her with TPN. As such he is asking us to stop her TPN and she will go there with antibiotics. Social Work notified. Continue meropenem, Day #5 Physical therapy evaluation (2) Protein-calorie malnutrition, moderate Impression: Continues from last admission. Her states that she is may be eating 200 to 300 becky a day at most right now. Nutrition services will work with her to increase intake especially since [facility]. Sodium and potassium are low today. Plan: PICC line done and TPN ongoing until she leaves. Adjust TPN and supplement for what she needs. (3) Alzheimer's dementia Impression: This is to be taken into account as a quality of life indicator per her . We will follow his guidelines and her wishes. Qualifiers: Alzheimer's disease onset: unspecified onset Dementia behavioral disturbance: without behavioral disturbance Qualified Code(s): G30.9 - Alzheimer's disease, unspecified; F02.80 - Dementia in other diseases classified elsewhere without behavioral disturbance (4) Hypothyroidism Impression: I had held her hypothyroid medication thinking that we would not needed this admission. But her would really like her to be on her. As such we will resume that. Qualifiers: Hypothyroidism type: acquired Qualified Code(s): E03.9 - Hypothyroidism, unspecified (5) Lactic acid acidosis Impression: Continued for 48 hours in spite of antibiotics, IV fluids. Resolved now. There is no evidence of sepsis on exam and that she is afebrile, normotensive. (6) Hypokalemia supplement IV since doesn't like po. recheck daily.
[2018-08-07] MEDS: FAT EMULSION 20% 250 ML IV SCH (18:45)
[2018-08-07] MEDS: TPN (CLINIMIX E 5/15) 2,000 ML with MULTIVITAMIN 10 ML, TRACE ELEMENTS V CONC 1 ML IV SCH ×3 (18:46)
[2018-08-07] MEDS: MIRTAZAPINE 15 MG TABLET PO SCH (20:13)
[2018-08-07] MEDS: LIDOCAINE PATCH 5% TOP SCH (20:13)
--- NOTE | 2018-08-08 00:18 | CONSULTATION NOTE ---
Referring Provider Name of Referring Provider:: Alfreda Alvarez MD Consult Date: 08/03/18 Chief Complaint - Chief Complaint Chief Complaint: Persistent and recurrent diverticulitis History of Present Illness - Admitted From Admitted From:: [facility] - History Obtained From Records Reviewed: Yes History obtained from: Chart, ER MD, Exam Limitations: Patient's dementia History - Past Medical History Cardiovascular: reports: Hypertension Respiratory: reports: None Neuro: reports: Alzhiemer's, Dementia, Tremors Endocrine/Autoimmune: reports: HyPOthyroidism GI: reports: GERD, Hemorrhoids, Other (chronic rectal pain) GI TECHNICIAN: reports: Other (bladder sling surgery) : reports: Incontinence, Nocturia, Frequency HEENT: reports: Chronic vision loss Psych: reports: Depression, Anxiety, Claustrophobia, Other Musculoskeletal: reports: Osteoporosis, Fatigue, Chronic back pain Derm: reports: None MRSA Hx?: No - Past Surgical History General: reports: Other /GI TECHNICIAN: reports: Other HEENT: reports: Tonsil/Adenoidectomy, Other (total thyroidectomy in 2004, 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 Father: no chronic illnesses, now . Brother: alive and well, history of CAD. Neg for GI tumors Social History Notes: The patient is to her , Flynn who is a retired orthopedic surgeon and resides at home with him as her sole care provider. 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 They have 3 grown daughters that the [place] The patient denies tobacco or alcohol use. Her admits to recent trials of CBD, and THC oils to treat her back pain. She wishes to be a DNR. - Substance History Use: Uses substance without health or social issues: NONE - POLST Patient has POLST: No POLST Status: DNR Meds/Allgy - Home Medications Home Medications: Ambulatory Orders Medication Instructions Recorded Confirmed Aspirin [Aspirin EC] 650 mg PO .Q4-6H PRN 07/13/18 08/04/18 Clonazepam 0.25 mg PO DAILY 07/13/18 08/04/18 Lidocaine [Lidoderm] 1 patch TOP DAILY 07/13/18 08/04/18 traMADol [Ultram] 50 mg PO QID PRN 07/13/18 08/04/18 Amox/Clav 875/125 [Augmentin 1 tab PO BID #20 tablet 07/17/18 08/04/18 875/125] Ferrous Gluconate 240 mg PO BID #60 tablet 07/17/18 08/04/18 Levothyroxine [Synthroid] 88 mcg PO QDAC #30 tablet 07/17/18 08/04/18 Loperamide [Imodium] 2 mg PO Q4H PRN #30 capsule 07/17/18 08/04/18 Mirtazapine [Remeron] 7.5 mg PO HS #30 tablet 07/17/18 08/04/18 Morphine Sulfate [Morphine Sulf 10 mg PO Q1H PRN #30 ml 07/17/18 08/04/18 Oral (Roxanol)] Wheat Dextrin [Benefiber] 1 packet PO DAILY #30 packet 07/17/18 08/04/18 - Allergies Allergies/Adverse Reactions: Allergies Allergy/AdvReac Type Severity Reaction Status Date / Time nitrofurantoin Allergy Severe Hives Verified 07/13/18 10:34 macrocrystalline * [From Macrodantin] Sulfa (Sulfonamide Allergy Severe Hives Verified 07/13/18 10:34 Antibiotics) Conclusion/Plan - Diagnosis Diagnosis: Persistent rather than recurrent diverticulitis - Plan Plan: This note encompasses several discussions with the over several days and cumulatively may be 2 hours of discussion. The bottom line is that there are 3 options available for this patient. The first option that I will mention is for a surgical resection of this complicated diverticular disease with fistula with either a colocolostomy or a colostomy. Bottom line this is a bad choice due to the patient's poor nutrition (prior to her hospitalization she had been subsisting on daniel dawna and orange juice (less than 500 becky a day)) and the complex nature of her diverticular disease. I do not believe that she would heal a colocolostomy, and with her poor nutrition she may not heal her skin incision and she would be at risk for multiple infectious complications. The second option is to perform a diverting colostomy either loop or end. This will not cure her diverticular disease but will divert the stream of stool and arguably decrease the stool load that is seen by her abscess/fistula. The benefits of this option are that the surgery is much less complicated and less risky but the drawback is it is not addressing the primary issue. Again, her poor nutrition makes this option riskier than it should be, and Dr. Alvarez and I have discussed this and the patient has been started on peripheral hyperalimentation. The third option is to simply let nature take its course and the patient's has discussed this with Dr.Jerry Canchola. In the meantime, we have agreed to improve her nutrition, restart her antibiotics which should have not stopped, and will re-CT her every 7 to 10 days initially and may be longer in order to watch the progression or regression of her disease. - Lab Results Lab results reviewed: Yes [place] Bones: 08/05/18 04:55 08/07/18 06:31
[2018-08-08] MEDS: SODIUM CHLORIDE FLUSH 0.9% 10 ML SYRINGE IVP SCH ×3 (02:09→17:15)
[2018-08-08] MEDS: LEVOTHYROXINE 88 MCG TABLET PO SCH ×2 (05:50→06:28)
[2018-08-08] MEDS: MEROPENEM 1 GM in SODIUM CHLORIDE 0.9% MINIBAG 100 ML IV SCH ×2 (05:50→17:48)
[2018-08-08] MEDS: ONDANSETRON 4 MG/2 ML VIAL IVP PRN ×3 (06:28→17:27)
[2018-08-08] MEDS: SODIUM CHLORIDE 0.9% 1,000 ML IV SCH ×2 (08:55→20:55)
[2018-08-08] MEDS: HYDROmorphone 1 MG/ML CARPUJECT IVP PRN ×2 (08:56→17:27)
[2018-08-08] MEDS: SODIUM CHLORIDE FLUSH 0.9% 10 ML SYRINGE IVP PRN ×2 (08:56→10:40)
[2018-08-08] MEDS: POLYETHYLENE GLYCOL 3350 17 GM PACKET PO SCH (14:33)
[2018-08-08] MEDS: FERROUS GLUCONATE 324 MG TABLET PO SCH ×3 (14:33→17:31)
[2018-08-08] MEDS: MORPHINE ER 15 MG TABLET PO SCH ×2 (14:43→22:44)
[2018-08-08] MEDS: clonazePAM 0.5 MG TABLET PO SCH (14:43)
--- NOTE | 2018-08-08 16:03 | PROVIDER PROGRESS NOTE ---
Assessment/Plan - Problem List (1) N&V (nausea and vomiting) Assessment/Plan: This is a new complaint over the past 24 hours. Meds were reviewed and the cause could be IV morphine or her antibiotics. Zofran and Compazine will be scheduled to alternate. She was seen by the [facility] team who indicated that she would not be accepted there until she is without nausea and vomiting for 24 hours, can keep down what she takes in orally and is off TPN for 24 hours. We will plan to treat her nausea and vomiting, continue her TPN until it is obvious she has no more vomiting (2) Diverticular disease of intestine with perforation and abscess Assessment/Plan: She remains on IV antibiotics. There has been a lot of discussionWith the and several surgeons, no surgery is planned, the hope would be for IV antibiotics for several weeks to determine if there is response. (3) UTI (urinary tract infection) Qualifiers: Urinary tract infection type: acute cystitis Hematuria presence: without hematuria Qualified Code(s): N30.00 - Acute cystitis without hematuria Assessment/Plan: Continue with antibiotics. (4) Alzheimer's dementia Assessment/Plan: She is overall stable, communicative, not combative and is cooperative (5) Hyponatremia Assessment/Plan: She has chronic hyponatremia, noted after reviewing old labs. We will continue gentle hydration using NS. Follow BMP intermittent (6) Hypokalemia due to inadequate potassium intake Assessment/Plan: Related to poor intake. Replace K. Follow BMP intermittent (7) FTT (failure to thrive) in adult Assessment/Plan: As above (8) Anemia Qualifiers: Anemia type: unspecified type Qualified Code(s): D64.9 - Anemia, unspecified Assessment/Plan: There are no signs of symptoms from her anemia. If she is transition to hospice, we will not plan to replace iron, B12 or folate. (9) Breast cancer Assessment/Plan: Stable. (10) Depression Assessment/Plan: She remains on her home doses of antidepressants. (11) Intractable pain Assessment/Plan: She remains on her home p.o. narcotics. We will stop the IV narcotics which could be exacerbating her nausea. Use nonsteroidal anti-inflammatories or affirmative or Tylenol for further pain treatment - Current Meds Current Meds: Current Medications Generic Name Dose Route Start Last Admin Trade Name Freq PRN Reason Stop Dose Admin Aspirin 650 mg 08/04/18 18:41 08/05/18 17:49 Ecotrin PO 650 mg Q4H PRN Administration PAIN Clonazepam 0.25 mg 08/05/18 09:00 08/08/18 14:43 Klonopin PO 0.25 mg DAILY DREW Administration Ferrous Gluconate 324 mg 08/05/18 08:00 08/08/18 14:33 Fergon PO Not Given BIDWM DREW Hydromorphone HCl 1 mg 08/03/18 17:33 08/08/18 08:56 Dilaudid Inj Carp IVP 1 mg Q2HR PRN Administration Pain 8 to 10 Meropenem 1 gm/ Sodium 100 mls @ 200 mls/hr 08/03/18 18:00 08/08/18 06:53 Chloride IV Infused Q12H DREW Infusion Sodium Chloride 1,000 mls @ 100 mls/hr 08/03/18 18:00 08/08/18 08:55 Normal Saline 0.9% IV 100 mls/hr .Q10H DREW Administration Fat Emulsion Intravenous 250 mls @ 21 mls/hr 08/04/18 19:00 08/08/18 06:53 Intralipid 20% IV Infused Q24H DREW Infusion Multivitamins 10 ml/ Chromium/ 2,011 mls @ 60 mls/hr 08/05/18 19:00 08/07/18 18:46 Copper/Manganese/Seleni/Zn 1 IV 60 mls/hr ml/ Amino Ac/Electrol/Dextrose Q24H DREW Administration /Calcium Protocol Levothyroxine Sodium 88 mcg 08/04/18 19:00 08/08/18 06:28 Synthroid PO 88 mcg QDAC DREW Administration Lidocaine 1 patch 08/03/18 22:00 08/07/18 20:13 Lidoderm Patch TOP 1 patch HS DREW Administration Mirtazapine 7.5 mg 08/04/18 21:00 08/07/18 20:13 Remeron PO 7.5 mg HS DREW Administration Morphine Sulfate 15 mg 08/05/18 10:00 08/08/18 14:43 PO 15 mg BID DREW Administration Ondansetron HCl 4 mg 08/03/18 17:33 08/08/18 08:56 Zofran Inj IVP 4 mg Q6HR PRN Administration Nausea / Vomiting Polyethylene Glycol 17 gm 08/04/18 09:00 08/08/18 14:33 Miralax PO Not Given DAILY DREW Prochlorperazine Edisylate 10 mg 08/06/18 11:29 08/08/18 10:39 Compazine Inj IVP 10 mg Q4HR PRN Administration Nausea / Vomiting Sodium Chloride 10 ml 08/03/18 17:33 08/08/18 10:40 Normal Saline Flush 0.9% IVP 10 ml PRN PRN Administration NEEDED PER PROVIDER ORDERS Sodium Chloride 10 ml 08/04/18 01:00 08/08/18 08:56 Normal Saline Flush 0.9% IVP 10 ml 0100,0900,1700 DREW Administration Tramadol HCl 50 mg 08/06/18 10:41 08/07/18 00:12 Ultram PO 50 mg Q4HR PRN Administration PAIN - Lab Result Fish Bone Diagrams: 08/09/18 10:30 08/09/18 05:50 Subjective - Subjective Patient Reports: Nausea, Pain Objective Vital Signs: Vital Signs - 24 hr 08/08/18 08/08/18 00:30 07:50 Temperature 37.5 C 37.1 C Heart Rate [ 99 98 Brachial] Respiratory 16 18 Rate Blood Pressure 147/80 H 168/83 H [Left Brachial artery] O2 Saturation 96 97 Oxygen O2 Source Room air Oxygen Flow Rate 10 I&O (Last 24 Hrs): Intake and Output Totals x24h 08/06/18 08/07/18 08/08/18 23:59 23:59 23:59 Intake Total 7230.133 4229.8 1350 Output Total 2200 3750 2651 Balance 5030.133 479.8 -1301 General: Alert HEENT: Mucous membr. moist/pink Neck: Supple Neuro: Disoriented Cardiovascular: Regular rate, No murmurs Respiratory: No respiratory distress Abdomen: Normal bowel sounds, Soft Extremities: No edema - Results Results: Laboratory Results WBC 11.5 x10^3/uL (4.8-10.8) H 08/05/18 04:55 RBC 3.76 10^6/uL (4.20-5.40) L 08/05/18 04:55 Hgb 11.1 g/dL (12.0-16.0) L 08/05/18 04:55 Hct 33.8 % (37.0-47.0) L 08/05/18 04:55 MCV 89.9 fL (81.0-99.0) 08/05/18 04:55 MCH 29.5 pg (27.0-31.0) 08/05/18 04:55 MCHC 32.8 g/dL (32.0-36.0) 08/05/18 04:55 RDW 14.6 % (12.0-15.0) 08/05/18 04:55 Plt Count 313 10^3/uL (130-450) 08/05/18 04:55 MPV 9.6 fL (7.9-10.8) 08/05/18 04:55 Neut # (Auto) 7.4 10^3/uL (1.5-6.6) H 08/05/18 04:55 Lymph # (Auto) 2.8 10^3/uL (1.5-3.5) 08/05/18 04:55 [place]erry # (Auto) 0.9 10^3/uL (0.0-1.0) 08/05/18 04:55 Eos # (Auto) 0.2 10^3/uL (0.0-0.7) 08/05/18 04:55 Baso # (Auto) 0.1 10^3/uL (0.0-0.1) 08/05/18 04:55 Absolute Nucleated RBC 0.00 x10^3/uL 08/05/18 04:55 Nucleated RBC % 0.0 /100WBC 08/05/18 04:55 PT 15.5 secs (9.9-12.6) H 08/05/18 04:55 INR 1.4 (0.8-1.2) H 08/05/18 04:55 APTT 25.1 secs (24.9-33.3) 08/03/18 15:35 Sodium 129 mmol/L (135-145) L 08/07/18 06:31 Potassium 3.3 mmol/L (3.5-5.0) L 08/07/18 06:31 Chloride 98 mmol/L (101-111) L 08/07/18 06:31 Carbon Dioxide 23 mmol/L (21-32) 08/07/18 06:31 Anion Gap 8.0 (6-13) 08/07/18 06:31 BUN 12 mg/dL (6-20) 08/07/18 06:31 Creatinine 0.4 mg/dL (0.4-1.0) 08/07/18 06:31 Estimated GFR (MDRD) 154 (>89) 08/07/18 06:31 Glucose 129 mg/dL (70-100) H 08/07/18 06:31 POC Whole Bld Glucose 165 mg/dL (70 - 100) H 08/08/18 11:18 Lactic Acid 0.9 mmol/L (0.5-2.2) 08/05/18 04:55 Calcium 7.8 mg/dL (8.5-10.3) L 08/07/18 06:31 Phosphorus 2.6 mg/dL (2.5-4.6) 08/07/18 06:31 Magnesium 1.9 mg/dL (1.7-2.8) 08/07/18 06:31 Total Bilirubin 0.2 mg/dL (0.2-1.0) 08/07/18 06:31 AST 19 IU/L (10-42) 08/07/18 06:31 ALT 10 IU/L (10-60) 08/07/18 06:31 Alkaline Phosphatase 83 IU/L (42-121) 08/07/18 06:31 Total Protein 5.6 g/dL (6.7-8.2) L 08/07/18 06:31 Albumin 2.4 g/dL (3.2-5.5) L 08/07/18 06:31 Globulin 3.2 g/dL (2.1-4.2) 08/07/18 06:31 Albumin/Globulin Ratio 0.8 (1.0-2.2) L 08/07/18 06:31 Prealbumin 13 mg/dL (18-45) L 08/07/18 06:31 Triglycerides 169 mg/dL (-149) H 08/07/18 06:31 Lipase 31 U/L (22-51) 08/03/18 15:35 Urine Color YELLOW 08/03/18 15:30 Urine Clarity CLEAR (CLEAR) 08/03/18 15:30 Urine pH 7.5 PH (5.0-7.5) 08/03/18 15:30 Ur Specific Vancleve <=1.005 (1.002-1.030) 08/03/18 15:30 Urine Protein NEGATIVE mg/dL (NEGATIVE) 08/03/18 15:30 Urine Glucose (UA) NEGATIVE mg/dL (NEGATIVE) 08/03/18 15:30 Urine Ketones NEGATIVE mg/dL (NEGATIVE) 08/03/18 15:30 Urine Occult Blood TRACE-INTA (NEGATIVE) 08/03/18 15:30 Urine Nitrite NEGATIVE (NEGATIVE) 08/03/18 15:30 Urine Bilirubin NEGATIVE (NEGATIVE) 08/03/18 15:30 Urine Urobilinogen 0.2 (NORMAL) E.U./dL (NORMAL) 08/03/18 15:30 Ur Leukocyte Esterase NEGATIVE (NEGATIVE) 08/03/18 15:30 Ur Microscopic Review NOT INDICATED 08/03/18 15:30 Urine Culture Comments NOT INDICATED 08/03/18 15:30 - Procedures Procedures: Procedures EXCISION OF ANUS, VIA NATURAL OR ARTIFICIAL OPENING (05/07/16) EXCISION OF RECTUM, VIA NATURAL OR ARTIFICIAL OPENING, DIAGN (05/07/16) INSPECTION OF LOWER INTESTINAL TRACT, ENDO (06/01/16) URIN INCONTIN REPAIR NEC (05/29/14) Sepsis Event Note (H) - Evaluation Possible source of Sepsis: positive: GI tract/intra-abdominal
[2018-08-08] MEDS: traMADol 50 MG TABLET PO PRN (17:14)
--- NOTE | 2018-08-08 18:32 | ADVANCE CARE PLANNING NOTE ---
Advance Care Planning - Date/Time Date: 08/08/18 Time: 16:30 - Purpose of encounter Text: To establish patient wishes and 's consent for ordering a repeat referral to Hospice - Parties in attendance Parties in attendance: The and the Hospitalist spoke at the patient's bedside and also outside of her room - Decisional capacity Decisional capacity of: Patient has times of lucidity. She has the diagnosis of Alzheimer's dementia which is mild to moderate and the is the DPOA. - Subjective/Patient's story Subjective/Patient's story: Patient has a history of breast cancer, prior urinary tract infections and Alzheimer's dementia. She fell 1 month ago, was found to have a pelvic fracture. Her mentation then was fairly good with no combative behavior but she was impulsive. She was sent home and was compliant with the antibiotics but had malnutrition with poor appetite, only wanted to drink daniel dawna and protein shakes daily. There is been weight loss that the has witnessed. She did have the strength to walk in the house using a walker, only several steps. Since this admission she has had pain or nausea and has not even been in the chair. The patient has told the comments suggesting that she is giving up: "I had a good life". - Objective/Medical story Objective/Medical Story: Patient was admitted 1 month ago after a fall resulting in a pelvic fracture, had continued pain in the pelvic area and work-up revealed a diverticular absces s, she required IV antibiotics, was sent home with p.o. antibiotics that were stopped 2 days before this current admission and she had recurrence of symptoms with signs of recurrence of the same infection. She ihas a PICC line and getting IV antibiotics now. She is felt to be too high risk to undergo extensive bowel surgery. Nausea and vomiting are intermittent. Patient has had documented very poor intake of possibly "200 to 300 becky a day only when she was at home for the past 1 month", according to the - Goals of Care Goals of care determinations: The wants to respect the patient's wishes, there will be no transfers for higher level of care. A repeat hospice consult will be requested. She is a DNR. - Plan Plan: She was seen 1 month ago by Hospice and felt to have a greater than 6 months prognosis. Today, a new referral for Hospice will be requested. - Code Status Code Status: Do Not Attempt Resuscitation - Time Spent on Advance Care Planning Time spent on advance care plannin min
[2018-08-08] MEDS: TPN (CLINIMIX E 5/15) 2,000 ML with MULTIVITAMIN 10 ML, TRACE ELEMENTS V CONC 1 ML IV SCH ×3 (19:46)
[2018-08-08] MEDS: FAT EMULSION 20% 250 ML IV SCH (19:47)
[2018-08-08] MEDS: MIRTAZAPINE 15 MG TABLET PO SCH (22:45)
[2018-08-08] MEDS: LIDOCAINE PATCH 5% TOP SCH (22:45)
[2018-08-09] MEDS: SODIUM CHLORIDE FLUSH 0.9% 10 ML SYRINGE IVP SCH ×3 (00:12→18:26)
[2018-08-09] MEDS: SODIUM CHLORIDE FLUSH 0.9% 10 ML SYRINGE IVP PRN ×2 (05:32→10:14)
[2018-08-09] MEDS: MEROPENEM 1 GM in SODIUM CHLORIDE 0.9% MINIBAG 100 ML IV SCH ×2 (05:39→18:27)
[2018-08-09] MEDS: LEVOTHYROXINE 88 MCG TABLET PO SCH (05:40)
[2018-08-09 06:08] LABS: ALBUMIN 2.4 g/dL (3.2-5.5); ALBUMIN/GLOBULIN RATIO 0.7 (1.0-2.2); BILIRUBIN,TOTAL 0.5 mg/dL (0.2-1.0); CALCIUM 8.1 mg/dL (8.5-10.3); CREATININE 0.3 mg/dL (0.4-1.0)
[2018-08-09] MEDS: SODIUM CHLORIDE 0.9% 1,000 ML IV SCH ×3 (06:55→19:58)
[2018-08-09] MEDS ORDERED: POTASSIUM CHLOR 10 MEQ/100 ML 10 MEQ/100 ML BAG IV SCH (09:00)
[2018-08-09] MEDS ORDERED: POTASSIUM CHLORIDE INJ 40 MEQ in SODIUM CHLORIDE 0.9% 480 ML IV ONE (10:00)
[2018-08-09] MEDS: ONDANSETRON 4 MG/2 ML VIAL IVP PRN ×2 (10:13→17:31)
[2018-08-09] MEDS: metroNIDAZOLE 500 MG/100 ML 500 MG/100 ML BAG IV SCH ×2 (10:26→17:18)
[2018-08-09 10:44] LABS: BASOPHILS # (AUTO) 0.1 10^3/uL (0.0-0.1); BASOPHILS % (AUTO) 0.3 %; EOSINOPHILS # (AUTO) 0.1 10^3/uL (0.0-0.7); EOSINOPHILS % (AUTO) 0.5 %; LYMPHOCYTES # (AUTO) 3.1 10^3/uL (1.5-3.5); LYMPHOCYTES % (AUTO) 18.8 %; MEAN CORPUSCULAR HEMOGLOBIN 29.2 pg (27.0-31.0); MEAN CORPUSCULAR HGB CONC 33.2 g/dL (32.0-36.0); MEAN CORPUSCULAR VOLUME 87.8 fL (81.0-99.0); MEAN PLATELET VOLUME 9.9 fL (7.9-10.8); MONOCYTES # (AUTO) 1.2 10^3/uL (0.0-1.0); MONOCYTES % (AUTO) 7.4 %; NEUTROPHILS # (AUTO) 11.9 10^3/uL (1.5-6.6); PLT - PLATELET COUNT 240 10^3/uL (130-450); RED BLOOD COUNT 3.77 10^6/uL (4.20-5.40); RED CELL DISTRIBUTION WIDTH 14.6 % (12.0-15.0); WHITE BLOOD COUNT 16.5 x10^3/uL (4.8-10.8)
[2018-08-09] MEDS: MORPHINE ER 15 MG TABLET PO SCH ×2 (11:34→21:43)
[2018-08-09] MEDS: FERROUS GLUCONATE 324 MG TABLET PO SCH ×3 (11:34→17:19)
[2018-08-09] MEDS: clonazePAM 0.5 MG TABLET PO SCH ×2 (11:34→13:25)
[2018-08-09] MEDS: POLYETHYLENE GLYCOL 3350 17 GM PACKET PO SCH (11:35)
[2018-08-09] MEDS: TPN (CLINIMIX E 5/15) 2,000 ML with MULTIVITAMIN 10 ML, TRACE ELEMENTS V CONC 1 ML IV SCH ×3 (19:33)
--- NOTE | 2018-08-09 19:38 | PROVIDER PROGRESS NOTE ---
Assessment/Plan - Problem List (1) N&V (nausea and vomiting) Assessment/Plan: She has continued symptoms but lessened, requires antiemetics. Continue with gentle IV hydration. Awaiting hospice acceptance and further management under their care (2) Diverticular disease of intestine with perforation and abscess Assessment/Plan: Continue with IV antibiotics, and Flagyl added to Meropenam since she had a low- grade fever. Continue to await the decision regarding possible transitioning to comfort care (3) UTI (urinary tract infection) Qualifiers: Urinary tract infection type: acute cystitis Hematuria presence: without hematuria Qualified Code(s): N30.00 - Acute cystitis without hematuria Assessment/Plan: Continue empiric IV antibiotic (4) Alzheimer's dementia Assessment/Plan: Stable (5) Hyponatremia Assessment/Plan: Continue gentle saline hydration. Will decrease amount of blood draws if we are transitioning to comfort care or hospice (6) Hypokalemia due to inadequate potassium intake Assessment/Plan: Continue with replacement. Blood draws plan is as above (7) FTT (failure to thrive) in adult Assessment/Plan: She is a hospice candidate based on her protein calorie malnutrition and failure to thrive. Awaiting hospice consult (8) Anemia Qualifiers: Anemia type: unspecified type Qualified Code(s): D64.9 - Anemia, unspecified Assessment/Plan: No cardiopulmonary symptoms. Blood draw plan as above (9) Depression Assessment/Plan: Continue on her home antidepressants (10) Intractable pain Assessment/Plan: Continue with her scheduled pain medications. Will use IV affirmative or p.o. Tylenol and try to minimize IV narcotics which are probably adding to her nausea. This plan was discussed with her nurses. - Current Meds Current Meds: Current Medications Generic Name Dose Route Start Last Admin Trade Name Freq PRN Reason Stop Dose Admin Aspirin 650 mg 08/04/18 18:41 08/05/18 17:49 Ecotrin PO 650 mg Q4H PRN Administration PAIN Clonazepam 0.25 mg 08/05/18 09:00 08/09/18 13:25 Klonopin PO Not Given DAILY DREW Ferrous Gluconate 324 mg 08/05/18 08:00 08/09/18 17:19 Fergon PO 324 mg BIDWM DREW Administration Meropenem 1 gm/ Sodium 100 mls @ 200 mls/hr 08/03/18 18:00 08/09/18 18:27 Chloride IV 200 mls/hr Q12H DREW Administration Sodium Chloride 1,000 mls @ 100 mls/hr 08/03/18 18:00 08/09/18 06:55 Normal Saline 0.9% IV 100 mls/hr .Q10H DREW Administration Fat Emulsion Intravenous 250 mls @ 21 mls/hr 08/04/18 19:00 08/09/18 08:42 Intralipid 20% IV Infused Q24H DREW Infusion Multivitamins 10 ml/ Chromium/ 2,011 mls @ 60 mls/hr 08/05/18 19:00 08/09/18 19:33 Copper/Manganese/Seleni/Zn 1 IV 60 mls/hr ml/ Amino Ac/Electrol/Dextrose Q24H DREW Administration /Calcium Protocol Metronidazole 500 mg in 100 mls @ 100 mls/hr 08/09/18 09:00 08/09/18 18:18 Flagyl 500 Mg/100 Ml IV Infused Q8H DREW Infusion Levothyroxine Sodium 88 mcg 08/04/18 19:00 08/09/18 05:40 Synthroid PO 88 mcg QDAC DREW Administration Lidocaine 1 patch 08/03/18 22:00 08/08/18 22:45 Lidoderm Patch TOP 1 patch HS DREW Administration Mirtazapine 7.5 mg 08/04/18 21:00 08/08/18 22:45 Remeron PO 7.5 mg HS DREW Administration Morphine Sulfate 15 mg 08/05/18 10:00 08/09/18 11:34 PO 15 mg BID DREW Administration Ondansetron HCl 4 mg 08/03/18 17:33 08/09/18 17:31 Zofran Inj IVP 4 mg Q6HR PRN Administration Nausea / Vomiting Polyethylene Glycol 17 gm 08/04/18 09:00 08/09/18 11:35 Miralax PO 17 gm DAILY DREW Administration Prochlorperazine Edisylate 10 mg 08/06/18 11:29 08/08/18 10:39 Compazine Inj IVP 10 mg Q4HR PRN Administration Nausea / Vomiting Sodium Chloride 10 ml 08/03/18 17:33 08/09/18 10:14 Normal Saline Flush 0.9% IVP 60 ml PRN PRN Administration NEEDED PER PROVIDER ORDERS Sodium Chloride 10 ml 08/04/18 01:00 08/09/18 18:26 Normal Saline Flush 0.9% IVP Not Given 0100,0900,1700 DREW Sodium Chloride 10 ml 08/05/18 10:56 08/09/18 05:32 Normal Saline Flush 0.9% IVP 10 ml PRN PRN Administration NEEDED PER PROVIDER ORDERS Tramadol HCl 50 mg 08/06/18 10:41 08/07/18 00:12 Ultram PO 50 mg Q4HR PRN Administration PAIN - Lab Result Fish Bone Diagrams: 08/09/18 10:30 08/09/18 05:50 - Additional Planning My Orders: My Active Orders 08/09/18 09:00 metroNIDAZOLE 500 MG/100 ML [Flagyl 500 mg/100 ml] 500 mg in 100 ml IV Q8H Subjective - Subjective Patient Reports: Nausea, Pain Objective Vital Signs: Vital Signs - 24 hr 08/08/18 08/09/18 08/09/18 23:40 05:27 08:00 Temperature 37.6 C H 36.5 C Heart Rate [ 99 113 H Brachial] Respiratory 16 16 Rate Blood Pressure 172/83 H [Left Brachial artery] Blood Pressure 164/89 H 153/85 H [Left Radial artery] O2 Saturation 97 97 08/09/18 16:42 Temperature 37.4 C Heart Rate [ 114 H Brachial] Respiratory 20 Rate Blood Pressure 169/88 H [Left Brachial artery] Blood Pressure [Left Radial artery] O2 Saturation 94 Oxygen O2 Source Room air Oxygen Flow Rate 10 I&O (Last 24 Hrs): Intake and Output Totals x24h 08/07/18 08/08/18 08/09/18 23:59 23:59 23:59 Intake Total 4229.8 4250 3627 Output Total 3750 3801 1650 Balance 479.8 449 1977 General: Mild distress HEENT: Mucous membr. moist/pink Neck: Supple Neuro: Non Focal Cardiovascular: Regular rate Respiratory: No respiratory distress Abdomen: Normal bowel sounds Extremities: No edema - Results Results: Laboratory Results WBC 16.5 x10^3/uL (4.8-10.8) H 08/09/18 10:30 RBC 3.77 10^6/uL (4.20-5.40) L 08/09/18 10:30 Hgb 11.0 g/dL (12.0-16.0) L 08/09/18 10:30 Hct 33.1 % (37.0-47.0) L 08/09/18 10:30 MCV 87.8 fL (81.0-99.0) 08/09/18 10:30 MCH 29.2 pg (27.0-31.0) 08/09/18 10:30 MCHC 33.2 g/dL (32.0-36.0) 08/09/18 10:30 RDW 14.6 % (12.0-15.0) 08/09/18 10:30 Plt Count 240 10^3/uL (130-450) 08/09/18 10:30 MPV 9.9 fL (7.9-10.8) 08/09/18 10:30 Neut # (Auto) 11.9 10^3/uL (1.5-6.6) H 08/09/18 10:30 Lymph # (Auto) 3.1 10^3/uL (1.5-3.5) 08/09/18 10:30 [place]uthrie # (Auto) 1.2 10^3/uL (0.0-1.0) H 08/09/18 10:30 Eos # (Auto) 0.1 10^3/uL (0.0-0.7) 08/09/18 10:30 Baso # (Auto) 0.1 10^3/uL (0.0-0.1) 08/09/18 10:30 Absolute Nucleated RBC 0.00 x10^3/uL 08/09/18 10:30 Nucleated RBC % 0.0 /100WBC 08/09/18 10:30 PT 15.5 secs (9.9-12.6) H 08/05/18 04:55 INR 1.4 (0.8-1.2) H 08/05/18 04:55 APTT 25.1 secs (24.9-33.3) 08/03/18 15:35 Sodium 129 mmol/L (135-145) L 08/09/18 05:50 Potassium 3.0 mmol/L (3.5-5.0) L 08/09/18 05:50 Chloride 93 mmol/L (101-111) L 08/09/18 05:50 Carbon Dioxide 25 mmol/L (21-32) 08/09/18 05:50 Anion Gap 11.0 (6-13) 08/09/18 05:50 BUN 13 mg/dL (6-20) 08/09/18 05:50 Creatinine 0.3 mg/dL (0.4-1.0) L 08/09/18 05:50 Estimated GFR (MDRD) 215 (>89) 08/09/18 05:50 Glucose 126 mg/dL (70-100) H 08/09/18 05:50 POC Whole Bld Glucose 191 mg/dL (70 - 100) H 08/09/18 16:38 Lactic Acid 0.9 mmol/L (0.5-2.2) 08/05/18 04:55 Calcium 8.1 mg/dL (8.5-10.3) L 08/09/18 05:50 Phosphorus 2.0 mg/dL (2.5-4.6) L 08/09/18 05:50 Magnesium 2.0 mg/dL (1.7-2.8) 08/09/18 05:50 Total Bilirubin 0.5 mg/dL (0.2-1.0) 08/09/18 05:50 AST 32 IU/L (10-42) 08/09/18 05:50 ALT 21 IU/L (10-60) 08/09/18 05:50 Alkaline Phosphatase 97 IU/L (42-121) 08/09/18 05:50 Total Protein 6.0 g/dL (6.7-8.2) L 08/09/18 05:50 Albumin 2.4 g/dL (3.2-5.5) L 08/09/18 05:50 Globulin 3.6 g/dL (2.1-4.2) 08/09/18 05:50 Albumin/Globulin Ratio 0.7 (1.0-2.2) L 08/09/18 05:50 Prealbumin 16 mg/dL (18-45) L 08/09/18 05:50 Triglycerides 68 mg/dL (-149) 08/09/18 05:50 Lipase 31 U/L (22-51) 08/03/18 15:35 Urine Color YELLOW 08/03/18 15:30 Urine Clarity CLEAR (CLEAR) 08/03/18 15:30 Urine pH 7.5 PH (5.0-7.5) 08/03/18 15:30 Ur Specific Kelly <=1.005 (1.002-1.030) 08/03/18 15:30 Urine Protein NEGATIVE mg/dL (NEGATIVE) 08/03/18 15:30 Urine Glucose (UA) NEGATIVE mg/dL (NEGATIVE) 08/03/18 15:30 Urine Ketones NEGATIVE mg/dL (NEGATIVE) 08/03/18 15:30 Urine Occult Blood TRACE-INTA (NEGATIVE) 08/03/18 15:30 Urine Nitrite NEGATIVE (NEGATIVE) 08/03/18 15:30 Urine Bilirubin NEGATIVE (NEGATIVE) 08/03/18 15:30 Urine Urobilinogen 0.2 (NORMAL) E.U./dL (NORMAL) 08/03/18 15:30 Ur Leukocyte Esterase NEGATIVE (NEGATIVE) 08/03/18 15:30 Ur Microscopic Review NOT INDICATED 08/03/18 15:30 Urine Culture Comments NOT INDICATED 08/03/18 15:30 - Procedures Procedures: Procedures EXCISION OF ANUS, VIA NATURAL OR ARTIFICIAL OPENING (05/07/16) EXCISION OF RECTUM, VIA NATURAL OR ARTIFICIAL OPENING, DIAGN (05/07/16) INSPECTION OF LOWER INTESTINAL TRACT, ENDO (06/01/16) URIN INCONTIN REPAIR NEC (05/29/14) Sepsis Event Note (H) - Evaluation Possible source of Sepsis: positive: GI tract/intra-abdominal
[2018-08-09] MEDS: FAT EMULSION 20% 250 ML IV SCH (19:53)
[2018-08-09] MEDS: LIDOCAINE PATCH 5% TOP SCH (21:40)
[2018-08-09] MEDS: MIRTAZAPINE 15 MG TABLET PO SCH (21:43)
[2018-08-10] MEDS: metroNIDAZOLE 500 MG/100 ML 500 MG/100 ML BAG IV SCH ×3 (00:33→17:04)
[2018-08-10] MEDS: SODIUM CHLORIDE FLUSH 0.9% 10 ML SYRINGE IVP SCH ×3 (00:34→17:04)
[2018-08-10] MEDS: MEROPENEM 1 GM in SODIUM CHLORIDE 0.9% MINIBAG 100 ML IV SCH ×2 (06:33→18:41)
[2018-08-10] MEDS: LEVOTHYROXINE 88 MCG TABLET PO SCH (06:33)
[2018-08-10] MEDS: SODIUM CHLORIDE 0.9% 1,000 ML IV SCH ×2 (09:26→23:21)
[2018-08-10] MEDS: POLYETHYLENE GLYCOL 3350 17 GM PACKET PO SCH (09:29)
[2018-08-10] MEDS: FERROUS GLUCONATE 324 MG TABLET PO SCH ×2 (09:30→17:05)
[2018-08-10] MEDS: MORPHINE ER 15 MG TABLET PO SCH ×2 (09:30→21:20)
[2018-08-10] MEDS: clonazePAM 0.5 MG TABLET PO SCH (09:30)
[2018-08-10] MEDS: traMADol 50 MG TABLET PO PRN ×2 (13:32→19:00)
[2018-08-10] MEDS: ONDANSETRON 4 MG/2 ML VIAL IVP PRN ×2 (13:41→22:26)
--- NOTE | 2018-08-10 16:26 | PROVIDER PROGRESS NOTE ---
Assessment/Plan - Problem List (1) Diverticular disease of intestine with perforation and abscess Assessment/Plan: She remains on Meropenem and Flagyl. I discussed with the whether we should withdrawal antibiotics in order to transition to comfort care and he says he does not know. We will continue with medical management while she is here, this can be changed and she is discharged and under hospice care (2) UTI (urinary tract infection) Qualifiers: Urinary tract infection type: acute cystitis Hematuria presence: without h ematuria Qualified Code(s): N30.00 - Acute cystitis without hematuria Assessment/Plan: Continue antibiotics as above (3) Alzheimer's dementia Assessment/Plan: Stable (4) Hyponatremia Assessment/Plan: We will continue to treat with TPN and IV fluids while she is here, this can be transitioned after hospice takes over. I reported to the that I am decreasing her blood draws for labs as we are transitioning to hospice, and he is agreeable with this (5) Hypokalemia due to inadequate potassium intake Assessment/Plan: As above #4 (6) FTT (failure to thrive) in adult Assessment/Plan: We will continue with medical management while she is here, this can be changed and she is discharged and under hospice care. PLan to stop TPN at discharge, I discussed this with the and he is in agreement (7) Anemia Qualifiers: Anemia type: unspecified type Qualified Code(s): D64.9 - Anemia, unspecified Assessment/Plan: As above (8) Depression Assessment/Plan: Her prehospital medications for depression continue (9) Intractable pain Assessment/Plan: For the last 1/2 days she has had better pain control on the current regimen. (10) N&V (nausea and vomiting) Assessment/Plan: Resolved - Current Meds Current Meds: Current Medications Generic Name Dose Route Start Last Admin Trade Name Freq PRN Reason Stop Dose Admin Aspirin 650 mg 08/04/18 18:41 08/05/18 17:49 Ecotrin PO 650 mg Q4H PRN Administration PAIN Clonazepam 0.25 mg 08/05/18 09:00 08/10/18 09:30 Klonopin PO 0.25 mg DAILY DREW Administration Ferrous Gluconate 324 mg 08/05/18 08:00 08/10/18 09:30 Fergon PO 324 mg BIDWM DREW Administration Meropenem 1 gm/ Sodium 100 mls @ 200 mls/hr 08/03/18 18:00 08/10/18 07:03 Chloride IV Infused Q12H DREW Infusion Sodium Chloride 1,000 mls @ 100 mls/hr 08/03/18 18:00 08/10/18 09:26 Normal Saline 0.9% IV 100 mls/hr .Q10H DREW Administration Fat Emulsion Intravenous 250 mls @ 21 mls/hr 08/04/18 19:00 08/10/18 07:48 Intralipid 20% IV Infused Q24H DREW Infusion Multivitamins 10 ml/ Chromium/ 2,011 mls @ 60 mls/hr 08/05/18 19:00 08/09/18 19:33 Copper/Manganese/Seleni/Zn 1 IV 60 mls/hr ml/ Amino Ac/Electrol/Dextrose Q24H DREW Administration /Calcium Protocol Metronidazole 500 mg in 100 mls @ 100 mls/hr 08/09/18 09:00 08/10/18 10:25 Flagyl 500 Mg/100 Ml IV Infused Q8H DREW Infusion Levothyroxine Sodium 88 mcg 08/04/18 19:00 08/10/18 06:33 Synthroid PO 88 mcg QDAC DREW Administration Lidocaine 1 patch 08/03/18 22:00 08/09/18 21:40 Lidoderm Patch TOP 1 patch HS DREW Administration Mirtazapine 7.5 mg 08/04/18 21:00 08/09/18 21:43 Remeron PO Not Given HS DREW Morphine Sulfate 15 mg 08/05/18 10:00 08/10/18 09:30 PO 15 mg BID DREW Administration Ondansetron HCl 4 mg 08/03/18 17:33 08/10/18 13:41 Zofran Inj IVP 4 mg Q6HR PRN Administration Nausea / Vomiting Polyethylene Glycol 17 gm 08/04/18 09:00 08/10/18 09:29 Miralax PO 17 gm DAILY DREW Administration Prochlorperazine Edisylate 10 mg 08/06/18 11:29 08/08/18 10:39 Compazine Inj IVP 10 mg Q4HR PRN Administration Nausea / Vomiting Sodium Chloride 10 ml 08/03/18 17:33 08/09/18 10:14 Normal Saline Flush 0.9% IVP 60 ml PRN PRN Administration NEEDED PER PROVIDER ORDERS Sodium Chloride 10 ml 08/04/18 01:00 08/10/18 09:30 Normal Saline Flush 0.9% IVP Not Given 0100,0900,1700 DREW Sodium Chloride 10 ml 08/05/18 10:56 08/09/18 05:32 Normal Saline Flush 0.9% IVP 10 ml PRN PRN Administration NEEDED PER PROVIDER ORDERS Tramadol HCl 50 mg 08/06/18 10:41 08/10/18 13:32 Ultram PO 50 mg Q4HR PRN Administration PAIN - Lab Result Fish Bone Diagrams: 08/09/18 10:30 08/09/18 05:50 Subjective - Subjective Patient Reports: Resting Comfortably Nursing Reports: Other (No nausea, able to drink liquids. No BM for 3 days) Objective Vital Signs: Vital Signs - 24 hr 08/09/18 08/10/18 08/10/18 16:42 00:30 08:00 Temperature 37.4 C 37.5 C 37.2 C Heart Rate [ 114 H 111 H 112 H Brachial] Respiratory 20 16 16 Rate Blood Pressure 169/88 H 179/91 H [Left Brachial artery] Blood Pressure 142/76 H [Left Radial artery] O2 Saturation 94 95 96 08/10/18 15:36 Temperature 36.7 C Heart Rate [ 101 H Brachial] Respiratory 20 Rate Blood Pressure 150/79 H [Left Brachial artery] Blood Pressure [Left Radial artery] O2 Saturation 94 Oxygen O2 Source Room air Oxygen Flow Rate 10 I&O (Last 24 Hrs): Intake and Output Totals x24h 08/08/18 08/09/18 08/10/18 23:59 23:59 23:59 Intake Total 4250 4727 1950 Output Total 3801 1750 650 Balance 449 2977 1300 General: No acute distress, Other (Is napping, appears comfortable, in no distress) HEENT: Mucous membr. moist/pink Neck: Supple Neuro: Non Focal Cardiovascular: Regular rate Respiratory: No respiratory distress Abdomen: Normal bowel sounds, Soft Extremities: No edema - Results Results: Laboratory Results WBC 16.5 x10^3/uL (4.8-10.8) H 08/09/18 10:30 RBC 3.77 10^6/uL (4.20-5.40) L 08/09/18 10:30 Hgb 11.0 g/dL (12.0-16.0) L 08/09/18 10:30 Hct 33.1 % (37.0-47.0) L 08/09/18 10:30 MCV 87.8 fL (81.0-99.0) 08/09/18 10:30 MCH 29.2 pg (27.0-31.0) 08/09/18 10:30 MCHC 33.2 g/dL (32.0-36.0) 08/09/18 10:30 RDW 14.6 % (12.0-15.0) 08/09/18 10:30 Plt Count 240 10^3/uL (130-450) 08/09/18 10:30 MPV 9.9 fL (7.9-10.8) 08/09/18 10:30 Neut # (Auto) 11.9 10^3/uL (1.5-6.6) H 08/09/18 10:30 Lymph # (Auto) 3.1 10^3/uL (1.5-3.5) 08/09/18 10:30 Glynn # (Auto) 1.2 10^3/uL (0.0-1.0) H 08/09/18 10:30 Eos # (Auto) 0.1 10^3/uL (0.0-0.7) 08/09/18 10:30 Baso # (Auto) 0.1 10^3/uL (0.0-0.1) 08/09/18 10:30 Absolute Nucleated RBC 0.00 x10^3/uL 08/09/18 10:30 Nucleated RBC % 0.0 /100WBC 08/09/18 10:30 PT 15.5 secs (9.9-12.6) H 08/05/18 04:55 INR 1.4 (0.8-1.2) H 08/05/18 04:55 APTT 25.1 secs (24.9-33.3) 08/03/18 15:35 Sodium 129 mmol/L (135-145) L 08/09/18 05:50 Potassium 3.0 mmol/L (3.5-5.0) L 08/09/18 05:50 Chloride 93 mmol/L (101-111) L 08/09/18 05:50 Carbon Dioxide 25 mmol/L (21-32) 08/09/18 05:50 Anion Gap 11.0 (6-13) 08/09/18 05:50 BUN 13 mg/dL (6-20) 08/09/18 05:50 Creatinine 0.3 mg/dL (0.4-1.0) L 08/09/18 05:50 Estimated GFR (MDRD) 215 (>89) 08/09/18 05:50 Glucose 126 mg/dL (70-100) H 08/09/18 05:50 POC Whole Bld Glucose 146 mg/dL (70 - 100) H 08/10/18 11:44 Lactic Acid 0.9 mmol/L (0.5-2.2) 08/05/18 04:55 Calcium 8.1 mg/dL (8.5-10.3) L 08/09/18 05:50 Phosphorus 2.0 mg/dL (2.5-4.6) L 08/09/18 05:50 Magnesium 2.0 mg/dL (1.7-2.8) 08/09/18 05:50 Total Bilirubin 0.5 mg/dL (0.2-1.0) 08/09/18 05:50 AST 32 IU/L (10-42) 08/09/18 05:50 ALT 21 IU/L (10-60) 08/09/18 05:50 Alkaline Phosphatase 97 IU/L (42-121) 08/09/18 05:50 Total Protein 6.0 g/dL (6.7-8.2) L 08/09/18 05:50 Albumin 2.4 g/dL (3.2-5.5) L 08/09/18 05:50 Globulin 3.6 g/dL (2.1-4.2) 08/09/18 05:50 Albumin/Globulin Ratio 0.7 (1.0-2.2) L 08/09/18 05:50 Prealbumin 16 mg/dL (18-45) L 08/09/18 05:50 Triglycerides 68 mg/dL (-149) 08/09/18 05:50 Lipase 31 U/L (22-51) 08/03/18 15:35 Urine Color YELLOW 08/03/18 15:30 Urine Clarity CLEAR (CLEAR) 08/03/18 15:30 Urine pH 7.5 PH (5.0-7.5) 08/03/18 15:30 Ur Specific [place] <=1.005 (1.002-1.030) 08/03/18 15:30 Urine Protein NEGATIVE mg/dL (NEGATIVE) 08/03/18 15:30 Urine Glucose (UA) NEGATIVE mg/dL (NEGATIVE) 08/03/18 15:30 Urine Ketones NEGATIVE mg/dL (NEGATIVE) 08/03/18 15:30 Urine Occult Blood TRACE-INTA (NEGATIVE) 08/03/18 15:30 Urine Nitrite NEGATIVE (NEGATIVE) 08/03/18 15:30 Urine Bilirubin NEGATIVE (NEGATIVE) 08/03/18 15:30 Urine Urobilinogen 0.2 (NORMAL) E.U./dL (NORMAL) 08/03/18 15:30 Ur Leukocyte Esterase NEGATIVE (NEGATIVE) 08/03/18 15:30 Ur Microscopic Review NOT INDICATED 08/03/18 15:30 Urine Culture Comments NOT INDICATED 08/03/18 15:30 - Procedures Procedures: Procedures EXCISION OF ANUS, VIA NATURAL OR ARTIFICIAL OPENING (05/07/16) EXCISION OF RECTUM, VIA NATURAL OR ARTIFICIAL OPENING, DIAGN (05/07/16) INSPECTION OF LOWER INTESTINAL TRACT, ENDO (06/01/16) URIN INCONTIN REPAIR NEC (05/29/14) Sepsis Event Note (H) - Evaluation Possible source of Sepsis: positive: GI tract/intra-abdominal
[2018-08-10] MEDS: TPN (CLINIMIX E 5/15) 2,000 ML with MULTIVITAMIN 10 ML, TRACE ELEMENTS V CONC 1 ML IV SCH ×3 (18:47)
[2018-08-10] MEDS: FAT EMULSION 20% 250 ML IV SCH (18:48)
[2018-08-10] MEDS: MIRTAZAPINE 15 MG TABLET PO SCH (21:19)
[2018-08-10] MEDS: LIDOCAINE PATCH 5% TOP SCH (21:20)
[2018-08-11] MEDS: SODIUM CHLORIDE FLUSH 0.9% 10 ML SYRINGE IVP SCH ×2 (00:40→10:25)
[2018-08-11] MEDS: metroNIDAZOLE 500 MG/100 ML 500 MG/100 ML BAG IV SCH ×2 (00:48→10:19)
[2018-08-11] MEDS: LEVOTHYROXINE 88 MCG TABLET PO SCH (06:28)
[2018-08-11] MEDS: MEROPENEM 1 GM in SODIUM CHLORIDE 0.9% MINIBAG 100 ML IV SCH (06:28)
[2018-08-11] MEDS: FERROUS GLUCONATE 324 MG TABLET PO SCH (10:13)
[2018-08-11] MEDS: MORPHINE ER 15 MG TABLET PO SCH (10:14)
[2018-08-11] MEDS: clonazePAM 0.5 MG TABLET PO SCH (10:16)
[2018-08-11] MEDS: POLYETHYLENE GLYCOL 3350 17 GM PACKET PO SCH (10:18)
[2018-08-11] MEDS: ONDANSETRON 4 MG/2 ML VIAL IVP PRN (10:43)
[2018-08-11] MEDS: SODIUM CHLORIDE FLUSH 0.9% 10 ML SYRINGE IVP PRN (10:44)
[2018-08-11] MEDS: SODIUM CHLORIDE 0.9% 1,000 ML IV SCH (11:40)
--- NOTE | 2018-08-11 12:28 | Discharge Plan ---
"Discharge Plan for SNF / [facility] - Discharge Plan And Transition Orders Problem Reviewed?: Yes Disposition: 03 SNF DC/Xfer Condition: Poor Allergies and Adverse Reactions: Allergies Allergy/AdvReac Type Severity Reaction Status Date / Time nitrofurantoin Allergy Severe Hives Verified 07/13/18 10:34 macrocrystalline * [From Macrodantin] Sulfa (Sulfonamide Allergy Severe Hives Verified 07/13/18 10:34 Antibiotics) Health Concerns: Patient has a abscess of a colonic diverticula, is excessively high risk for surgery, was started on antibiotics for this. She has failure to thrive and wishes are for Hospice care for end-of-life. Plan of Treatment: Peripheral TPN, peripheral IV fluids, IV antibiotics will be discontinued at the time of discharge from the hospital. Under the care of Hospice, only oral, topical, inhaled or sublingual management of her medical conditions will be continued. Care Goals: Quality of life and comfort are now priority. Assessment: He , the DPOA, is in agreement with this plan. - SNF / SENIOR CARE Transition Orders Admit to ([facility]): [facility] Under the care of (Name): Hospice (Dr Canchola) Discharge Diagnosis: (1) Diverticular disease of intestine with perforation and abscess (2) UTI (urinary tract infection) (3) Alzheimer's dementia (4) Hyponatremia (5) Hypokalemia due to inadequate potassium intake (6) FTT (failure to thrive) in adult (7) Anemia, iron deficiiency (8) Depression (9) Intractable pain (10) N&V (nausea and vomiting) (11) Code Status: DNR Medicare Certification Statement: I certify that Post Hospital shelter care is medically necessary on a continuing basis for any of the conditions for which she/he is receiving care during hospitalization. Notify PCP of admission and forward orders to primary provider for signature. Other Notification Orders: Call PCP immediately if patient develops dyspnea, chest pain/tightness or edema. House Bowel Program: Yes Additional Bowel Program Orders: If no BM after 2 days, nurse may give M.O.M. 30ml PO PRN and/or ducolax Supp 1 WA and/or SILVIA 250mg P.O., and/or senna 1-2 tabs PO. On day 3 nurse may give repeat above order until residents constipation is resolved. Annual Influenza Vaccine (between Oct 08 and May 07): No Two-step PPD per [facility] [id number] or approved exception documents: No Oxygen Orders: prn Medication Orders: PLEASE REFER TO THE DISCHARGE MEDICATION LIST. Insulin Orders?: No - Medications New Prescriptions: Ondansetron Odt [Zofran Odt] 4 mg TL Q6HR PRN #60 tablet PRN Reason: Nausea / Vomiting LORazepam [Ativan] 0.5 mg SL Q6H PRN #10 tablet PRN Reason: Anxiety - Diet Type: No added salt Liquids: Thin Supplements: Ensure May have monthly special meal: Yes - Therapies | Activity Activity: Activity as Tolerated Assistance Devices: Walker"
[2018-08-11 15:32] VITALS: BP 150/87
--- NOTE | 2018-08-17 10:14 | DISCHARGE SUMMARY ---
"Discharge Summary Admit Date: 08/03/18 Discharge Date: 08/11/18 Discharging Provider: Dr Ana Ram Primary Care Provider: Dr Brooklynn Conklin Code Status: Do Not Attempt Resuscitation Condition at Discharge: Poor Discharge Disposition: 03 SNF DC/Xfer Discharge Facility Name: [facility] - DIAGNOSES Admission Diagnoses: 1) Recurrence of diverticular abscess 2) Dehydration 3) Dementia 4) Chronic pain from T spine fracture and recent pelvic fracture 5) Malnutrition 6) Recent UTI Discharge Diagnoses with Status of Each Condition: See below - HPI History of Present Illness: This is a 78 y/o white female with a history of dementia on Aricept, depression, malnutrition, chronic pain from a previous T-spine fracture and a fall at home 1 month ago resulting in a pelvic fracture for which she was admitted then for pain control and treatment of a UTI, and had a complication of persistent abdominal and pelvic pain, found to be due to a diverticular abscess. She was sent home with oral antibiotics and planned outpatient management with General Surgery follow-up. Antibiotics had been completed 4 days previously and in the Surgery Clinic she was found to have tachycardia, a fever and recurrence of abdominal pain. She was sent to the ER where a CT confirmed slight worsening of the abscess and possible fistula. She was admitted for iv antibiotics and consideration for surgery. - CONSULTS | PROCEDURES Consultations: Dr Hussein, Dr Collins, Dr Manpreet Canchola Procedures: CVP line placement by Anesthesia - HOSPITAL COURSE Hospital Course: (1) Diverticular disease of intestine with perforation and abscess. She had consultation by 2 surgeons and was offered a colectomy with reanastomosis vs colectomy with colostomy but was felt to be a high surgical risk due to malnutrition. She did not undergo surgery. She had a central iv line placed and was started on iv Meropenem. TPN was also started. She had initial clinical improvement, then developed nausea and vomiting, a worsening WBC and iv Flagyl was added. The agreed to a Hospice consultation, which was done by Dr Canchola, Broker Assistant and she was felt to be a Hospice candidate. She was kept on iv antibiotics and TPN until the day of discharge to [facility]. The plan was to continue with po antibiotics, pain medications and to eventually be accepted by Hospice for comfort care. (2) UTI (urinary tract infection) The empiric iv antibiotics, as for the above, were used for treating the recent UTI. (3) Alzheimer's dementia At admission, her Aricept was stopped since she was initially npo for bowel rest, and as her diet was advanced, she only took sips. The Aricept was not ordered at discharge. (4) Hyponatremia The serum sodium was as low as 129 and she was treat with TPN and IV fluids while she is here. We were decreasing her blood draws for labs, while transitioning to Hospice, and the was agreeable with this. (5) Hypokalemia due to inadequate potassium intake Her Potassium was as low as 3.0, and treatment was as above in #4 (6) FTT (failure to thrive) in adult The patient was documented to have severe protein calorie malnutrition. TPN was administered while here. She only wanted sips of liquids. She was too weak to get OOB during this admission. Remeron and her thyroid replacement were continued. (7) Anemia, iron deficiency Her iron stores were low, found at the recent previous admission, and iron replacement was continued. (8) Depression Her prehospital medications for depression were continued. (9) Intractable pain She was on a Lidocaine patch, Ultram and oral and iv Morphine for pain control. (10) N&V (nausea and vomiting) This developed at mid-hospitalization and was felt to be due to morphine side- effect and possibly worsening of the infection. It resolved with anti-emetics and adjusting her morphine. - ALLERGIES Allergies/Adverse Reactions: Allergies Allergy/AdvReac Type Severity Reaction Status Date / Time nitrofurantoin Allergy Severe Hives Verified 07/13/18 10:34 macrocrystalline * [From Macrodantin] Sulfa (Sulfonamide Allergy Severe Hives Verified 07/13/18 10:34 Antibiotics) - MEDICATIONS Home Medications: Ambulatory Orders Medication Instructions Recorded Confirmed Aspirin [Aspirin EC] 650 mg PO .Q4-6H PRN 07/13/18 08/04/18 Clonazepam 0.25 mg PO DAILY 07/13/18 08/04/18 Lidocaine [Lidoderm] 1 patch TOP DAILY 07/13/18 08/04/18 traMADol [Ultram] 50 mg PO QID PRN 07/13/18 08/04/18 Levothyroxine [Synthroid] 88 mcg PO QDAC #30 tablet 07/17/18 08/04/18 Loperamide [Imodium] 2 mg PO Q4H PRN #30 capsule 07/17/18 08/04/18 Mirtazapine [Remeron] 7.5 mg PO HS #30 tablet 07/17/18 08/04/18 Morphine Sulfate [Morphine Sulf 10 mg PO Q1H PRN #30 ml 07/17/18 08/04/18 Oral (Roxanol)] Clindamycin HCl [Clindamycin 300MG 600 mg PO BID #28 capsule 08/11/18 CAP] LORazepam [Ativan] 0.5 mg SL Q6H PRN #10 tablet 08/11/18 Metronidazole [Flagyl] 500 mg PO DAILY #14 tablet 08/11/18 Morphine ER 15 mg PO BID tablet 08/11/18 Ondansetron Odt [Zofran Odt] 4 mg TL Q6HR PRN #60 tablet 08/11/18 - PHYSICAL EXAM AT DISCHARGE General Appearance: positive: No acute distress, Other (Somnolent) Eyes Bilateral: positive: Normal inspection ENT: positive: ENT inspection nml Neck: positive: Nml inspection Respiratory: positive: No respiratory distress Cardiovascular: positive: Regular rate & rhythm, No murmur Abdomen: positive: Non-tender, Nml bowel sounds Skin: positive: Pallor Extremities: positive: No pedal edema - LABS Result Diagrams: 08/09/18 10:30 08/09/18 05:50 - DIAGNOSTIC IMAGING Diagnostic Imaging Results: Final report reviewed - FOLLOW UP Follow Up: To be determined at [facility], with likely transition to be under the care of Hospice while there. - TIME SPENT Time Spent in Discharge (Minutes): 60"
== END 2018-08-11 16:35 | DRG 391 ==
LOC: ED 15:18 → MS2 17:33
PROVIDERS: ADMIT Specialist; ATTEND Internal Medicine
PROC: 02HV33Z Insertion of Infusion Device into Superior Vena Cava, Percutaneous Approach (ICD-10-PCS; principal; 2018-08-05)
PROC: 3E0436Z Introduction of Nutritional Substance into Central Vein, Percutaneous Approach (ICD-10-PCS; 2018-08-05)
DX: A41.9 Sepsis, unspecified organism (principal); K57.20 Diverticulitis of large intestine with perforation and abscess without bleeding; E43 Unspecified severe protein-calorie malnutrition; I10 Essential (primary) hypertension; E87.1 Hypo-osmolality and hyponatremia; I50.32 Chronic diastolic (congestive) heart failure; K21.9 Gastro-esophageal reflux disease without esophagitis; E87.2 Acidosis; N30.00 Acute cystitis without hematuria; K63.2 Fistula of intestine; R62.7 Adult failure to thrive; E86.0 Dehydration; E87.6 Hypokalemia; R11.2 Nausea with vomiting, unspecified; T40.2X5A Adverse effect of other opioids, initial encounter; Y92.230 Patient room in hospital as the place of occurrence of the external cause; I11.0 Hypertensive heart disease with heart failure; G30.9 Alzheimer's disease, unspecified; F02.80 Dementia in other diseases classified elsewhere, unspecified severity, without behavioral disturbance, psychotic disturbance, mood disturbance, and anxiety; F32.9 Major depressive disorder, single episode, unspecified; D50.9 Iron deficiency anemia, unspecified; G89.4 Chronic pain syndrome; M80.052D Age-related osteoporosis with current pathological fracture, left femur, subsequent encounter for fracture with routine healing; M54.6 Pain in thoracic spine; M48.54XS Collapsed vertebra, not elsewhere classified, thoracic region, sequela of fracture; M54.12 Radiculopathy, cervical region; E89.0 Postprocedural hypothyroidism; Y83.6 Removal of other organ (partial) (total) as the cause of abnormal reaction of the patient, or of later complication, without mention of misadventure at the time of the procedure; F41.9 Anxiety disorder, unspecified; Z51.5 Encounter for palliative care; Z66 Do not resuscitate; Z68.23 Body mass index [BMI] 23.0-23.9, adult; Z79.899 Other long term (current) drug therapy; Z91.81 History of falling; Z85.3 Personal history of malignant neoplasm of breast; Z79.82 Long term (current) use of aspirin; Z87.19 Personal history of other diseases of the digestive system
CPT/HCPCS: 36415; 71045; 74177; 80048; 80053; 81003; 83605; 83690; 83735; 84100; 84134; 84478; 85025; 85610; 85730; 87040; 93005; 96365; 96368; 96375; 99283; 99285; A9270; C1751; J1170; J2185; J3370; J3480; J3490; Q9967; 81001; 87086; 99284

== ENCOUNTER 2018-08-11 16:37 | Outpatient (CLI) | payer MEDICARE, OTHER | END 2018-08-11 16:38 | disposition hospice, inpatient (51) | LOC: EMS 16:37 | PROVIDERS: ATTEND Surgery | DX: R53.83 Other fatigue (principal); Z74.01 Bed confinement status | CPT/HCPCS: A0425; A0428 ==

== ENCOUNTER 2018-08-15 08:00 | Outpatient (CLI) | payer MEDICARE, OTHER ==
[2018-08-15 23:35] LABS: BASOPHILS % (AUTO) 0.5 %; EOSINOPHILS # (AUTO) 0.1 10^3/uL (0.0-0.7); EOSINOPHILS % (AUTO) 0.7 %; HGB - HEMOGLOBIN 10.9 g/dL (12.0-16.0); LYMPHOCYTES # (AUTO) 1.8 10^3/uL (1.5-3.5); MEAN CORPUSCULAR HEMOGLOBIN 29.9 pg (27.0-31.0); MEAN CORPUSCULAR HGB CONC 33.7 g/dL (32.0-36.0); MEAN CORPUSCULAR VOLUME 88.5 fL (81.0-99.0); MEAN PLATELET VOLUME 11.2 fL (7.9-10.8); MONOCYTES # (AUTO) 0.5 10^3/uL (0.0-1.0); NEUTROPHILS # (AUTO) 6.1 10^3/uL (1.5-6.6); PLT - PLATELET COUNT 312 10^3/uL (130-450); RED BLOOD COUNT 3.65 10^6/uL (4.20-5.40); RED CELL DISTRIBUTION WIDTH 14.7 % (12.0-15.0); WHITE BLOOD COUNT 8.6 x10^3/uL (4.8-10.8)
== END 2018-08-15 23:59 | disposition home or self-care (01) ==
LOC: LAB.R 08:00
DX: E87.1 Hypo-osmolality and hyponatremia (principal); E87.6 Hypokalemia
CPT/HCPCS: 85025

== ENCOUNTER 2018-08-15 08:00 | Outpatient (CLI) | payer MEDICARE, OTHER ==
[2018-08-15 21:11] LABS: CALCIUM 7.9 mg/dL (8.5-10.3); CREATININE 0.5 mg/dL (0.4-1.0)
== END 2018-08-15 23:59 | disposition home or self-care (01) ==
LOC: LAB.R 08:00
DX: K63.0 Abscess of intestine (principal); N39.0 Urinary tract infection, site not specified; E87.1 Hypo-osmolality and hyponatremia; E87.6 Hypokalemia
CPT/HCPCS: 80048; 85025

== ENCOUNTER 2018-08-16 08:00 | Outpatient (CLI) | payer MEDICARE, OTHER ==
[2018-08-16 18:31] LABS: CALCIUM 7.9 mg/dL (8.5-10.3); CREATININE 0.4 mg/dL (0.4-1.0)
== END 2018-08-16 23:59 | disposition home or self-care (01) ==
LOC: LAB.R 08:00
DX: K63.0 Abscess of intestine (principal)
CPT/HCPCS: 80048

== ENCOUNTER 2018-08-18 08:00 | Outpatient (CLI) | payer MEDICARE, OTHER ==
[2018-08-18 12:44] LABS: CREATININE 0.5 mg/dL (0.4-1.0)
== END 2018-08-18 23:59 | disposition home or self-care (01) ==
LOC: LAB.R 08:00
DX: K63.0 Abscess of intestine (principal)
CPT/HCPCS: 80048